=== PATIENT | male | born 1960 | race Caucasian/White ===

== ENCOUNTER 2016-11-08 17:59 | Inpatient (IN) | payer OTHER ==
[~2016-11-08] VITALS: Ht 165.1 cm; Wt 65.2 kg
[~2016-11-08 17:59] MED LIST: ABILIFY5 MG PO; CARAFATE E1 GM/10 ML PO; KLOR-CON M2020 MEQ PO; PRENATABS RX PO; PROTONIX40 MG PO; SLOW-MAG PO
--- NOTE | 2016-11-08 20:57 | ED ORDER SUMMARY ---
..... Patient: SURENDRA COVARRUBIAS OrderSheet [facility] VisitID: [id number] [place] [address] 56y, M Registration Date/Time: 11/08/2016 ORDER SHEET Weight: 68.0 kg (stated) Allergies: NKDA GENERAL ORDERS: Veterinary Epidemiologist (Continuous) (GIB) (18:42 11/08/2016 Jean Garcia) (18:53 LWhalen R.N.) (18:54 JSimbeck R.N.) CBC w Diff Urgent (18:42 11/08/2016 Jean Garcia) (Ack 18:47 Sushant) (18:53 LWhalen R.N.) (18:54 JSimbeck R.N.) CMP Urgent (18:42 11/08/2016 Jean Garcia) (Ack 18:47 Sushant) (18:53 LWhalen R.N.) (18:54 JSimbeck R.N.) UA-Culture if indicated Urgent (18:42 11/08/2016 Jean Garcia) (Ack 18:47 Sushant) (21:34 CBkoko R.N.) PT with INR Urgent (18:42 11/08/2016 Jean Garcia) (Ack 18:47 Sushant) (18:53 LWhalen R.N.) (18:54 JSimbeck R.N.) PTT Urgent (18:42 11/08/2016 Jean Garcia) (Ack 18:47 Sushant) (18:53 LWhalen R.N.) (18:54 JSimbeck R.N.) Lipase Urgent (18:42 11/08/2016 Jean Garcia) (Ack 18:47 Sushant) (18:53 LWhalen R.N.) (18:54 JSimbeck R.N.) Urine Drug Screen Urgent (18:42 11/08/2016 Jean Garcia) (Ack 18:47 Sushant) (21:34 CBradburn R.N.) Type & Screen Urgent (18:42 11/08/2016 Jean Garcia) (Ack 18:47 Sushant) (18:53 LWhalen R.N.) (18:54 JSimbeck R.N.) Ethyl Alcohol Urgent (18:42 11/08/2016 Jean Garcia) (Ack 18:47 Sushant) (18:53 LWhalen R.N.) (18:54 JSimbeck R.N.) Lactate, Serum Urgent (18:42 11/08/2016 Jean Garcia) (Ack 18:47 Sushant) (18:53 LWhalen R.N.) (18:54 JSimbeck R.N.) Pulse oximeter (18:42 11/08/2016 Jean Garcia) (18:54 JSemmaeck R.N.) Potassium Urgent (19:16 11/08/2016 Jean Garcia) (Ack 19:18 AMcQuoid ER Tech1) (19:40 CBradburn R.N.) Lactate, Serum Urgent (19:40 11/08/2016 Ibeth R.N. per protocol) (19:41 CBradburn R.N.) EKG - ER Stat (20:23 11/08/2016 Jean Garcia) (20:36 CBradburn R.N.) MEDICATION ORDERS: IV FLUIDS: IV NS : initial bolus 2 L, then none - for X1 (NOW) (18:42 11/08/2016 Jean Garcia) (18:57 LWhalen R.N.) Protonix IVP 80mg 80 mg (Mix in NS 20ml over 4min) (18:42 11/08/2016 Jean Garcia) (Ack 19:10 CBradburn R.N.) (19:15 CBradrogelio R.N.) Valium IV 10 mg (HIGH ALERT MEDICATION, NOW) (19:11 11/08/2016 Jean Garcia) (Cancelled: all out in the ED19:12 Jean Garcai) Ativan IV 2 mg (HIGH ALERT MEDICATION, NOW) (19:12 11/08/2016 Jean Garcia) (Ack 19:22 CBradburn R.N.) (19:23 Ibeth R.N.) Potassium Chloride IV 20 meq/100mL (HIGH ALERT MEDICATION, NOW, Run no faster than 10 mEq/hr) (19:15 11/08/2016 Jean Garcia) (Ack 19:25 Ibeth Collazo) (19:41 Ibeth Collazo) ORDER SHEET NOTES: [Electronically signed by Waleska Narayan R.N. (:11/08/2016)] [Electronically signed by London Camacho Dr. (11:47 11/09/2016)] [Electronically locked/signed by Waleska Narayan R.N. (:11/08/2016)]
--- NOTE | 2016-11-08 20:57 | ED CLINICAL REPORT ---
Clinical Report - Physicians/Mid Levels [facility] [address] [place] [address] 11/08/2016 18:00 Patient: SURENDRA COVARRUBIAS Time Seen: 1803. Arrived- By ambulance. Historian- patient and EMS personnel. HISTORY OF PRESENT ILLNESS Chief Complaint: VOMITING BLOOD. This started past few days, has been moderate and is still present. It was abrupt in onset and has been constant but is not gone now. The patient has had dark stools, nausea, vomiting and moderate abdominal pain. The pain is described as generalized and located in the epigastrium. No recent travel. No known contact with a sick individual. Similar symptoms previously: Recent medical care: Not recently seen/assessed. REVIEW OF SYSTEMS No fever, difficulty breathing, chest pain or skin rash. All systems otherwise negative, except as recorded above. PAST HISTORY See nurses notes. Medications: Gabapentin Oral 300 mg, 2x a day. PriLOSEC Oral. Allergies: NKDA. SOCIAL HISTORY Never smoker. Heavy alcohol use; consumes a large amount of liquor. No drug use. No recent travel. Is a local resident. FAMILY HISTORY (no fam hx of bleeding problems). ADDITIONAL NOTES The nursing notes have been reviewed. PHYSICAL EXAM Appearance: Alert. Oriented X3. No acute distress. Eyes: Pupils equal, round and reactive to light. Eyes normal inspection. No conjunctival findings or pale conjunctivae. ENT: Ears normal. Nose normal. Dry mucous membranes present. Pharynx normal. Neck: Normal inspection. Neck supple. CVS: Tachycardia. Heart sounds normal. Pulses normal. Rhythm normal. Respiratory: No respiratory distress. Breath sounds normal. No rales, rhonchi or wheezes. Abdomen: Soft and nontender. Bowel sounds normal. No mass. Back: Normal inspection. Rectal: Rectal exam normal and nontender. Stool color normal. Stool heme negative. (POC test reference range: negative). Skin: Skin warm and dry. Normal skin color. No rash. Normal skin turgor. Extremities: Extremities exhibit normal ROM. No lower extremity edema. Neuro: Oriented X 3. No motor deficit. No sensory deficit. (no tremor.). LABS, X-RAYS, AND EKG EKG: Regular narrow-complex tachycardia (104). Sinus tachycardia. Normal P waves. Normal DIONISIO. Normal QRS complex. Normal axis. Normal ST and T waves, QT and QTc. sinus tachycardia. The study has been interpreted contemporaneously. The study has been independently viewed by me. The EKG appears to be a good tracing. I agree with and confirm the computer reading of the EKG. Laboratory Tests: CBC w Diff: (RENAY: 11/08/2016 18:15) ( MsgRcvd 11/08/2016 18:55) Final results Test Result Flag Units (Reference) WHITE BLOOD COUNT 7.4 K/uL (4.5-11.5) RED BLOOD COUNT 5.10 M/uL (4.50-5.90) HEMOGLOBIN 16.7 gm/dL (13.5-17.5) HEMATOCRIT 48.5 % (41.0-53.0) MEAN CELL VOLUME 95 fL (80-100) MEAN CORPUSCULAR HGB 33 pg (26-34) MEAN CORPUSCULAR HGB CONC 34 g/dL (31-37) RED CELL DISTRIBUTION WIDTH 14.0 % (11.6-14.8) PLATELET COUNT 172 K/uL (150-400) NEUTROPHIL % 73.2 % (50-75) LYMPH % 12.8 L % (25-40) MONO % 13.4 % (3-14) EOSINOPHIL % 0.3 % (0-4) BASOPHIL % 0.3 % (0-2) PT with INR: (RENAY: 11/08/2016 18:15) ( MsgRcvd 11/08/2016 19:13) Final results Test Result Flag Units (Reference) INR 1.0 (0.8-1.2) Low Intensity Therapy: INR 1.5-2.0 PT range 18.5-23.1Mod.Intensity Therapy: INR 2.0-3.0 PT range 23.1-31.5High Intensity Therapy: INR 2.5-3.5 PT range 27.4-35.5High Intensity Therapy 2: INR 3.0-4.0 PT range 31.5-39.3 APTT 33 SECONDS (24-34) [id number]: (RENAY: 11/08/2016 19:35) ( [facility] 11/08/2016 20:24) Final results Test Result Flag Units (Reference) POTASSIUM 2.4 *L mmol/L (3.5-5.1) CRITICAL RESULTS CALLEDCalled to Vale WATSON 11/08/162022Were 2 patient identifiers used? YWas the result read back? Y MAGNESIUM 1.8 mg/dL (1.8-2.4) Lactate, Serum: (RENAY: 11/08/2016 18:50) ( [facility] 11/08/2016 19:44) Final results Test Result Flag Units (Reference) LACTIC ACID 3.5 H mmol/L (0.4-2.0) CRITICAL RESULTS CALLEDCalled to PRELIMINARY CALLED TO Vale PANDYA11/08/161942Were 2 patient identifiers used? YWas the result read back? YCRITICAL RESULTS CALLEDCalled to PRELIMINARY CALLED TO Vale PANDYA11/08/161943Were 2 patient identifiers used? YWas the result read back? Y CMP: (RENAY: 11/08/2016 18:15) ( [facility] 11/08/2016 19:16) Final results Test Result Flag Units (Reference) GLUCOSE 155 H mg/dL (70-110) BUN 10 mg/dL (7-18) CREATININE 0.9 mg/dL (0.6-1.3) Estimated GFR >60 mL/min Estimated GFR- >60 mL/min Note: Persistent reduction over 3 months in eGFR<60 mL/min/1.73 m2 defines CKD. Patients with eGFR values>=60 mL/min/1.73 m2 may also have CKD if evidence ofpersistent proteinuria. Additional information may be foundat [email or web address]. SODIUM 136 mmol/L (136-145) POTASSIUM 2.5 *L mmol/L (3.5-5.1) CRITICAL RESULTS CALLEDCalled to Vale ORTIZ 11/08/16 1915Were 2 patient identifiers used? YWas the result read back? Y CHLORIDE 93 L mmol/L (98-107) CARBON DIOXIDE 30 mmol/L (21-32) CALCIUM 8.7 mg/dL (8.5-10.1) TOTAL PROTEIN 7.4 g/dL (6.4-8.2) ALBUMIN 3.7 g/dL (3.3-5.0) BILIRUBIN, TOTAL 0.8 mg/dL (0.0-1.0) ALKALINE PHOSPHATASE 128 H U/L (46-116) AST (SGOT) 63 H U/L (15-37) ALT (SGPT) 53 U/L (12-78) MAGNESIUM 1.8 mg/dL (1.8-2.4) LIPASE 268 U/L (73-393) ETHYL ALCOHOL 363 H mg/dL (3-10) Type & Screen: (RENAY: 11/08/2016 18:15) ( MsgRcvd 11/08/2016 19:36) Final results Test Result Flag Units (Reference) PATIENT BLOOD TYPE O Positive ANTIBODY SCREEN NEGATIVE . PROGRESS AND PROCEDURES Course of Care: the patient is a pleasant 56-year-old male with past medical history significant for alcohol abuse presented for evaluation of alcohol intoxication and possible GI bleed. Workup initially started for GI bleed secondary to alcohol. Patient reports that he is vomiting "dark stuff". Patient asked exactly what he describes as dark. Patient continues to say it is dark. Further clarification asked. Some difficulty was needed to obtain that the patient was vomiting dark red colored vomit. Patient did not describe the vomitus coffee grounds. Patient states that he has been vomiting blood for the past several days. Patient with negative guaiac. Patient with other abnormalities with this workup. Potassium is noted to be low. Repeat potassium was ordered. I thinks also elevated. Repe Potassium was replaced here in the emergency department. EKG was also obtained for any signs of EKG changes due to hypokalemia. QT is slightly prolonged for a male at the QTc at 489. Otherwise patient is persistently slightly tachycardic. Patient did improve with IV fluids as well as a slight ptosis of Ativan. Patient's alcohol level is noted to be over 300. Because of the patient's electrolyte abnormalities and persistent lactic acidosis, feel the patient should be admitted to the hospital. Had a discussion with the hospitalist in regards to the patient's report of GI bleed. Do not feel further workup is warranted at this time however hemoglobin and hematocrit should be monitored in the hospital for any signs ofsignificant drop. Discussed with the patient is workup here in the emergency department including diagnosis and plan of care. All questions have been answered. The patient is agreeable to treatment plan. Appreciate hospitalist help and care with the patient. Critical care performed (40 minutes). Time is exclusive of separately billable procedures. Time includes: direct patient care, patient reassessment, coordination of patient care, review of patient's medical records, medical consultation and documentation of patient care. Disposition: Admitted to Acute Care. CLINICAL IMPRESSION Severe hypokalemia lactic acidemia upper GI bleed alcohol abuse severe dehydration. (Electronically signed by London Camacho Dr. 11/09/2016 11:47)
--- NOTE | 2016-11-08 20:57 | ED NURSING NOTES ---
Clinical Report - Nurses [facility] [address] [place] [address] 11/08/2016 18:00 Patient: SURENDRA COVARRUBIAS TRIAGE Triage time 18:Nov 08 2016. Acuity: LEVEL 3. Chief Complaint: (Wants detox). AGNES COMA SCORE: Agnes Coma Scale: 15- eyes open spontaneously (4); best verbal response- oriented x 4 (5); best motor response- obeys commands (6). --18:10 Alejandro Cabral R.N. 18:03 11/08/16. BP: 135/92. HR: 114. RR: 23. O2 saturation: 94%. Temp: 98 F. --18:10 Alejandro Cabral R.N. 18:13 11/08/16. Pain level now 9/10. --18:13 Alejandro Cabral R.N. Weight: 68 kg stated. Height/Length: 70 inches Per Patient. BMI: 21.5. --18:08 Alejandro Cabral R.N. Medications Gabapentin Oral 300 mg, 2x a day. PriLOSEC Oral. --18:06 Alejandro Cabral R.N. Allergies NKDA. --18:06 Alejandro Cabral R.N. History Arrived by EMS. Historian: patient. ( Has been drinking about a 1/5th a day for a month. House was filled with stool and vomit. States he is ready for detox. Patient states throwing up blood.). No fever, weakness, cough, difficulty breathing or skin rash. Denies muscle aches. Treatment VOLUNTEER RECRUITMENT COORDINATOR: None. PAST MEDICAL HX: No history of diabetes mellitus, hypertension or heart disease. SOCIAL HX: Current every day heavy tobacco smoker (cigarette)- less than 1 pack per day. Alcohol use; consumes a large amount of liquor daily. No drug use. SELF HARM ASSESSMENT: A self harm assessment was performed. The patient answered "no" to the question "Have you recently felt down, depressed, or hopeless?" and "Do you have thoughts of harming or killing yourself?". FALL RISK ASSESSMENT: Fall risk assessment completed. No fall risk identified. NUTRITIONAL RISK ASSESSMENT: The nutritional risk assessment revealed no deficiencies. FUNCTIONAL ASSESSMENT: Functional assessment: no impairments noted. LEARNING NEEDS ASSESSMENT: The learning needs assessment revealed no barriers. ABUSE ASSESSMENT: Abuse assessment: (yes) The patient was asked "Do you feel safe in your home?". SKIN INTEGRITY ASSESSMENT: Skin integrity risk assessment completed. No skin integrity risk identified. --18:10 Alejandro Cabral R.N. PROBLEMS: Hypertension. Alcoholism. Abdominal Pain. Alcohol abuse. Suicidal Ideation. ETOH. COPD - Chronic Obstructive Pulmonary Disease. Seizure. Stomach Ulcers. Lifestyle / Substance Problems. Gastritis. Bipolar Disorder. Substance Abuse. Alcohol Intoxication. Sinus Tachycardia. Alcohol Withdrawal. Hypokalemia. Immunizations. --18:06 Alejandro Cabral R.N. ADDITIONAL SURGERIES: Endoscopy. Eye surgery. Gastric surgery. Leg surgery. --18:06 Alejandro Cabral R.N. PHYSICAL ASSESSMENT To room via stretcher. ( +hiccups). GENERAL / NEURO / PSYCH: Alert. Oriented X 4. Appears anxious. HEENT: Pupils equal, round and reactive to light. No facial asymmetry noted. Mucous membranes are pink. RESPIRATORY: Respirations not labored. Chest nontender. Breath sounds within normal limits. CVS: Normal sinus rhythm noted. Capillary refill less than 2 seconds. Pulses within normal limits. GI / : ( States last BM one week ago.+ stomach pain). Abdomen soft and nontender. SKIN: ( scratches on face and body). --18:12 Alejandro Cabral R.N. NURSING PROGRESS NOTES The initial plan of care for this patient includes an assessment with efforts to address patient positioning, appropriate ambient lighting and comfortable environmental temperature; impairment of the gastrointestinal and neurological system. monitor tech, pulse oximeter and NIBP monitor placed on patient. Patient gowned. Head of bed elevated 75 degrees. Reassurance given. Call light placed in reach. Side rails up x 1. Bed placed in lowest position. Brakes of bed on. --18:13 Alejandro Cabral R.N. 18:43 11/08/2016 Site #2 started via IV in the left hand with an 18g angiocath, with aseptic technique and good blood return; one attempt. Saline lock flushed with saline. --18:58 Alejandro Cabral R.N. 18:52 11/08/2016 Site #1 started via IV in the right forearm with an 18g angiocath, with aseptic technique and good blood return; one attempt. Blood drawn: rainbow set. Labeled in the presence of the patient and sent to the lab. Saline lock flushed with 10 mL saline. --18:57 Alejandro Cabral R.N. 18:57 11/08/2016 Started bag #1 1000 mL IV Fluids IV NS (Saline); at 1000 mL/hr over 1 hour(s) via site #1 via IV pump. Allergies verified and confirmed 5 rights. IV patency established. IV site checked: no pain, redness, or swelling. IV flushed thoroughly pre- and post-medication administration. --18:57 Alejandro Cabral R.N. 19:15 11/08/2016 PROTONIX (Pantoprazole Sodium) IVP 80 mg given over 2 minute(s) via site #1. Allergies verified and confirmed 5 rights. IV patency established. IV site checked: no pain, redness, or swelling. IV flushed thoroughly pre- and post-medication administration. IVP given by RN. --19:15 Waleska Narayan R.N. 19:22 11/08/2016 Ativan (LORazepam) IVP 2 mg given over 2 minute(s) via site #1. Allergies verified, confirmed 5 rights and sedative warning given to the patient. IV patency established. IV site checked: no pain, redness, or swelling. IV flushed thoroughly pre- and post-medication administration. IVP given by RN. --19:23 Waleska Narayan R.N. Critical value relayed to ED by pema. Critical value received by hermelinda fischer Lactate level: 3.5. Critical value read back. Verified lab result and patient ID. ED physician notifed of critical value. --19:29 Hermelinda Bhardwaj Critical value relayed to ED by lab 19:12. Critical value received by dara. K: 2.5. Critical value read back. ED physician notifed of critical value (Dino). Orders were received. --19:32 Waleska Narayan R.N. 19:40 11/08/2016 Started 20 meq of Potassium Chloride (Potassium Chloride) IVPB in bag #1 100 mL; over 2 hour(s) via site #1 via IV pump. Allergies verified and confirmed 5 rights. IV patency established. IV site checked: no pain, redness, or swelling. IV flushed thoroughly pre- and post-medication administration. --19:41 Waleska Narayan R.N. 19:41 11/08/2016 Site #2 removed. Catheter intact. Manual pressure and bandage applied (IV no longer flowing, Patent IV in right arm). --19:42 Waleska Narayan R.N. 19:15 11/08/16. BP: 118/76 taken on the left arm, while lying. HR: 116 (regular and tachycardic). RR: 18. O2 saturation: 95% on room air. Pain level now: 0/10. --19:45 Waleska Narayan R.N. Overall patient status is the same. GENERAL / NEURO / PSYCH: The patient reports anxiety is still present and worsening and currently moderate in severity. --19:45 Waleska Narayan R.N. Oxygen administered. --19:51 Waleska Narayan R.N. 20:00 11/08/2016 Ativan IVP Response: symptoms have improved the patient feels better. (pt resting better,). --20:00 Waleska Narayan R.N. Overall patient status is improved- he states feels better. GENERAL / NEURO / PSYCH: The patient reports anxiety is still present but improving and currently mild in severity. RESPIRATORY: No respiratory distress. Breath sounds normal. SKIN: Skin is warm and dry. Skin color within normal limits. --20:01 Waleska Narayan R.N. Critical value relayed to ED by Pema 20:23. Critical value received by Dara. K: 2.4. Critical value read back. Verified lab result and patient ID. ED physician notifed of critical value (Dino). Orders were not received. --20:24 Waleska Narayan R.N. EKG time: (2032 PM). EKG was performed by a nurse and shown to the ED physician. dino. Reassessment after oxygen and fluids administered, intervention and medication administered (ativan). He reports no complaints and he is calm and sleeping. Overall patient status is improved- he states feels better. RESPIRATORY: No respiratory distress. Breath sounds normal. SKIN: Skin is warm and dry. Skin color within normal limits. --20:38 Waleska Narayan R.N. 20:44 11/08/16. BP: 121/78 taken on the left arm, while lying. HR: 111 (regular and tachycardic). RR: 20 (regular and unlabored). O2 saturation: 96% on nasal cannula at 3 liters/minute. Temp: 98.5 F (oral). Pain level now: 0/10. --20:46 Waleska Narayan R.N. Overall patient status is improved- he states feels better. --20:46 Waleska Narayan R.N. Two patient identifiers checked. Call light placed in reach. Side rails up x 2. Bed placed in lowest position. Brakes of bed on. --20:46 Waleska Narayan R.N. Patient ID band checked for patient name: patient confirmed. Instructions provided to collect clean catch urine and patient verbalized understanding. Clean catch urine collected with return of yellow-colored clear urine; sample sent to lab for urinalysis, culture and drug screen. Specimen labeled in the presence of the patient (2100). --21:16 Waleska Narayan R.N. 21:34 11/08/2016 IV Fluids IV NS Discontinued: bag #2 completed. Total amount infused: 2000 mL. IV patency established. IV site checked: no pain, redness, or swelling. IV flushed thoroughly. --21:34 Waleska Narayan R.N. 21:35 11/08/2016 Potassium Chloride IVPB Discontinued: bag #1 completed. Total amount infused: 100 mL. IV patency established. IV site checked: no pain, redness, or swelling. IV flushed thoroughly. --21:35 Waleska Narayan R.N. Two patient identifiers checked. Call light placed in reach. Side rails up x 2. Bed placed in lowest position. Brakes of bed on. --22:12 Waleska Narayan R.N. 22:11 11/08/16. BP: 111/74. HR: 110. RR: 18. O2 saturation: 97% on nasal cannula at 2 liters/minute. Temp: 98.6 F (oral). Pain level now: 0/10. --22:12 Waleska Narayan R.N. DISPOSITION / DISCHARGE Report was given to a nurse via a phone call. Report included patient's care, treatment, medications, reviewed medication reconcilliation, and condition (including any recent changes or anticipated changes). All questions were answered. Report was acknowledged and care was transferred. (Miguel RN). --22:12 Waleska Narayan R.N. Transported via stretcher by tech with O2. Bed obtained and ready (204A). --22:13 Waleska Narayan R.N. 22:13 11/08/2016 Site #[address] upon admission; patent, no pain and no signs of infection or infiltration. Good blood return present. Flushed with 10 mL saline; flushes easily. --22:13 Waleska Narayan R.N. Departure time: 2217. --22:26 Waleska Narayan R.N. 22:26 11/08/16. BP: deferred. HR: deferred. RR: deferred. O2 saturation: deferred. Temp: deferred. End tidal CO2: deferred. Pain level now deferred. --22:26 Waleska Narayan R.N. Locked/Released at 11/08/2016 22:26 by Waleska Narayan R.N.
--- NOTE | 2016-11-08 20:57 | ED ORDER SUMMARY ---
..... Patient: SURENDRA COVARRUBIAS OrderSheet [facility] VisitID: [id number] [place] [address] 56y, M Registration Date/Time: 11/08/2016 ORDER SHEET Weight: 68.0 kg (stated) Allergies: NKDA GENERAL ORDERS: Band Maker (Continuous) (GIB) (18:42 11/08/2016 Jean Garcia) (18:53 LWhalen R.N.) (18:54 JSimbeck R.N.) CBC w Diff Urgent (18:42 11/08/2016 Jean Garcia) (Ack 18:47 Sushant) (18:53 LWhalen R.N.) (18:54 JSimbeck R.N.) CMP Urgent (18:42 11/08/2016 Jean Garcia) (Ack 18:47 Sushant) (18:53 LWhalen R.N.) (18:54 JSimbeck R.N.) UA-Culture if indicated Urgent (18:42 11/08/2016 Jean Garcia) (Ack 18:47 Sushant) (21:34 CBkoko R.N.) PT with INR Urgent (18:42 11/08/2016 Jean Garcia) (Ack 18:47 Sushant) (18:53 LWhalen R.N.) (18:54 JSimbeck R.N.) PTT Urgent (18:42 11/08/2016 Jean Garcia) (Ack 18:47 Sushant) (18:53 LWhalen R.N.) (18:54 JSimbeck R.N.) Lipase Urgent (18:42 11/08/2016 Jean Garcia) (Ack 18:47 Sushant) (18:53 LWhalen R.N.) (18:54 JSimbeck R.N.) Urine Drug Screen Urgent (18:42 11/08/2016 Jean Garcia) (Ack 18:47 Sushant) (21:34 CBradburn R.N.) Type & Screen Urgent (18:42 11/08/2016 Jean Garcia) (Ack 18:47 Sushant) (18:53 LWhalen R.N.) (18:54 JSimbeck R.N.) Ethyl Alcohol Urgent (18:42 11/08/2016 Jean Garcia) (Ack 18:47 Sushant) (18:53 LWhalen R.N.) (18:54 JSimbeck R.N.) Lactate, Serum Urgent (18:42 11/08/2016 Jean Garcia) (Ack 18:47 Sushant) (18:53 LWhalen R.N.) (18:54 JSimbeck R.N.) Pulse oximeter (18:42 11/08/2016 Jena Garcia) (18:54 JSemmaeck R.N.) Potassium Urgent (19:16 11/08/2016 Jean Garcia) (Ack 19:18 AMcQuoid ER Tech1) (19:40 CBradburn R.N.) Lactate, Serum Urgent (19:40 11/08/2016 Ibeth R.N. per protocol) (19:41 CBradburn R.N.) EKG - ER Stat (20:23 11/08/2016 Jean Garcia) (20:36 CBradburn R.N.) MEDICATION ORDERS: IV FLUIDS: IV NS : initial bolus 2 L, then none - for X1 (NOW) (18:42 11/08/2016 Jean Garcia) (18:57 LWhalen R.N.) Protonix IVP 80mg 80 mg (Mix in NS 20ml over 4min) (18:42 11/08/2016 Jean Garcia) (Ack 19:10 CBradburn R.N.) (19:15 CBradrogelio R.N.) Valium IV 10 mg (HIGH ALERT MEDICATION, NOW) (19:11 11/08/2016 Jean Garcia) (Cancelled: all out in the ED19:12 Jean Garcia) Ativan IV 2 mg (HIGH ALERT MEDICATION, NOW) (19:12 11/08/2016 Jean Garcia) (Ack 19:22 CBradburn R.N.) (19:23 Ibeth R.N.) Potassium Chloride IV 20 meq/100mL (HIGH ALERT MEDICATION, NOW, Run no faster than 10 mEq/hr) (19:15 11/08/2016 Jean Garcia) (Ack 19:25 Ibeth Collazo) (19:41 Ibeth Collazo) ORDER SHEET NOTES: [Electronically signed by Waleska Narayan R.N. (:11/08/2016)] [Electronically signed by London Camacho Dr. (11:47 11/09/2016)] [Electronically locked/signed by Waleska Narayan R.N. (:11/08/2016)]
[2016-11-08 22:36] VITALS: BP 130/84
--- NOTE | 2016-11-08 23:35 | History & Physical Report ---
Information Source Information Source: Self Reliability: Fair History Chief Complaint vomiting blood History of Present Illness Patient is a 56 year old male who is presenting with a 5 day history of vomiting blood. Patient came to the ER at the behest of his mother who claims that the patient has been living in his own vomit and feces due to his excessive drinking. Patient claims that he does drink excessively every day and that often he consumes close to a pint of hard liquor every single day if not more. Patient claims that he has been drinking this excessively for the past month, with no real reason. Patient says that he was a frequent drinker before but then it spiralled out of control and now he drinks every singel day all day. Five days ago the patient noticed that he was vomiting up blood every time he vomited. Patient vomits frequently due to drinking, so that wasnt abnormal for him. However for him to vomit blood was abnormal. Patient came to the hospital intoxicated on alcohol and was retching frequently. Patient vomited a few times and in all instances there was no blood present. Currently patient is hemodynamically stable. Patient History 1. Alcohol abuse 2. Alcoholic gastritis with bleeding 3. Hypokalemia 4. 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 He lives alone at his own home. Patient is . Patient drinks every day 1 pint daily. He additionally smokes cigarettes for the past 10 years, a half a pack a day. Patient does not uses illicit substances. Family History Family history was reviewed; no changes noted. Medications and Allergies Medications Home Medications Pt claims no medications Current Medications Sig/Francis Start time Last Medication Dose Route Stop Time Status Admin Multivit/ 1 TAB DAILY 11/09 899 AC Folic Acid/Iron PO Thiamine HCl 100 MG DAILY 11/09 899 AC PO Pantoprazole Sodium 40 MG PPIBID 11/09 599 AC IV Potassium Chloride 100 MEQ ONCE 11/09 0515 UNV IV Lorazepam See Dose Q2H PRN 11/08 2300 AC 11/09 Insts (1) IV 0350 Multivitamins 10 ML ONCE ONE 11/08 2300 AC 11/08 Thiamine HCl 100 MG IV 11/09 0559 2346 Folic Acid 1 MG Sodium Chloride 500 ML Ondansetron HCl See Dose Q4H PRN 11/08 2300 AC 11/09 Insts (2) IV 0123 Promethazine HCl See Dose Q4H PRN 11/08 2300 AC Insts (3) IV Acetaminophen 650 MG Q6H PRN 11/08 2145 AC 11/09 PO 0354 Sodium Chloride/ 1,000 ML ASDIRECTED 11/08 2144 11/09 Electrolytes IV 0213 Dose Instructions: (1)Lorazepam: 1 - 2 MG (2)Ondansetron HCl: 4 - 8 MG (3)Promethazine HCl: 12.5 - 25 MG Allergies Coded Allergies: No Known Drug Allergy (11/09/16) Review of Systems Constitutional Sweats, Weakness, Malaise. Denies: Fever, Chills, Other. Eyes Denies: Pain, Vision Change, Conjunctival Inflammation, Eyelid Inflammation, Redness, Other. ENT Denies: Ear Pain, Ear Discharge, Nose Pain, Nasal Discharge, Nasal Congestion, Mouth Pain, Mouth Swelling, Throat Pain, Throat Swelling, Other. Respiratory Denies: Cough, Dry, SOB w/exertion, Wheezing, Hemoptysis, Pleuritic Pain, Sputum , Other. Cardiovascular Denies: Chest Pain, Palpitations, Orthopnea, PND, Edema, Light-headedness, Other. Gastrointestinal Nausea, Vomiting, Abdominal Pain. Denies: Diarrhea, Constipation, Melena, Hematochezia, Other. Genitourinary Denies: Dysuria, Frequency, Incontinence, Hematuria, Retention, Other. Musculoskeletal Denies: Neck Pain, Shoulder Pain, Arm Pain, Back Pain, Hand Pain, Leg Pain, Foot Pain, Other. Neurological Denies: Weakness, Numbness, Incoordination, Change in speech, Confusion, Seizures, Other. Physical Exam Vital Signs / I&Os Vital Signs Date Time Temp Pulse Resp B/P Pulse O2 O2 Flow FiO2 Ox Delivery Rate 11/09 0143 2.0 11/09 0132 98.8 124 18 110/71 95 Nasal 2.0 Cannula 11/08 2358 Nasal 2.0 Cannula 11/08 2236 98.8 120 18 130/84 93 Nasal 2.0 Cannula I&O 11/08 0800 11/08 1600 11/09 0000 Intake Total 0 Output Total 500 Balance -500 General Appearance Alert, Cooperative, No acute distress HEENT Atraumatic, PERRLA, Moist mucous membranes Lungs Clear to auscultation Neck No JVD, No masses Cardiovascular Regular rate and rhythm, Normal S1 and S2, No murmurs, gallops, rubs Abdomen Soft, No tenderness, No guarding Extremities No edema, Normal pulses, Strength = upper ext's, Strength = lower ext's, Anshu's sign negative Skin No Breakdown Neurological Normal speech, Normal tone, Cranial nerves intact, No lateralizing signs Psych/Mental Status Mood normal LAB Results Laboratory Tests 11/08 11/08 11/08 11/08 1815 1850 1935 193 Chemistry Plasma Sodium (136 - 145 mmol/L) 136 Plasma Potassium (3.5 - 5.1 mmol/L) 2.5 2.4 Plasma Chloride (98 - 107 mmol/L) 93 CO2 (Enzymatic) (21 - 32 mmol/L) 30 BUN (7 - 18 mg/dL) 10 Creatinine (0.6 - 1.3 mg/dL) 0.9 Est GFR ( Amer) (mL/min) >60 Est GFR (Non-Af Amer) (mL/min) >60 Glucose (70 - 110 mg/dL) 155 Lactic Acid (0.4 - 2.0 mmol/L) 3.5 3.7 Plasma Calcium (8.5 - 10.1 mg/dL) 8.7 Plasma Magnesium (1.8 - 2.4 mg/dL) 1.8 1.8 Total Bilirubin (0.0 - 1.0 mg/dL) 0.8 AST (15 - 37 U/L) 63 ALT (12 - 78 U/L) 53 Alkaline Phosphatase (46 - 116 U/L) 128 Total Protein (6.4 - 8.2 g/dL) 7.4 Albumin (3.3 - 5.0 g/dL) 3.7 Lipase (73 - 393 U/L) 268 Coagulation INR (0.8 - 1.2) 1.0 APTT (24 - 34 SECONDS) 33 Hematology WBC (4.5 - 11.5 K/uL) 7.4 RBC (4.50 - 5.90 M/uL) 5.10 Hgb (13.5 - 17.5 gm/dL) 16.7 Hct (41.0 - 53.0 %) 48.5 MCV (80 - 100 fL) 95 MCH (26 - 34 pg) 33 RDW (11.6 - 14.8 %) 14.0 Neut % (Auto) (50 - 75 %) 73.2 Lymph % (Auto) (25 - 40 %) 12.8 [place] % (Auto) (3 - 14 %) 13.4 Eos % (Auto) (0 - 4 %) 0.3 Baso % (Auto) (0 - 2 %) 0.3 Plt Count, EDTA (150 - 400 K/uL) 172 PUBS MCHC (31 - 37 g/dL) 34 Toxicology Plasma/Serum Ethyl Alc (3 - 10 mg/dL) 363 11/08 11/09 11/09 2100 0100 0110 Chemistry Plasma Sodium (136 - 145 mmol/L) Cancelled 141 Plasma Potassium (3.5 - 5.1 mmol/L) Cancelled 2.9 Plasma Chloride (98 - 107 mmol/L) Cancelled 100 CO2 (Enzymatic) (21 - 32 mmol/L) Cancelled 29 BUN (7 - 18 mg/dL) Cancelled 8 Creatinine (0.6 - 1.3 mg/dL) Cancelled 0.7 Est GFR ( Amer) (mL/min) Cancelled >60 Est GFR (Non-Af Amer) (mL/min) Cancelled >60 Glucose (70 - 110 mg/dL) Cancelled 107 Plasma Calcium (8.5 - 10.1 mg/dL) Cancelled 7.8 Plasma Magnesium (1.8 - 2.4 mg/dL) 1.6 Total Bilirubin (0.0 - 1.0 mg/dL) 1.0 AST (15 - 37 U/L) 49 ALT (12 - 78 U/L) 40 Alkaline Phosphatase (46 - 116 U/L) 104 Total Protein (6.4 - 8.2 g/dL) 5.7 Albumin (3.3 - 5.0 g/dL) 3.0 Hematology WBC (4.5 - 11.5 K/uL) 8.3 RBC (4.50 - 5.90 M/uL) 4.31 Hgb (13.5 - 17.5 gm/dL) 14.3 Hct (41.0 - 53.0 %) 41.3 MCV (80 - 100 fL) 96 MCH (26 - 34 pg) 33 RDW (11.6 - 14.8 %) 14.5 Neut % (Auto) (50 - 75 %) 75.5 Lymph % (Auto) (25 - 40 %) 13.0 [place] % (Auto) (3 - 14 %) 10.8 Eos % (Auto) (0 - 4 %) 0.5 Baso % (Auto) (0 - 2 %) 0.2 Plt Count, EDTA (150 - 400 K/uL) 139 PUBS MCHC (31 - 37 g/dL) 35 Toxicology Urine Opiates Screen (NEGATIVE) NEGATIVE Urine Methadone Screen (NEGATIVE) NEGATIVE Ur Barbiturates Screen (NEGATIVE) NEGATIVE U Amphetamin/Meth Scrn (NEGATIVE) NEGATIVE MDMA (Ecstasy) Screen (NEGATIVE) NEGATIVE U Benzodiazepines Scrn (NEGATIVE) NEGATIVE Urine Cocaine Screen (NEGATIVE) NEGATIVE U Cannabinoids Screen (NEGATIVE) NEGATIVE Urines Urine Color YELLOW Urine Appearance CLEAR Urine pH (5.0 - 8.0) 6.0 Ur Specific [place] (1.010 - 1.030) <= 1.005 Urine Protein (NEGATIVE) 1+ Urine Ketones (NEGATIVE) NEGATIVE Urine Blood (NEGATIVE) TRACE-LYSED Urine Nitrite (NEGATIVE) NEGATIVE Urine Bilirubin (NEGATIVE) NEGATIVE Urine Urobilinogen (0.2 - 1.0 EU/dL) 0.2 Ur Leukocyte Esterase (NEGATIVE) NEGATIVE Urine RBC (0 - 1 rbc/hpf) 1-3 Urine WBC (0 - 1 wbc/hpf) 1-3 Ur Epithelial Cells (0 - 5 EPI/hpf) RARE Urine Bacteria (NONE SEEN) NONE SEEN Urine Glucose (NEGATIVE) NEGATIVE Urine Comment CULT NOT INDICATED 11/09 0110 Chemistry Lactic Acid (0.4 - 2.0 mmol/L) 3.4 Assessment and Plan Problem List 1. Alcohol abuse Plan - pt has clear alcoholism - his degree of drinking will most lkiely result in withdrawal symptoms - currently pts CIWA score does not require sedation - will provide thiamine and folate supplementation - will provide adequate hydration - ativan on hold in case of seizure/withdrawal activity 2. Alcoholic gastritis with bleeding Plan - pt claims to have been vomiting blood - currently patient has a stable hemoglobin with no evidence of bleeding - will continue to monitor 3. Hypokalemia Plan - pt is presenting with hypokalemia - no ekg changes noted - after 60 meq pts potassium was lower than previously - will rehdyrate with supplmental potassium -will provide 100 meq right now - will continually monitor 4. Lactic acid acidosis Plan - pt has evidence of lactic acidosis - unlcear etiology but presumably from excessive drinking - will adequatly hydrate patient - will trend lactic acid
[2016-11-09] VITALS (10 sets, daily range): BP systolic 110–158; BP diastolic 71–85
[2016-11-09] MEDS ORDERED: NEURONTIN300 MG PO (03:42)
[2016-11-09] MEDS ORDERED: PRILOSEC20 MG PO (03:43)
--- NOTE | 2016-11-09 05:53 | Progress Note ---
Subjective General ADVANCED CARE PLAN History of Present Illness Patient is a 56 year old male who is presenting with a 5 day history of vomiting blood. Patient came to the ER at the behest of his mother who claims that the patient has been living in his own vomit and feces due to his excessive drinking. Patient claims that he does drink excessively every day and that often he consumes close to a pint of hard liquor every single day if not more. Patient claims that he has been drinking this excessively for the past month, with no real reason. Patient says that he was a frequent drinker before but then it spiralled out of control and now he drinks every singel day all day. Five days ago the patient noticed that he was vomiting up blood every time he vomited. Patient vomits frequently due to drinking, so that wasnt abnormal for him. However for him to vomit blood was abnormal. Patient came to the hospital intoxicated on alcohol and was retching frequently. Patient vomited a few times and in all instances there was no blood present. Currently patient is hemodynamically stable. A discussion was undertaken with the patient regarding previous advance care arrangements/decisions. The following advanced directives were noted by the patient and discussed with me at the time of admission. ADVANCED DIRECTIVES: 1. Living well: No 2. POLST: No 3. CODE STATUS: Full Code 4. 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 Donor card: No The patient has expressed interest in pursuing resuscitation. He has opted to pursue intubation/mechanical ventilation, CPR, electrical cardioversion, or life -sustaining efforts involving drugs at the time of cardiopulmonary arrest. The patient's wishes were documented in the chart and orders regarding the patient's wishes entered into the [employer] CPOE system. The "Advance Care Plan Document" was not distributed to patient to discuss with his family. Less than 30 minutes was spent in performing the above tasks and documentation of the patient's advanced care plan.
--- NOTE | 2016-11-09 07:53 | Progress Note ---
Subjective General Note Date: November 09, 2016 Admission Date: November 08, 2016 Hospital Day: 2 PCP: None Status: Inpatient, ACU Advanced Directive: FULL CODE Room: 204-A Admission History: The patient is a 56-year-old white male with a significant past medical history of alcohol abuse/dependence who presented to [facility] emergency department on the day of admission secondary to complaints of hematemesis. [facility] ER evaluation was consistent with acute alcohol intoxication, alcohol dependence/abuse, suspected upper GI bleed, hypokalemia. Secondary to the above, the patient was admitted by Karthik Huggins M.D. for further evaluation and treatment. For other history present illness, past medical history, family history, social history, review of systems, and admission physical examination please see the patient's history and physical examination and ER visit note in the patient's medical record. Subjective: The patient states remains anxious at this time. Slight confusion. Nausea improved. No recent vomiting. Patient requests: None Medications and Allergies Medications Current Medications Sig/Francis Start time Last Medication Dose Route Stop Time Status Admin Potassium Chloride/ 100 ML 1330 ONE 11/09 1330 AC Water IV 11/09 1529 Potassium Chloride/ 100 ML 1130 ONE 11/09 1130 AC Water IV 11/09 1329 Potassium Chloride/ 100 ML 0930 ONE 11/09 0930 AC Water IV 11/09 1129 Multivit/ 1 TAB DAILY 11/09 0900 AC Folic Acid/Iron PO Thiamine HCl 100 MG DAILY 11/09 0900 AC PO Potassium Chloride/ 100 ML 0730 ONE 11/09 0730 AC 11/09 Water IV 11/09 0929 0729 Pantoprazole Sodium 40 MG PPIBID 11/09 0600 AC 11/09 IV 0519 Potassium Chloride 100 MEQ ONCE 11/09 0515 CAN IV Lorazepam See Dose Q2H PRN 11/08 2300 AC 11/09 Insts (1) IV 0625 Ondansetron HCl See Dose Q4H PRN / 2300 AC 11/09 Insts (2) IV 0123 Promethazine HCl See Dose Q4H PRN 11/08 2300 AC Insts (3) IV Acetaminophen 650 MG Q6H PRN / 2145 AC 11/09 PO 0354 Sodium Chloride/ 1,000 ML ASDIRECTED 11/08 2144 AC 11/09 Electrolytes IV 0213 Dose Instructions: (1)Lorazepam: 1 - 2 MG (2)Ondansetron HCl: 4 - 8 MG (3)Promethazine HCl: 12.5 - 25 MG Allergies Coded Allergies: No Known Drug Allergy (11/09/16) Physical Exam Vital Signs / I&Os Vital Signs Date Time Temp Pulse Resp B/P Pulse O2 O2 Flow FiO2 Ox Delivery Rate 11/09 0742 2.0 11/09 0655 98.8 101 18 120/81 94 Nasal 2.0 Cannula 11/09 0143 2.0 11/09 0132 98.8 124 18 110/71 95 Nasal 2.0 Cannula 11/08 2358 Nasal 2.0 Cannula 11/08 2236 98.8 120 18 130/84 93 Nasal 2.0 Cannula I&O 11/09 0000 11/08 1600 11/08 0800 Intake Total 0 Output Total 500 Balance -500 General Appearance Alert, Cooperative, No acute distress Lungs Clear to auscultation Cardiovascular Regular rate and rhythm, Normal S1 and S2, mild tachycardia Abdomen Normal bowel sounds, Soft, No tenderness, No guarding Extremities No cyanosis, No clubbing, No edema Neurological Cranial nerves intact, No lateralizing signs, tremor Psych/Mental Status Confused, anxious LAB Results Laboratory Tests 11/09 11/09 11/09 0110 0110 0100 Chemistry Plasma Sodium (136 - 145 mmol/L) 141 Cancelled Plasma Potassium (3.5 - 5.1 mmol/L) 2.9 Cancelled Plasma Chloride (98 - 107 mmol/L) 100 Cancelled CO2 (Enzymatic) (21 - 32 mmol/L) 29 Cancelled BUN (7 - 18 mg/dL) 8 Cancelled Creatinine (0.6 - 1.3 mg/dL) 0.7 Cancelled Est GFR ( Amer) (mL/min) >60 Cancelled Est GFR (Non-Af Amer) (mL/min) >60 Cancelled Glucose (70 - 110 mg/dL) 107 Cancelled Lactic Acid (0.4 - 2.0 mmol/L) 3.4 Plasma Calcium (8.5 - 10.1 mg/dL) 7.8 Cancelled Plasma Magnesium (1.8 - 2.4 mg/dL) 1.6 Total Bilirubin (0.0 - 1.0 mg/dL) 1.0 AST (15 - 37 U/L) 49 ALT (12 - 78 U/L) 40 Alkaline Phosphatase (46 - 116 U/L) 104 Total Protein (6.4 - 8.2 g/dL) 5.7 Albumin (3.3 - 5.0 g/dL) 3.0 Hematology WBC (4.5 - 11.5 K/uL) 8.3 RBC (4.50 - 5.90 M/uL) 4.31 Hgb (13.5 - 17.5 gm/dL) 14.3 Hct (41.0 - 53.0 %) 41.3 MCV (80 - 100 fL) 96 MCH (26 - 34 pg) 33 RDW (11.6 - 14.8 %) 14.5 Neut % (Auto) (50 - 75 %) 75.5 Lymph % (Auto) (25 - 40 %) 13.0 [place] % (Auto) (3 - 14 %) 10.8 Eos % (Auto) (0 - 4 %) 0.5 Baso % (Auto) (0 - 2 %) 0.2 Plt Count, EDTA (150 - 400 K/uL) 139 PUBS MCHC (31 - 37 g/dL) 35 11/08 05/02 11/08 05/ 2100 1935 1935 1850 Chemistry Plasma Potassium (3.5 - 5.1 mmol/L) 2.4 Lactic Acid (0.4 - 2.0 mmol/L) 3.7 3.5 Plasma Magnesium (1.8 - 2.4 mg/dL) 1.8 Toxicology Urine Opiates Screen (NEGATIVE) NEGATIVE Urine Methadone Screen (NEGATIVE) NEGATIVE Ur Barbiturates Screen (NEGATIVE) NEGATIVE U Amphetamin/Meth Scrn (NEGATIVE) NEGATIVE MDMA (Ecstasy) Screen (NEGATIVE) NEGATIVE U Benzodiazepines Scrn (NEGATIVE) NEGATIVE Urine Cocaine Screen (NEGATIVE) NEGATIVE U Cannabinoids Screen (NEGATIVE) NEGATIVE Urines Urine Color YELLOW Urine Appearance CLEAR Urine pH (5.0 - 8.0) 6.0 Ur Specific [place] (1.010 - 1.030) <= 1.005 Urine Protein (NEGATIVE) 1+ Urine Ketones (NEGATIVE) NEGATIVE Urine Blood (NEGATIVE) TRACE-LYSED Urine Nitrite (NEGATIVE) NEGATIVE Urine Bilirubin (NEGATIVE) NEGATIVE Urine Urobilinogen (0.2 - 1.0 EU/dL) 0.2 Ur Leukocyte Esterase (NEGATIVE) NEGATIVE Urine RBC (0 - 1 rbc/hpf) 1-3 Urine WBC (0 - 1 wbc/hpf) 1-3 Ur Epithelial Cells (0 - 5 EPI/hpf) RARE Urine Bacteria (NONE SEEN) NONE SEEN Urine Glucose (NEGATIVE) NEGATIVE Urine Comment CULT NOT INDICATED 11/08 1814 Chemistry Plasma Sodium (136 - 145 mmol/L) 136 Plasma Potassium (3.5 - 5.1 mmol/L) 2.5 Plasma Chloride (98 - 107 mmol/L) 93 CO2 (Enzymatic) (21 - 32 mmol/L) 30 BUN (7 - 18 mg/dL) 10 Creatinine (0.6 - 1.3 mg/dL) 0.9 Est GFR ( Amer) (mL/min) >60 Est GFR (Non-Af Amer) (mL/min) >60 Glucose (70 - 110 mg/dL) 155 Plasma Calcium (8.5 - 10.1 mg/dL) 8.7 Plasma Magnesium (1.8 - 2.4 mg/dL) 1.8 Total Bilirubin (0.0 - 1.0 mg/dL) 0.8 AST (15 - 37 U/L) 63 ALT (12 - 78 U/L) 53 Alkaline Phosphatase (46 - 116 U/L) 128 Total Protein (6.4 - 8.2 g/dL) 7.4 Albumin (3.3 - 5.0 g/dL) 3.7 Lipase (73 - 393 U/L) 268 Coagulation INR (0.8 - 1.2) 1.0 APTT (24 - 34 SECONDS) 33 Hematology WBC (4.5 - 11.5 K/uL) 7.4 RBC (4.50 - 5.90 M/uL) 5.10 Hgb (13.5 - 17.5 gm/dL) 16.7 Hct (41.0 - 53.0 %) 48.5 MCV (80 - 100 fL) 95 MCH (26 - 34 pg) 33 RDW (11.6 - 14.8 %) 14.0 Neut % (Auto) (50 - 75 %) 73.2 Lymph % (Auto) (25 - 40 %) 12.8 [place] % (Auto) (3 - 14 %) 13.4 Eos % (Auto) (0 - 4 %) 0.3 Baso % (Auto) (0 - 2 %) 0.3 Plt Count, EDTA (150 - 400 K/uL) 172 PUBS MCHC (31 - 37 g/dL) 34 Toxicology Plasma/Serum Ethyl Alc (3 - 10 mg/dL) 363 Assessment and Plan Problem List 1. GI bleed Plan -Patient presented with findings of hematemesis -No documented hematemesis since admission -Protonix 40 mg IV twice a day -Monitor serial H&H -Old endoscopy unless recurrent emesis/hematemesis/significant upper GI bleed noted -Plan upper endoscopy prior to discharge if stable 2. Alcoholic gastritis Status Acute Onset Date Unknown Plan -Patient with probable alcoholic gastritis -DC EtOH use -Protonix 40 mg IV twice a day -Monitor 3. Hypomagnesemia Plan -Patient with findings of hypomagnesemia -IV/by mouth supplementation -Monitor 4. Hypokalemia Plan -Patient with severe hypokalemia -IV supplementation -Monitor 5. Alcohol intoxication Status Acute Onset Date Unknown Plan -Patient with findings of alcohol intoxication on admission -Patient placed on alcohol withdrawal protocol secondary to alcohol dependence -Alcohol consumption of approximately 1/5 of hard liquor per day -We'll encourage alcohol treatment program post hospitalization 6. Alcohol dependence Status Chronic Onset Date Unknown Plan -See above -Patient appears in early stages of alcohol withdrawal syndrome -Altered mental status -Alcohol withdrawal protocol -Encourage alcohol abstinence program post discharge/alcohol treatment program 7. Lactic acid acidosis Plan -Resolved Current status: Fair, unstable Anticipated discharge date: Anticipated discharge 4-5 days Anticipated discharge placement: Home Patient care time: Time spent in chart review, patient interview, physical exam, CPOE, and care documentation: 35 minutes Visit to patient today: 2 Complexity of care: High E&M Codes Rounding: Inpt-High/[id number]
--- NOTE | 2016-11-09 11:47 | ED DISCHARGE INSTRUCTIONS ---
Patient: SURENDRA COVARRUBIAS General Instructions [facility] VisitID: [id number] [address] [place] [address] 56y, M Registration Date/Time: 11/08/2016 Severe hypokalemia lactic acidemia upper GI bleed alcohol abuse severe dehydration. (Electronically signed by London Camacho Dr. 11/09/2016 11:47)
--- NOTE | 2016-11-09 11:47 | ED MAR SUMMARY ---
..... Medication Administration Record [facility] [address] [place] [address] Patient: SURENDRA COVARRUBIAS Visit ID: [id number] 56y, M Weight: 68.0 kg Height/Length: 70 in BMI: 21.5 ALLERGIES: NKDA Start 18:57 11/08/2016 Alejandro Cabral R.N., Stop 21:34 11/08/2016 Waleska Narayan R.N. Medication Administered: IV NS (SALINE), Dose: IV Fluids over 1 hour(s), Rate: 1000 mL/hr, Dispensed: 1000 mL bag, Site: #1 right forearm. Medication Ordered: IV NS : initial bolus 2 L, then none - for X1 (NOW). Given 19:15 11/08/2016 Waleska Narayan R.N. Medication Administered: PROTONIX [IVP] (PANTOPRAZOLE SODIUM), Dose: 80 mg IVP over 2 minute(s), Site: #1 right forearm. Medication Ordered: Protonix IVP 80mg 80 mg (Mix in NS 20ml over 4min). Given 19:22 11/08/2016 Waleska Narayan R.N. Medication Administered: ATIVAN [IVP] (LORAZEPAM), Dose: 2 mg IVP over 2 minute(s), Site: #1 right forearm. Medication Ordered: Ativan IV 2 mg (HIGH ALERT MEDICATION, NOW). Start 19:40 11/08/2016 Waleska Narayan R.N., Stop 21:35 11/08/2016 Waleska Narayan R.N. Medication Administered: POTASSIUM CHLORIDE [IVPB] (POTASSIUM CHLORIDE), Dose: 20 meq IVPB over 2 hour(s), Dispensed: 100 mL bag, Site: #1 right forearm. Medication Ordered: Potassium Chloride IV 20 meq/100mL (HIGH ALERT MEDICATION, NOW, Run no faster than 10 mEq/hr).
--- NOTE | 2016-11-09 11:47 | ED MED RECONCILIATION SUMMARY ---
Patient: SURENDRA COVARRUBIAS Medication Reconciliation Report [facility] VisitID: [id number] [address] [place] [address] 56y, M Registration Date/Time: 11/08/2016 Weight: 68.0 kg Height/Length: 70 in. BMI: 21.5 ALLERGIES: NKDA The patient's Home Medications are listed below: THE FOLLOWING MEDICATIONS NEED TO BE RECONCILED: Gabapentin Oral 300 mg, 2x a day PriLOSEC Oral The source(s) of the original Home Medication information: Not obtained. The following Medications were given to the patient in the Emergency Department: IV NS IV Fluids bolus 0, then 1000 mL/hr, administered: 11/08/2016 6:57:00 PM PROTONIX [IVP] IVP 80 mg, administered: 11/08/2016 7:15:00 PM Ativan [IVP] IVP 2 mg, administered: 11/08/2016 7:22:00 PM Potassium Chloride [IVPB] IVPB bolus 0, then 20 meq, administered: 11/08/2016 7:40:00 PM The following Medications were prescribed to the patient: None.
--- NOTE | 2016-11-09 11:47 | ED MAR SUMMARY ---
..... Medication Administration Record [facility] [address] [place] [address] Patient: SURENDRA COVARRUBIAS Visit ID: [id number] 56y, M Weight: 68.0 kg Height/Length: 70 in BMI: 21.5 ALLERGIES: NKDA Start 18:57 11/08/2016 Alejandro Cabral R.N., Stop 21:34 11/08/2016 Waleska Narayan R.N. Medication Administered: IV NS (SALINE), Dose: IV Fluids over 1 hour(s), Rate: 1000 mL/hr, Dispensed: 1000 mL bag, Site: #1 right forearm. Medication Ordered: IV NS : initial bolus 2 L, then none - for X1 (NOW). Given 19:15 11/08/2016 Waleska Narayan R.N. Medication Administered: PROTONIX [IVP] (PANTOPRAZOLE SODIUM), Dose: 80 mg IVP over 2 minute(s), Site: #1 right forearm. Medication Ordered: Protonix IVP 80mg 80 mg (Mix in NS 20ml over 4min). Given 19:22 11/08/2016 Waleska Narayan R.N. Medication Administered: ATIVAN [IVP] (LORAZEPAM), Dose: 2 mg IVP over 2 minute(s), Site: #1 right forearm. Medication Ordered: Ativan IV 2 mg (HIGH ALERT MEDICATION, NOW). Start 19:40 11/08/2016 Waleska Narayan R.N., Stop 21:35 11/08/2016 Waleska Narayan R.N. Medication Administered: POTASSIUM CHLORIDE [IVPB] (POTASSIUM CHLORIDE), Dose: 20 meq IVPB over 2 hour(s), Dispensed: 100 mL bag, Site: #1 right forearm. Medication Ordered: Potassium Chloride IV 20 meq/100mL (HIGH ALERT MEDICATION, NOW, Run no faster than 10 mEq/hr).
--- NOTE | 2016-11-09 11:47 | ED MED RECONCILIATION SUMMARY ---
Patient: SURENDRA COVARRUBIAS Medication Reconciliation Report [facility] VisitID: [id number] [address] [place] [address] 56y, M Registration Date/Time: 11/08/2016 Weight: 68.0 kg Height/Length: 70 in. BMI: 21.5 ALLERGIES: NKDA The patient's Home Medications are listed below: THE FOLLOWING MEDICATIONS NEED TO BE RECONCILED: Gabapentin Oral 300 mg, 2x a day PriLOSEC Oral The source(s) of the original Home Medication information: Not obtained. The following Medications were given to the patient in the Emergency Department: IV NS IV Fluids bolus 0, then 1000 mL/hr, administered: 11/08/2016 6:57:00 PM PROTONIX [IVP] IVP 80 mg, administered: 11/08/2016 7:15:00 PM Ativan [IVP] IVP 2 mg, administered: 11/08/2016 7:22:00 PM Potassium Chloride [IVPB] IVPB bolus 0, then 20 meq, administered: 11/08/2016 7:40:00 PM The following Medications were prescribed to the patient: None.
--- NOTE | 2016-11-09 11:47 | ED DISCHARGE INSTRUCTIONS ---
Patient: SURENDRA COVARRUBIAS General Instructions [facility] VisitID: [id number] [address] [place] [address] 56y, M Registration Date/Time: 11/08/2016 Severe hypokalemia lactic acidemia upper GI bleed alcohol abuse severe dehydration. (Electronically signed by London Camacho Dr. 11/09/2016 11:47)
[2016-11-10] VITALS (22 sets, daily range): BP systolic 97–140; BP diastolic 68–90
--- NOTE | 2016-11-10 06:43 | Progress Note ---
Subjective General Note Date: November 10, 2016 Admission Date: November 08, 2016 Hospital Day: 3 PCP: None Status: Inpatient, CCU Advanced Directive: FULL CODE Room: 303 Admission History: The patient is a 56-year-old white male with a significant past medical history of alcohol abuse/dependence who presented to [facility] emergency department on the day of admission secondary to complaints of hematemesis. [facility] ER evaluation was consistent with acute alcohol intoxication, alcohol dependence/abuse, suspected upper GI bleed, hypokalemia. Secondary to the above, the patient was admitted by Karthik Huggins M.D. for further evaluation and treatment. For other history present illness, past medical history, family history, social history, review of systems, and admission physical examination please see the patient's history and physical examination and ER visit note in the patient's medical record. Subjective: Patient remains confused and missed of alcohol withdrawal syndrome. Require treatment with physical restraints last night and placement on Precedex for agitation control. Status improved with above measures. Patient requests: None Medications and Allergies Medications Current Medications Sig/Francis Start time Last Medication Dose Route Stop Time Status Admin Lorazepam 1 MG Q6H 11/12 0800 AC PO 11/13 0400 Lorazepam 1 MG Q6H 11/12 0800 AC IV 11/13 0400 Lorazepam 1 MG Q6H / 0800 AC PO 11/12 0400 Lorazepam 1 MG Q6H / 0800 AC IV 11/12 0400 Lorazepam 1 MG Q4H / 0800 AC PO / 0600 Lorazepam 1 MG Q4H / 0800 AC IV 11/11 0600 Dexmedetomidine/ 50 ML ASDIRECTED 11/09 2230 AC 11/10 Sodium Chloride IV 0424 Lorazepam See Dose Q1H PRN 11/09 1700 AC 11/09 Insts (1) IV 2222 Multivit/ 1 TAB DAILY 11/09 09 AC 11/09 Folic Acid/Iron PO 0852 Thiamine HCl 100 MG DAILY 11/09 0900 AC 11/09 PO 0852 Pantoprazole Sodium 40 MG PPIBID 11/09 0600 AC 11/10 IV 0616 Ondansetron HCl See Dose Q4H PRN 11/08 2300 AC 11/09 Insts (2) IV 1940 Promethazine HCl See Dose Q4H PRN 11/08 2300 AC 11/09 Insts (3) IV 2147 Acetaminophen 650 MG Q6H PRN 11/08 2144 AC 11/09 PO 0354 Sodium Chloride/ 1,000 ML ASDIRECTED 11/08 2144 11/09 Electrolytes IV 2146 Dose Instructions: (1)Lorazepam: 1 - 2 MG (2)Ondansetron HCl: 4 - 8 MG (3)Promethazine HCl: 12.5 - 25 MG Allergies Coded Allergies: No Known Drug Allergy (11/09/16) Physical Exam Vital Signs / I&Os Vital Signs Date Time Temp Pulse Resp B/P Pulse O2 O2 Flow FiO2 Ox Delivery Rate 11/10 0413 79 14 111/68 90 11/10 0300 87 17 118/87 95 Nasal 3.0 Cannula / 0245 89 24 94 3.0 / 0207 75 16 97/73 95 Nasal 3.0 Cannula / 0111 79 16 102/73 95 / 0024 86 13 105/74 94 Nasal 3.0 Cannula / 2341 96 19 11/09 2320 119 28 93 3.0 / 2200 98.2 158/79 06/ 2103 98.2 104 20 133/82 94 Nasal 3.0 Cannula /2000 97.9 103 16 120/73 92 Nasal 3.0 Cannula 11/09 1942 Nasal 2.0 Cannula / 1941 99 22 100 2.0 06/03 1902 98.1 90 14 123/77 96 Nasal 3.0 Cannula /03 1805 98.2 93 17 123/80 95 Nasal 3.0 Cannula / 1737 97.9 89 17 131/84 94 Nasal 3.0 Cannula 06/03 1436 98.6 95 16 127/85 93 Nasal 2.0 Cannula 06/03 1300 82 15 96 2.0 06/03 1045 98.6 91 18 129/78 95 Nasal 2.0 Cannula 06/03 0742 2.0 06/03 0655 98.8 101 18 120/81 94 Nasal 2.0 Cannula I&O /04 0000 03 1600 11/09 0800 Intake Total 5339 825 6696 Output Total 1425 1600 250 Balance 259 -880 1415 General Appearance Alert, Oriented X3, Cooperative, No acute distress Lungs Clear to auscultation Cardiovascular Regular rate and rhythm, Normal S1 and S2 Abdomen Normal bowel sounds, Soft, No tenderness Extremities No cyanosis, No clubbing Neurological Cranial nerves intact, No lateralizing signs, confused Psych/Mental Status Confused, intermittently agitated LAB Results Laboratory Tests 11/10 11/09 11/09 0514 1601 0900 Chemistry Plasma Sodium (136 - 145 mmol/L) 139 135 Plasma Potassium (3.5 - 5.1 mmol/L) 3.9 3.7 Plasma Chloride (98 - 107 mmol/L) 104 100 CO2 (Enzymatic) (21 - 32 mmol/L) 24 28 BUN (7 - 18 mg/dL) 8 8 Creatinine (0.6 - 1.3 mg/dL) 0.6 0.7 Est GFR ( Amer) (mL/min) >60 >60 Est GFR (Non-Af Amer) (mL/min) >60 >60 Glucose (70 - 110 mg/dL) 87 113 Lactic Acid (0.4 - 2.0 mmol/L) 0.8 Plasma Calcium (8.5 - 10.1 mg/dL) 8.6 8.1 Plasma Magnesium (1.8 - 2.4 mg/dL) 1.7 Total Bilirubin (0.0 - 1.0 mg/dL) 1.5 AST (15 - 37 U/L) 44 ALT (12 - 78 U/L) 35 Alkaline Phosphatase (46 - 116 U/L) 129 Total Protein (6.4 - 8.2 g/dL) 6.2 Albumin (3.3 - 5.0 g/dL) 3.2 Hematology WBC (4.5 - 11.5 K/uL) 10.5 RBC (4.50 - 5.90 M/uL) 4.53 Hgb (13.5 - 17.5 gm/dL) 14.9 13.8 Hct (41.0 - 53.0 %) 43.6 40.5 MCV (80 - 100 fL) 96 MCH (26 - 34 pg) 33 RDW (11.6 - 14.8 %) 14.5 Neut % (Auto) (50 - 75 %) 75.1 Lymph % (Auto) (25 - 40 %) 10.5 [place] % (Auto) (3 - 14 %) 10.7 Eos % (Auto) (0 - 4 %) 3.4 Baso % (Auto) (0 - 2 %) 0.3 Plt Count, EDTA (150 - 400 K/uL) 129 PUBS MCHC (31 - 37 g/dL) 34 Assessment and Plan Problem List 1. Alcohol withdrawal syndrome Status Acute Onset Date Unknown Plan -Patient exhibiting signs of alcohol withdrawal syndrome -Alcohol withdrawal protocol -Transference to ICU with Precedex infusion required yesterday -Patient remains confused but less agitated on current therapy -Continue alcohol withdrawal protocol 2. Alcohol dependence Status Chronic Onset Date Unknown Plan -See above -Patient with heavy alcohol consumption prior to admission -Encourage enrollment in alcohol treatment program post discharge -Discharge planning to work with patient regarding placement in treatment program 3. GI bleed Plan -Patient presented with history of hematemesis -H&H stable -No active bleeding identified -PPI therapy with Protonix 40 mg IV twice a day -Upper endoscopy prior to discharge or with a recurrent upper GI bleeding -Monitor 4. Hypomagnesemia Plan -Patient with findings of hypomagnesemia -Magnesium level low at 1.7 -IV/by mouth magnesium supplementation -Recheck in a.m. 5. Hypokalemia Plan -Patient with findings of hypokalemia -Patient status post IV treatment -A.m. potassium 3.9 -Monitor, recheck in a.m. Current status: Critical, unstable Anticipated discharge date: Anticipated discharge in 3-4 days Anticipated discharge placement: Home Patient care time: Time in chart review, patient interview, physical exam, CPOE, and care documentation: 35 mins Visit to patient today: 2 Complexity of care: High DVT prophylaxis: SCD E&M Codes Rounding: Inpt-High/[id number]
[2016-11-11] VITALS (23 sets, daily range): BP systolic 94–136; BP diastolic 62–88
--- NOTE | 2016-11-11 16:15 | Progress Note ---
Subjective Constitutional Other (patient to sedated to communic). Physical Exam Vital Signs / I&Os Vital Signs Date Time Temp Pulse Resp B/P Pulse O2 O2 Flow FiO2 Ox Delivery Rate 11/15 1058 97.9 90 19 91/54 93 Room Air 11/15 0641 97.7 83 20 130/71 93 Room Air 11/15 0209 98.6 86 16 119/72 94 Room Air 11/14 2223 98.4 90 18 107/62 94 Room Air 11/14 2053 98.1 100 16 109/75 95 08 1958 Room Air I&O 11/14 0800 11/14 1600 11/15 0000 Intake Total 8981 981 0302 Output Total 9850 222 3987 Balance 411 315 532 General Appearance No acute distress HEENT Atraumatic, PERRLA, Moist mucous membranes Lungs Clear to auscultation Neck Supple, No JVD Cardiovascular Regular rate and rhythm, No murmurs, gallops, rubs Abdomen Soft, No tenderness, No guarding Extremities No edema, Normal pulses Skin No Breakdown, No Significant Lesions Neurological Normal tone, Sensation intact, Cranial nerves intact, No lateralizing signs Psych/Mental Status Mood normal Assessment and Plan Problem List 1. Alcohol withdrawal syndrome Status Acute Onset Date Unknown Plan Patient is currently still withdrawal We'll continue with Precedex drip Ativan when necessary for seizure prophylaxis and tremors We'll continue with diet as tolerated We'll DC once patient is mentating normally and without anxiety and tremors
--- NOTE | 2016-11-11 16:15 | Progress Note ---
Subjective Constitutional Other (patient to sedated to communic). Physical Exam Vital Signs / I&Os Vital Signs Date Time Temp Pulse Resp B/P Pulse O2 O2 Flow FiO2 Ox Delivery Rate 11/15 1058 97.9 90 19 91/54 93 Room Air 11/15 0641 97.7 83 20 130/71 93 Room Air 11/15 0209 98.6 86 16 119/72 94 Room Air 11/14 2223 98.4 90 18 107/62 94 Room Air 11/14 2053 98.1 100 16 109/75 95 08 1958 Room Air I&O 11/14 0800 11/14 1600 11/15 0000 Intake Total 1390 137 3321 Output Total 9347 129 0755 Balance 411 315 532 General Appearance No acute distress HEENT Atraumatic, PERRLA, Moist mucous membranes Lungs Clear to auscultation Neck Supple, No JVD Cardiovascular Regular rate and rhythm, No murmurs, gallops, rubs Abdomen Soft, No tenderness, No guarding Extremities No edema, Normal pulses Skin No Breakdown, No Significant Lesions Neurological Normal tone, Sensation intact, Cranial nerves intact, No lateralizing signs Psych/Mental Status Mood normal Assessment and Plan Problem List 1. Alcohol withdrawal syndrome Status Acute Onset Date Unknown Plan Patient is currently still withdrawal We'll continue with Precedex drip Ativan when necessary for seizure prophylaxis and tremors We'll continue with diet as tolerated We'll DC once patient is mentating normally and without anxiety and tremors
[2016-11-12] VITALS (16 sets, daily range): BP systolic 110–139; BP diastolic 76–99
--- NOTE | 2016-11-12 15:11 | Progress Note ---
Subjective General Patient seen and examined this morning. Patient is much improved. Patient no longer has hallucinations or is persistently agitated. Patient still has tremors. Patient is able to tolerate a diet. Constitutional Denies: Fever, Chills, Sweats, Weakness, Malaise, Other. Eyes Denies: Pain, Vision Change, Conjunctival Inflammation, Eyelid Inflammation, Redness, Other. Respiratory Denies: Cough, Dry, SOB w/exertion, Wheezing, Hemoptysis, Pleuritic Pain, Sputum , Other. Gastrointestinal Denies: Nausea, Vomiting, Abdominal Pain, Diarrhea, Constipation, Melena, Hematochezia, Other. Genitourinary Denies: Dysuria, Frequency, Incontinence, Hematuria, Retention, Other. Musculoskeletal Denies: Neck Pain, Shoulder Pain, Arm Pain, Back Pain, Hand Pain, Leg Pain, Foot Pain, Other. Skin Denies: Rash, Lesions, Jaundice, Bruising, Other. Neurological Confusion. Denies: Weakness, Numbness, Incoordination, Change in speech, Seizures, Other. Physical Exam Vital Signs / I&Os Vital Signs Date Time Temp Pulse Resp B/P Pulse O2 O2 Flow FiO2 Ox Delivery Rate 11/12 1322 84 18 118/76 100 Room Air 06/06 1200 108 20 133/99 100 Room Air 06/06 1121 98.4 70 18 111/79 100 Room Air 06/06 1036 97.9 87 20 135/80 97 Room Air 06/06 0800 83 20 118/81 97 Room Air 06/06 0722 98.1 70 20 124/80 97 Room Air 06/06 0613 97.5 77 16 127/94 97 Room Air 0.0 06/06 0517 71 16 119/86 97 Room Air 0.0 06/06 0414 67 16 129/86 97 Room Air 0.0 06/06 0315 71 16 139/92 97 Room Air 0.0 06/06 0209 68 16 132/90 96 Room Air 0.0 06/06 0100 75 16 135/90 98 Room Air 0.0 06/06 0011 73 16 118/77 97 Room Air 0.0 06/05 2313 74 16 106/85 99 Room Air 0.0 06/05 2236 98.4 06/05 2203 81 16 124/80 95 06/05 2117 75 16 116/75 96 /05 2010 78 16 111/73 95 06/05 1954 Room Air 11/11 1913 96 16 121/83 11/11 1819 97.7 92 16 122/73 11/11 1713 85 16 108/83 11/11 1623 77 16 12083 I&O 11/11 0800 11/11 1600 11/12 0000 Intake Total 1626 1740 1292 Output Total 1200 1850 1525 Balance 426 -110 -233 General Appearance Alert, Oriented X3, No acute distress HEENT Atraumatic, Moist mucous membranes Lungs Clear to auscultation Neck No JVD Cardiovascular Regular rate and rhythm, Normal S1 and S2, No murmurs, gallops, rubs Abdomen Soft, No tenderness Extremities No clubbing, No edema, Normal pulses Skin No Breakdown Neurological Normal speech, Sensation intact, Cranial nerves intact, No lateralizing signs Psych/Mental Status Mood normal LAB Results Laboratory Tests 11/12 0435 Chemistry Plasma Sodium (136 - 145 mmol/L) 133 Plasma Potassium (3.5 - 5.1 mmol/L) 4.1 Plasma Chloride (98 - 107 mmol/L) 101 CO2 (Enzymatic) (21 - 32 mmol/L) 22 BUN (7 - 18 mg/dL) 11 Creatinine (0.6 - 1.3 mg/dL) 0.6 Est GFR ( Amer) (mL/min) >60 Est GFR (Non-Af Amer) (mL/min) >60 Glucose (70 - 110 mg/dL) 100 Plasma Calcium (8.5 - 10.1 mg/dL) 8.1 Total Bilirubin (0.0 - 1.0 mg/dL) 0.7 AST (15 - 37 U/L) 31 ALT (12 - 78 U/L) 35 Alkaline Phosphatase (46 - 116 U/L) 117 Total Protein (6.4 - 8.2 g/dL) 6.1 Albumin (3.3 - 5.0 g/dL) 3.0 Assessment and Plan Problem List 1. Alcohol withdrawal syndrome Status Acute Onset Date Unknown Plan Patient has been diagnosis of alcoholic role Patient currently stable and not exhibiting any withdrawal symptoms We'll titrate down Precedex drip Will resume diet and monitor patient for any sort of other withdrawal signs We'll continue with Ativan for the time being for seizure prophylaxis 2. Lactic acid acidosis Plan Resolved 3. GI bleed Plan Patient on admission complained of GI bleed No evidence of bleeding while inpatient We'll continue to trend CBC and we'll discharge
[2016-11-13 01:32] VITALS: BP 132/88
[2016-11-13 05:53] VITALS: BP 125/84
[2016-11-13 10:09] VITALS: BP 123/83
[2016-11-13 14:26] VITALS: BP 114/70
--- NOTE | 2016-11-13 15:35 | Progress Note ---
Subjective General Patient seen and examined patient has no acute events overnight. Patient is off Precedex drip and only requiring when necessary Ativan We'll consider possible discharge tomorrow Constitutional Denies: Fever, Chills, Sweats, Weakness, Malaise, Other. Eyes Denies: Pain, Vision Change, Conjunctival Inflammation, Eyelid Inflammation, Redness, Other. Respiratory Denies: Cough, Dry, SOB w/exertion, Wheezing, Hemoptysis, Pleuritic Pain, Sputum , Other. Cardiovascular Denies: Chest Pain, Palpitations, Orthopnea, PND, Edema, Light-headedness, Other. Genitourinary Denies: Dysuria, Frequency, Incontinence, Hematuria, Retention, Other. Musculoskeletal Denies: Neck Pain, Shoulder Pain, Arm Pain, Back Pain, Hand Pain, Leg Pain, Foot Pain, Other. Skin Denies: Rash, Lesions, Jaundice, Bruising, Other. Physical Exam Vital Signs / I&Os Vital Signs Date Time Temp Pulse Resp B/P Pulse O2 O2 Flow FiO2 Ox Delivery Rate 11/13 1426 98.2 93 16 114/70 97 11/13 1009 98.4 102 18 123/83 96 Room Air / 0853 96 / 0636 98.2 / 0553 93 20 125/84 96 Room Air / 0132 98.4 94 20 132/88 97 Room Air / 2229 99.0 111 18 125/80 96 Room Air /06 2044 Room Air / 1827 98.4 110 18 110/77 95 06/06 1638 104 121/82 I&O 11/12 0800 /06 1600 /07 0000 Intake Total 1119 818 2872 Output Total 1450 1700 1550 Balance 99 -721 639 General Appearance Alert, Oriented X3, No acute distress HEENT Atraumatic, PERRLA, Moist mucous membranes Lungs Clear to auscultation Neck Supple, No JVD, No masses Cardiovascular Regular rate and rhythm, No murmurs, gallops, rubs Abdomen Soft, No tenderness Extremities No edema, Normal pulses Skin No Breakdown Neurological Normal speech, Normal tone, Cranial nerves intact, No lateralizing signs Psych/Mental Status Mood normal Assessment and Plan Problem List 1. Alcohol withdrawal syndrome Status Acute Onset Date Unknown Plan Patient on the tail end of his alcohol withdrawal stay Patient currently off Precedex and receiving Ativan when necessary Currently patient is stable We'll consider discharge tomorrow 2. GI bleed Plan Patient initially presented claiming he had a GI bleed No evidence of bleeding was noted throughout its entire hospital stay Patient has not even become anemic secondary to any sort of etiology We'll not consider endoscopic evaluation for the time being
[2016-11-13 18:14] VITALS: BP 128/83
[2016-11-13 21:34] VITALS: BP 102/82
[2016-11-14 01:10] VITALS: BP 127/78
[2016-11-14 06:31] VITALS: BP 127/80
[2016-11-14 11:10] VITALS: BP 111/68
[2016-11-14 14:39] VITALS: BP 113/79
--- NOTE | 2016-11-14 16:14 | Progress Note ---
Subjective General Patient seen and examined. Patient is doing much better. Patient has momentary periods of agitation and tremors. Patient is still receiving when necessary Ativan to combat this Constitutional Chills, Sweats. Denies: Fever, Weakness, Malaise, Other. Eyes Denies: Pain, Vision Change, Conjunctival Inflammation, Eyelid Inflammation, Redness, Other. ENT Denies: Ear Pain, Ear Discharge, Nose Pain, Nasal Discharge, Nasal Congestion, Mouth Pain, Mouth Swelling, Throat Pain, Throat Swelling, Other. Respiratory Denies: Cough, Dry, SOB w/exertion, Wheezing, Hemoptysis, Pleuritic Pain, Sputum , Other. Cardiovascular Denies: Chest Pain, Palpitations, Orthopnea, PND, Edema, Light-headedness, Other. Gastrointestinal Denies: Nausea, Vomiting, Abdominal Pain, Diarrhea, Constipation, Melena, Hematochezia, Other. Genitourinary Denies: Dysuria, Frequency, Incontinence, Hematuria, Retention, Other. Musculoskeletal Denies: Neck Pain, Shoulder Pain, Arm Pain, Back Pain, Hand Pain, Leg Pain, Foot Pain, Other. Skin Denies: Rash, Lesions, Jaundice, Bruising, Other. Neurological Denies: Weakness, Numbness, Incoordination, Change in speech, Confusion, Seizures, Other. Physical Exam Vital Signs / I&Os Vital Signs Date Time Temp Pulse Resp B/P Pulse O2 O2 Flow FiO2 Ox Delivery Rate 11/14 1439 98.1 88 16 113/79 95 /08 1110 97.9 80 19 111/68 95 Room Air 08 0745 Room Air 11/14 0631 97.9 82 20 127/80 97 Room Air / 0110 97.7 82 18 127/78 98 Room Air 0.0 11/13 2134 98.6 90 16 102/82 95 /07 1957 Room Air 06/ 1814 98.6 118 16 128/83 97 I&O 11/13 0800 11/13 1600 11/14 0000 Intake Total 2024 1410 1847 Output Total 9610 391 1030 Balance 500 960 -353 General Appearance Alert, Oriented X3, No acute distress HEENT Atraumatic, PERRLA, Moist mucous membranes Lungs Clear to auscultation Neck Supple, No JVD, No thyromegaly Cardiovascular Regular rate and rhythm, No murmurs, gallops, rubs Abdomen Soft, No tenderness, No masses Extremities No edema, Normal pulses, No tenderness Skin No Breakdown, No Significant Lesions Neurological Normal speech, Sensation intact, Cranial nerves intact Psych/Mental Status Mood normal Assessment and Plan Problem List 1. Alcohol withdrawal syndrome Status Acute Onset Date Unknown Plan Currently patient is a metallic end of his alcohol withdrawal stay Currently patient is receiving when necessary Ativan for anxiety We'll monitor patient and provide benzodiazepines as necessary Most likely discharge tomorrow 2. Alcohol dependence Status Chronic Onset Date Unknown Plan Patient has a long-standing history of alcohol dependence Patient already replaced with thiamine and folate We'll monitor for any other consequences of binge drinking 3. Lactic acid acidosis Plan Resolved
[2016-11-14 20:53] VITALS: BP 109/75
[2016-11-14 22:23] VITALS: BP 107/62
[2016-11-15 02:09] VITALS: BP 119/72
[2016-11-15 06:41] VITALS: BP 130/71
[2016-11-15 10:58] VITALS: BP 91/54
--- NOTE | 2016-11-15 16:53 | Progress Note ---
Subjective General Patient seen and examined. Patient is doing well and off the Precedex drip. Patient still is having anxiety and tremors. Constitutional Sweats, Weakness. Denies: Fever, Chills, Malaise, Other. ENT Denies: Ear Pain, Ear Discharge, Nose Pain, Nasal Discharge, Nasal Congestion, Mouth Pain, Mouth Swelling, Throat Pain, Throat Swelling, Other. Respiratory Denies: Cough, Dry, SOB w/exertion, Wheezing, Hemoptysis, Pleuritic Pain, Sputum , Other. Cardiovascular Denies: Chest Pain, Palpitations, Orthopnea, PND, Edema, Light-headedness, Other. Gastrointestinal Denies: Nausea, Vomiting, Abdominal Pain, Diarrhea, Constipation, Melena, Hematochezia, Other. Genitourinary Denies: Dysuria, Frequency, Incontinence, Hematuria, Retention, Other. Musculoskeletal Denies: Neck Pain, Shoulder Pain, Arm Pain, Back Pain, Hand Pain, Leg Pain, Foot Pain, Other. Neurological Confusion. Physical Exam Vital Signs / I&Os Vital Signs Date Time Temp Pulse Resp B/P Pulse O2 O2 Flow FiO2 Ox Delivery Rate 11/15 1058 97.9 90 19 91/54 93 Room Air 11/15 0641 97.7 83 20 130/71 93 Room Air 11/15 0209 98.6 86 16 119/72 94 Room Air 11/14 2223 98.4 90 18 107/62 94 Room Air 11/14 2053 98.1 100 16 109/75 95 06/08 1958 Room Air I&O 11/14 0800 06/08 1600 06/09 0000 Intake Total 7563 845 1189 Output Total 0392 323 5748 Balance 411 315 532 General Appearance Alert, No acute distress HEENT Atraumatic, EOMI, Moist mucous membranes Lungs Clear to auscultation Neck Supple, No JVD Cardiovascular Regular rate and rhythm, No murmurs, gallops, rubs Abdomen Soft, No tenderness Extremities No clubbing, No edema, Normal pulses Skin No Breakdown Neurological Normal tone, Cranial nerves intact, No lateralizing signs, - tremors are still present - pt is still having baseline anxiety Psych/Mental Status Mood normal Assessment and Plan Problem List 1. Alcohol withdrawal syndrome Status Acute Onset Date Unknown Plan Patient is still having anxiety and tremors Patient will require when necessary Ativan We'll continue to monitor for worsening withdrawal symptoms Patient continues in the current trajectory patient will possibly be discharged tomorrow
--- NOTE | 2016-11-15 16:53 | Progress Note ---
Subjective General Patient seen and examined. Patient is doing well and off the Precedex drip. Patient still is having anxiety and tremors. Constitutional Sweats, Weakness. Denies: Fever, Chills, Malaise, Other. ENT Denies: Ear Pain, Ear Discharge, Nose Pain, Nasal Discharge, Nasal Congestion, Mouth Pain, Mouth Swelling, Throat Pain, Throat Swelling, Other. Respiratory Denies: Cough, Dry, SOB w/exertion, Wheezing, Hemoptysis, Pleuritic Pain, Sputum , Other. Cardiovascular Denies: Chest Pain, Palpitations, Orthopnea, PND, Edema, Light-headedness, Other. Gastrointestinal Denies: Nausea, Vomiting, Abdominal Pain, Diarrhea, Constipation, Melena, Hematochezia, Other. Genitourinary Denies: Dysuria, Frequency, Incontinence, Hematuria, Retention, Other. Musculoskeletal Denies: Neck Pain, Shoulder Pain, Arm Pain, Back Pain, Hand Pain, Leg Pain, Foot Pain, Other. Neurological Confusion. Physical Exam Vital Signs / I&Os Vital Signs Date Time Temp Pulse Resp B/P Pulse O2 O2 Flow FiO2 Ox Delivery Rate 11/15 1058 97.9 90 19 91/54 93 Room Air 11/15 0641 97.7 83 20 130/71 93 Room Air 11/15 0209 98.6 86 16 119/72 94 Room Air 11/14 2223 98.4 90 18 107/62 94 Room Air 11/14 2053 98.1 100 16 109/75 95 06/08 1958 Room Air I&O 11/14 0800 06/08 1600 06/09 0000 Intake Total 7473 045 8400 Output Total 5781 763 3463 Balance 411 315 532 General Appearance Alert, No acute distress HEENT Atraumatic, EOMI, Moist mucous membranes Lungs Clear to auscultation Neck Supple, No JVD Cardiovascular Regular rate and rhythm, No murmurs, gallops, rubs Abdomen Soft, No tenderness Extremities No clubbing, No edema, Normal pulses Skin No Breakdown Neurological Normal tone, Cranial nerves intact, No lateralizing signs, - tremors are still present - pt is still having baseline anxiety Psych/Mental Status Mood normal Assessment and Plan Problem List 1. Alcohol withdrawal syndrome Status Acute Onset Date Unknown Plan Patient is still having anxiety and tremors Patient will require when necessary Ativan We'll continue to monitor for worsening withdrawal symptoms Patient continues in the current trajectory patient will possibly be discharged tomorrow
[2016-11-15 17:27] VITALS: BP 114/68
[2016-11-15 19:06] VITALS: BP 109/70
[2016-11-15 22:31] VITALS: BP 114/84
[2016-11-16 02:41] VITALS: BP 114/69
[2016-11-16] MEDS ORDERED: THIAMINE HCL100 MG PO (06:09)
[2016-11-16] MEDS ORDERED: CLONIDINE HCL0.1 MG PO (06:09)
[2016-11-16] MEDS ORDERED: FOLIC ACID1 MG PO (06:09)
[2016-11-16] MEDS ORDERED: MAG6464 MG PO (06:09)
[2016-11-16] MEDS ORDERED: ATIVAN1 MG PO (06:09)
--- NOTE | 2016-11-16 07:19 | DISCHARGE SUMMARY ---
ADMIT DATE: 11/08/2016 DISCHARGE DATE: 11/16/2016 DISCHARGE DIAGNOSES: 1. Alcohol withdrawal syndrome. 2. Alcohol induced gastritis. 3. Hypokalemia. BRIEF HISTORY: This is a 56-year-old white male who was admitted on 11/08/2016, and presented with a history of vomiting for last 5 days before the admission and there was blood in the vomitus. The patient also acknowledged that he drank excessive amount of alcohol with hard liquor 1 day before the admission, actually but he was drinking that heavily for the last month before the admission. The patient came to the hospital while intoxicated, was retching and vomited a few times, which there was no blood in the vomitus per ER lab check. HOSPITAL COURSE: The patient was admitted and was put on alcohol withdrawal protocol and hemoglobin was monitored. There was no drop and there was no blood in the vomitus in the ER check but the patient had a hard time going through alcohol withdrawal and it took a few days with a high-dose Ativan and also thiamine and folic acid. The patient also required clonidine to add, at one point the patient went on a Precedex drip to get the withdrawal symptom under control but we were able to wean him off the Precedex drip and get him on the Ativan. The patient finally started to improve. Right now, the patient is doing much better, alert and oriented and comfortable. Complains of a little bit of anxiety, but able to sleep and drink and ambulate fine and ready to be discharged. PHYSICAL EXAMINATION: VITAL SIGNS: Temperature is 98.2, pulse is 75, respirations 18, blood pressure 114/69, pulse oximetry 95% on room air. LUNGS: Clear to auscultation. No rhonchi or wheezing or crackles. HEART: Regular S1 and S2. No murmur. No S3. ABDOMEN: Soft, nontender. Bowel sounds are positive. EXTREMITIES: No edema. DISCHARGE INSTRUCTIONS/MEDICATIONS: Disposition: The patient will be discharged home to follow up with his primary care physician as an outpatient within 1 week. Discharge medications: 1. Ativan 1 mg 3 times a day. We will give 45. 2. Also will continue on thiamine 100 mg daily and folic acid 2 mg daily. 3. Clonidine 0.2 mg twice a day. 4. The patient also will be on magnesium 525 three times a day. 5. Hypokalemia resolved during the hospital course. No need for more potassium supplement. I had a discussion with the patient about alcohol abstinence. The patient states that he has a good support and he has also a group in [facility] in [place] that he is going to attend and has got a good friend and social support to help him not to go back to alcohol drinking again.
[2016-11-16 08:36] VITALS: BP 98/53
== END 2016-11-16 09:23 | disposition home or self-care (01) | DRG 241 ==
LOC: ED SRH 17:59 → TRANS SRH 20:44 → ACUTE2 SRH 22:32 → CC SRH 22:33 → ACUTE2 SRH 11-09 11:33 → CC SRH 11-09 17:25 → ACUTE3 SRH 11-11 18:14 → CC SRH 11-11 18:14
PROVIDERS: ADMIT Internal Medicine
DX: K29.20 Alcoholic gastritis without bleeding (principal); F10.230 Alcohol dependence with withdrawal, uncomplicated; E87.6 Hypokalemia; E87.2 Acidosis
CPT/HCPCS: 90001; 90004; 90047; 90074; 90098; 90100; 90155; 91004; 91162; 91163; 92010; 92031; 92235; 92720; 92750; 92760; 92761; 92762; 92763; 92764; 92765; 92766; 92767; 94001; 94060; 95059

== ENCOUNTER → 2016-11-23 | Emergency (ER) | payer OTHER ==
[~2016-11-23] MED LIST changes: +ATIVAN1 MG PO; +CLONIDINE HCL0.1 MG PO; +FOLIC ACID1 MG PO; +MAG6464 MG PO; +NEURONTIN300 MG PO; +PRILOSEC20 MG PO; +THIAMINE HCL100 MG PO
--- NOTE | 2016-11-23 19:37 | DIAGNOSTIC IMAGING REPORT ---
PROCEDURE: CT HEAD WITHOUT CONTRAST INDICATION: TRAUMA/INJURY TECHNIQUE: Axial CT images were acquired through the head. Coronal and sagittal reformations were created. The patient was scanned twice, approximately an hour 15 minutes apart. The first scan was due to motion. COMPARISON: None. FINDINGS: No intracranial hemorrhage or extraaxial fluid collections. Ventricles are normal in size, shape and position. There is no mass, mass effect or midline shift. The nixon-white matter differentiation is normal. There is no edema. Mild intracranial internal carotid atherosclerosis. The calvarium is intact. The paranasal sinuses and mastoid air cells are normally aerated. Mild left supraorbital skin thickening. The extracranial soft tissues and orbits are otherwise normal. IMPRESSION: 1. No CT evidence of acute intracranial process. 2. Findings discussed with Dr. Yarbrough at [address] scans at this facility use dose modulation, iterative reconstruction, and/or weight-based dosing when appropriate to reduce radiation dose to as low as reasonably achievable.
--- NOTE | 2016-11-23 19:37 | DIAGNOSTIC IMAGING REPORT ---
PROCEDURE: CT CERVICAL SPINE W/O CONTRAST INDICATION: TRAUMA/INJURY TECHNIQUE: Axial CT images were obtained through the cervical spine. Coronal and sagittal reformations were created. No comparison. COMPARISON: None. FINDINGS: The craniocervical junction is intact. 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 Mild anterior and posterior endplate spurring at C3-4 and C4-5. There is dystrophic calcification in the dorsal soft tissues at the C4-5 level. Mild degenerative spurring at the atlantodental interval. Facet arthropathy on the left at C4-5 causing moderate left bony foraminal narrowing. Mid cervical spine pedicles are congenitally short. Mild posterior disc osteophyte complex at C3-4 causing mild central canal narrowing. Disc osteophyte complex at C4-5 with probably a moderate central canal narrowing. No acute fractures. Normal alignment. Intact craniocervical junction. No suspicious prevertebral soft tissue swelling. Patent airway. Normal lung apices. Air filled esophagus. IMPRESSION: 1. Intact cervical spine without CT evidence of acute trauma. 2. Mild degenerative changes, congenitally short pedicles, and facet arthropathy cause mild to moderate central canal narrowing at C3-4 and C4-5, and moderate left foraminal narrowing at C4-5. 3. 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 4. Discussed with Dr. Yarbrough in the emergency room. All CT scans at this facility use dose modulation, iterative reconstruction, and/or weight-based dosing when appropriate to reduce radiation dose to as low as reasonably achievable.
--- NOTE | 2016-11-23 19:40 | DIAGNOSTIC IMAGING REPORT ---
PROCEDURE: ABDOMEN/PELVIS WITH CONTRAST CLINICAL INDICATION: ABDOMINAL PAIN TECHNIQUE: 125 ml of Isovue 300 were injected intravenously and axial images were obtained of the abdomen and pelvis with sagittal and coronal reformations. COMPARISON: 12/10/2011 FINDINGS: ABDOMEN: Mild to moderate bibasilar atelectasis, right worse than left. Severe distal esophageal mucosal hyperemia and mural edema. Mildly hypodense liver. Distended gallbladder. Normal sized heart. No hiatal hernia. The liver, gallbladder, adrenal glands, kidneys, pancreas and spleen are normal. The abdominal aorta is normal in its course and caliber. Mild atherosclerosis. There are no suspicious calcifications, retroperitoneal adenopathy or masses. The stomach, upper bowel loops, and mesentery are normal. Intact anterior abdominal wall. No free fluid or inflammation. PELVIS: Very distended urinary bladder. The appendix and pelvic small bowel loops are normal. Normal amount of stool in the colon and rectum. The prostate gland, seminal vesicles, and pelvic vessels are normal. No adenopathy, free fluid, or pelvic mass. Healing right 11th rib fracture. Status post left femoral maris placement. Sacralization of the L5 transverse processes. Well-circumscribed 19 mm cyst in the left ilium adjacent to the sacroiliac joint, stable. IMPRESSION: 1. No evidence of acute injury. 2. Mild hepatic steatosis, chronic. 3. Very distended urinary bladder. 4. Severe distal esophageal edema and mucosal hyperemia suggestive of esophagitis, chronic. 5. Findings called to the emergency room. All CT scans at this facility use dose modulation, iterative reconstruction, and/or weight-based dosing when appropriate to reduce radiation dose to as low as reasonably achievable.
--- NOTE | 2016-11-23 19:48 | DIAGNOSTIC IMAGING REPORT ---
PROCEDURE: XR CHEST 1 VIEW INDICATION: FALL TECHNIQUE: Single view chest. 1907 hours COMPARISON: 04/27/2012 FINDINGS: Normal cardiomediastinal contour and central vessels. Right lung base atelectatic changes. Left lung is clear. No effusion or pneumothorax. Intact osseous structures. IMPRESSION: 1. Right lung base atelectasis. 2. Otherwise normal chest.
--- NOTE | 2016-11-23 20:34 | ED NURSING NOTES ---
Clinical Report - Nurses [place] [address] [place] [address] 11/23/2016 16:32 Patient: MAREN COVARRUBIAS TRIAGE Acuity: LEVEL 3. Chief Complaint: FALL while standing, onto a hard surface; slipped. Alert. No acute distress. AGNES COMA SCORE: Agnes Coma Scale: 15- eyes open spontaneously (4); best verbal response- oriented x 4 (5); best motor response- obeys commands (6). --16:52 Marya Jones R.N. 16:36 11/23/16. BP: 120/80. HR: 120. RR: 23. O2 saturation: 98%. Temp: 97.8 F (oral). Pain level now: 03/18. --16:52 Marya Jones R.N. 16:36 11/23/16. BP: 120/80. HR: 120. RR: 23. O2 saturation: 98%. Temp: 97.8 F (oral). Pain level now: 03/18. --16:52 Marya Jones R.N. Weight: 70.3 kg stated. Height/Length: 65 inches Per Patient. BMI: 25.8. --16:48 Marya Jones R.N. Medications Gabapentin Oral 300 mg, 2x a day. PriLOSEC Oral. --16:44 Marya Jones R.N. Medication/allergy information source: the patient. --16:52 Marya Jones R.N. Allergies NKDA. --16:44 Marya Jones R.N. History Arrived by EMS. Historian: patient. No primary care physician. This occurred just prior to arrival. The patient had brief loss of consciousness but remembers the trip to the hospital. He has had neck pain and trouble walking. Trauma activation: Pre-hospital notification of patient arrival was not received. 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 See EMS report. Forrest c-collar applied. Upon arrival patient awake. PAST MEDICAL HX: Tetanus status: unknown. SOCIAL HX: Light tobacco smoker (cigarette)- less than 1/2 a pack per day. Alcohol use; consumes liquor daily. Patient is a longstanding alcoholic. FALL RISK ASSESSMENT: Fall risk assessment completed. No fall risk identified. NUTRITIONAL RISK ASSESSMENT: The nutritional risk assessment revealed no deficiencies. FUNCTIONAL ASSESSMENT: Functional assessment: no impairments noted. LEARNING NEEDS ASSESSMENT: The learning needs assessment revealed no barriers. SKIN INTEGRITY ASSESSMENT: Skin integrity risk assessment completed. No skin integrity risk identified. --16:52 Marya Jones R.N. PROBLEMS: Hypertension. Alcoholism. Abdominal Pain. Alcohol abuse. Suicidal Ideation. ETOH. COPD - Chronic Obstructive Pulmonary Disease. Seizure. Stomach Ulcers. Lifestyle / Substance Problems. Gastritis. Bipolar Disorder. Substance Abuse. Alcohol Intoxication. Sinus Tachycardia. Alcohol Withdrawal. Hypokalemia. --16:48 Marya Jones R.N. ADDITIONAL SURGERIES: Endoscopy. Eye surgery. Gastric surgery. Leg surgery. --16:48 Marya Jones R.N. Interventions ID band on patient. To room. --16:52 Marya Jones R.N. PHYSICAL ASSESSMENT To room via stretcher. Patient gowned. GENERAL / NEURO / PSYCH: Alert. Oriented X 4. Appears in no acute distress. HEENT: Pupils equal, round and reactive to light. Head: tenderness. RESPIRATORY: Respirations not labored. CVS: Capillary refill less than 2 seconds. GI / : Abdomen nontender. EXTREMITIES: Extremities exhibit normal ROM. Neuro-vascular status intact to the extremity. SKIN: Skin is warm and dry. --16:53 Marya Jones R.N. NURSING PROGRESS NOTES C-collar applied (Remains in place). Patient gowned. Two patient identifiers checked. Call light placed in reach. Side rails up x 2. Bed placed in lowest position. Brakes of bed on. Patient ready for evaluation. --16:54 Marya Jones R.N. 16:39 11/23/2016 Site #1 started via IV in the left forearm with an 20g angiocath, with aseptic technique and good blood return; one attempt. Blood drawn: rainbow set. Labeled in the presence of the patient and sent to the lab. Saline lock flushed with 10 mL saline. --16:54 Marya Jones R.N. Patient returned from radiology and CT by stretcher with tech. (not complete, pt unable to cooperate.). --17:18 Marya Jones R.N. EKG time: (1720). EKG was ordered, performed by a tech and shown to the ED physician. --17:25 Lisandra Martins 17:28 11/23/2016 Started bag #1 1000 mL IV Fluids IV NS (Saline); at 1000 mL/hr over 1 hour(s) via site #1 via IV pump. Allergies verified and confirmed 5 rights. IV patency established. IV site checked: no pain, redness, or swelling. IV flushed thoroughly pre- and post-medication administration. Completed per protocol. --17:33 Abraham Hopkins R.N. 17:45 11/23/2016 PROTONIX (Pantoprazole Sodium) IVP 40 mg given over 2 minute(s) via site #1. Allergies verified and confirmed 5 rights. IV patency established. IV site checked: no pain, redness, or swelling. IV flushed thoroughly pre- and post-medication administration. IVP given by RN. --17:45 Abraham Hopkins R.N. 17:49 11/23/2016 Zofran (Ondansetron HCl) IVP 4 mg given over 2 minute(s) via site #1. Allergies verified and confirmed 5 rights. IV patency established. IV site checked: no pain, redness, or swelling. IV flushed thoroughly pre- and post-medication administration. IVP given by RN. --17:49 Abraham Hopkins R.N. 17:59 11/23/2016 IV Fluids IV NS via IV site #1 Rate Changed: bag #1 decreased to 125 mL/hr via IV pump. IV patency established. IV site checked: no pain, redness, or swelling. IV flushed thoroughly. --17:59 Amber Abebe R.N. ( Patient found standing at the end of the bed. Had taken off his EKG leads, c-collar.. Patient returned to the bad and instructed to stay in the bed.). --18:54 Marya Jones R.N. 18:45. Patient ID band checked for patient name: family confirmed. Instructions provided to collect clean catch urine and patient verbalized understanding. Clean catch urine collected with return of yellow-colored clear urine; sample sent to lab for urinalysis and culture. Specimen labeled in the presence of the patient. --18:55 Marya Jones R.N. 20:30. ( Patient out of bed and pulled IV out, dripping blood all over the floor. Returned to bed and instructed to remain in the bed. repeatedly. Patient found outside walking down the sidewalk. Returned to the room, instructed to remain in the room and wait for his ride.). --21:22 Marya Jones R.N. <<STRICKEN ENTRY-- 21 late entry -. ( Patient refuses to follow directions and stay in the room.). --21:23 Marya Jones R.N. --END STRIKE>> Correction --21:23 Marya Jones R.N. 21:20 late entry -. ( Patient refuses to follow directions and stay in the room.). --21:23 Marya Jones R.N. 21:03 11/23/2016 IV Fluids IV NS Discontinued: bag #1 discontinued. Total amount infused: 750 mL. IV patency established. IV site checked: no pain, redness, or swelling. IV flushed thoroughly. (Patient pulled iv out.). --22:03 Marya Jones R.N. 21:04 11/23/2016 Site #1 removed. Catheter intact. Bandaid applied. --22:04 Marya Jones R.N. DISPOSITION / DISCHARGE 19:14 11/23/16. BP: 112/69. HR: 77. RR: 20. O2 saturation: 98% on room air. 17:34 11/23/16. BP: 110/76. HR: 77. RR: 20. O2 saturation: 98% on room air. --21:25 Marya Jones R.N. The patient left the Emergency Department; (Eloped). The patient appears to be alert, oriented x4, coherent, in no acute distress and uncooperative. He stated is leaving the ED due to personal reasons. Notified the ED physician and charge nurse of patient departure. He was informed of the risks of leaving and verbalized understanding of these risks. Patient left without signing form prior to leaving. He left the Emergency Department ambulatory. --22:01 Marya Jones R.N. Locked/Released at 11/23/2016 22:05 by Marya Jones R.N.
--- NOTE | 2016-11-23 20:34 | ED ORDER SUMMARY ---
..... Patient: MAREN COVARRUBIAS OrderSheet [facility] VisitID: [id number] [address] [place] [address] 56y, M Registration Date/Time: 11/23/2016 ORDER SHEET Weight: 70.3 kg (stated) Allergies: NKDA GENERAL ORDERS: Chest 1V Urgent (16:47 11/23/2016 Arron THOMPSON) (Ack 16:49 Sushant) (19:11 Mikey) Aircraft Body Repairer (Continuous) (16:47 11/23/2016 Arron THOMPSON) (16:55 SRoberts R.N.) CBC w Diff Urgent (16:48 11/23/2016 Arron THOMPSON) (Ack 16:49 TREMAINEoemercedes) (16:55 SRoberts R.N.) CMP Urgent (16:48 11/23/2016 Arron THOMPSON) (Ack 16:49 TREMAINEoemercedes) (16:55 SRoberts R.N.) UA-Culture if indicated Urgent (16:48 11/23/2016 Arron THOMPSON) (Ack 16:49 Sushant) (18:54 SRoberts R.N.) Amylase Urgent (16:48 11/23/2016 Arron THOMPSON) (Ack 16:49 TREMAINEoercarroll) (16:55 SRoberts R.N.) Lipase Urgent (16:48 11/23/2016 Arron THOMPSON) (Ack 16:49 TREMAINEoerner) (16:55 SRoberts R.N.) PT with INR Urgent (16:48 11/23/2016 Arron THOMPSON) (Ack 16:49 TREMAINEoercarroll) (16:55 SRoberts R.N.) PTT Urgent (16:48 11/23/2016 Arron THOMPSON) (Ack 16:49 TREMAINEoercarroll) (16:55 SRoberts R.N.) CPK Urgent (16:48 11/23/2016 Arron THOMPSON) (Ack 16:49 TREMAINEoercarroll) (16:55 SRoberts R.N.) Troponin-I Urgent (16:48 11/23/2016 Arron THOMPSON) (Ack 16:49 Sushant) (16:55 SRoberts R.N.) Ethyl Alcohol Urgent (16:48 11/23/2016 Arron THOMPSON) (Ack 16:49 Sushant) (16:55 Georgie R.N.) Oxygen (2 L/min) (NC) (16:48 11/23/2016 Arron THOMPSON) (16:55 Georgie R.N.) EKG - ER Stat (16:48 11/23/2016 Arron THOMPSON) (17:25 OHernandez) CT Head wo Cont Urgent (16:48 11/23/2016 Arron THOMPSON) (Ack 16:49 Sushant) (18:50 Mikey) CT Cervical Spine wo Cont Urgent (16:49 11/23/2016 Arron THOMPSON) (Ack 16:49 Sushant) (18:51 Mikey) CT Abd/Pel w Cont (No) (See report) Urgent (17:14 11/23/2016 Arron THOMPSON) (Ack 17:16 Sushant) (18:51 Mikey) MEDICATION ORDERS: IV FLUIDS: IV NS with Folic Acid 1 mg/L, Multivitamin Concentrate Intravenous 1 amp/L, Thiamine HCl 100 mg/L: initial bolus 500 mL (1000 mL/hr), then 125 mL/hr for 4h (NOW); Urgent (16:48 11/23/2016 Arron THOMPSON) (Ack 16:54 oberts R.N.) (17:33 Meetk R.N.) Protonix IVP 40mg 40 mg (Mix in NS 10ml over 2min) (17:28 11/23/2016 Arron THOMPSON) (17:45 MCook R.N.) Zofran IV 4 mg (NOW) (17:49 11/23/2016 MCtonyk R.N. verbal order read back to Arron THOMPSON) (17:49 Bhakti R.N.) ORDER SHEET NOTES: [Electronically signed by Godwin Yarbrough MD (21:52 11/23/2016)] [Electronically signed by Marya Jones R.N. (22:05 11/23/2016)] [Electronically locked/signed by Marya Jones R.N. (22:05 11/23/2016)]
--- NOTE | 2016-11-23 20:34 | ED CLINICAL REPORT ---
Clinical Report - Physicians/Mid Levels [facility] [address] [place] [address] 11/23/2016 16:32 Patient: MAREN COVARRUBIAS Time Seen: 16:46. Arrived- By ambulance. Historian- patient and EMS personnel. History limited by intoxication. Physical Exam limited by intoxication. HISTORY OF PRESENT ILLNESS Chief Complaint: FALL. Location of injuries- head and neck. The injury occurred just prior to arrival. Occurred at home. Fell; lost balance. The patient complains of moderate pain. The patient complains of neck pain and had uncertain duration loss of consciousness. REVIEW OF SYSTEMS No chills, fever, sweats, calf pain or chest pain. No cough, difficulty breathing, pedal edema, palpitations or constipation. No diarrhea, nausea, vomiting or urinary problems. He has had abdominal pain. The pain is described as located in the central area of the abdomen. All systems otherwise negative, except as recorded above. SOCIAL HISTORY Current every day light tobacco smoker (cigarette)- less than 1/2 a pack per day. Alcohol use; consumes liquor by the bottle daily. Patient is a longstanding alcoholic. FAMILY HISTORY Denies family medical history. ADDITIONAL NOTES The nursing notes have been reviewed. PHYSICAL EXAM Vital Signs: Have been reviewed. Appearance: C-collar in place. Alert. Head: Forehead: mild swelling of the left side of the forehead. Eyes: Pupils equal, round and reactive to light. EOM intact. ENT: No dental injury. Pharynx normal. Neck: Painless ROM. Non-tender. No vertebral tenderness. CVS: Heart sounds normal. Pulses normal. Respiratory: Breath sounds normal. Abdomen: No visible injury. Soft. Moderate tenderness in the epigastric area. Bowel sounds normal. No organomegaly. No mass. Back: No tenderness. ROM normal. No vertebral point tenderness. Skin: Skin intact. Skin warm and dry. Normal skin color. Normal skin turgor. Extremities: Normal inspection. Pelvis stable. Extremities atraumatic. No lower extremity edema. Neuro: No motor deficit. No sensory deficit. LABS, X-RAYS, AND EKG EKG: Rate: 118. EKG unchanged when compared with prior EKG. (08 November 2016). The study has been independently viewed by me. Laboratory Tests: UA-Culture if indicated: (RENAY: 11/23/2016 18:35) ( MsgRcvd 11/23/2016 19:09) Final results Test Result Flag Units (Reference) URINE COLOR YELLOW URINE APPEARANCE CLEAR URINE GLUCOSE NEGATIVE (NEGATIVE) URINE BILIRUBIN NEGATIVE (NEGATIVE) URINE KETONE TRACE (NEGATIVE) URINE SPECIFIC GRAVITY <= 1.005 L (1.010-1.030) URINE PH 5.5 (5.0-8.0) URINE PROTEIN NEGATIVE (NEGATIVE) URINE UROBILINOGEN 0.2 EU/dL (0.2-1.0) URINE NITRITE NEGATIVE (NEGATIVE) URINE BLOOD 1+ (NEGATIVE) URINE LEUK ESTERASE NEGATIVE (NEGATIVE) URINE RBC NONE SEEN rbc/hpf (0-1) URINE WBC NONE SEEN wbc/hpf (0-1) URINE EPITHELIAL CELLS NONE SEEN EPI/hpf (0-5) URINE BACTERIA NONE SEEN (NONE SEEN) URINE COMMENT CULT NOT INDICATED URINE CULTURES ARE SET-UP BASED ON THE FOLLOWING CRITERIA:POSITIVE NITRITEPOSITIVE LEUKOCYTE ESTERASEGREATER THAN 10 WHITE BLOOD CELLSMODERATE (2+) OR GREATER BACTERIA CBC w Diff: (RENAY: 11/23/2016 16:40) ( MsgRcvd 11/23/2016 17:02) Final results Test Result Flag Units (Reference) WHITE BLOOD COUNT 8.8 K/uL (4.5-11.5) RED BLOOD COUNT 5.31 M/uL (4.50-5.90) HEMOGLOBIN 17.4 gm/dL (13.5-17.5) HEMATOCRIT 52.1 % (41.0-53.0) MEAN CELL VOLUME 98 fL (80-100) MEAN CORPUSCULAR HGB 33 pg (26-34) MEAN CORPUSCULAR HGB CONC 33 g/dL (31-37) RED CELL DISTRIBUTION WIDTH 15.1 H % (11.6-14.8) PLATELET COUNT 642 H K/uL (150-400) LYMPH % 18.8 L % (25-40) MONO % 7.4 % (3-14) GRANULOCYTE % 73.8 PT with INR: (RENAY: 11/23/2016 16:40) ( MsgRcvd 11/23/2016 17:05) Final results Test Result Flag Units (Reference) INR 1.0 (0.8-1.2) Low Intensity Therapy: INR 1.5-2.0 PT range 18.5-23.1Mod.Intensity Therapy: INR 2.0-3.0 PT range 23.1-31.5High Intensity Therapy: INR 2.5-3.5 PT range 27.4-35.5High Intensity Therapy 2: INR 3.0-4.0 PT range 31.5-39.3 APTT 33 SECONDS (24-34) CMP: (RENAY: 11/23/2016 16:40) ( MsgRcvd 11/23/2016 17:15) Final results Test Result Flag Units (Reference) GLUCOSE 121 H mg/dL (70-110) BUN 5 L mg/dL (7-18) CREATININE 0.8 mg/dL (0.6-1.3) Estimated GFR >60 mL/min Estimated GFR- >60 mL/min Note: Persistent reduction over 3 months in eGFR<60 mL/min/1.73 m2 defines CKD. Patients with eGFR values>=60 mL/min/1.73 m2 may also have CKD if evidence ofpersistent proteinuria. Additional information may be foundat www.kidney.org. SODIUM 147 H mmol/L (136-145) POTASSIUM 3.5 mmol/L (3.5-5.1) CHLORIDE 109 H mmol/L (98-107) CARBON DIOXIDE 24 mmol/L (21-32) CALCIUM 8.5 mg/dL (8.5-10.1) TOTAL PROTEIN 7.5 g/dL (6.4-8.2) ALBUMIN 3.9 g/dL (3.3-5.0) BILIRUBIN, TOTAL 0.4 mg/dL (0.0-1.0) ALKALINE PHOSPHATASE 124 H U/L (46-116) AST (SGOT) 32 U/L (15-37) ALT (SGPT) 58 U/L (12-78) LIPASE 122 U/L (73-393) AMYLASE 38 U/L (25-115) CPK 226 U/L (24-260) TROPONIN I <0.05 ng/mL (0.00-1.5) TROPONIN REFERENCE RANGE:<0.1 NEGATIVE0.1-1.5 INDETERMINANT>1.5 POSITIVE ETHYL ALCOHOL 391 H mg/dL (3-10) . PROGRESS AND PROCEDURES Course of Care: Patient is stable. Patient/family counseled. Old medical records reviewed. Disposition: Discharged. Condition: stable. CLINICAL IMPRESSION Microscopic hematuria Closed head injury. Loss of consciousness of unknown duration. Alcohol intoxication with alcohol dependence. Chronic alcoholic gastritis Fall on same level by tripping. INSTRUCTIONS No alcohol. Seek medical help to quit drinking. Warnings: GENERAL WARNINGS: Return or contact your physician immediately if your condition worsens or changes unexpectedly, if not improving as expected, or if other problems arise. Your Current Medications: CONTINUE TAKING THE FOLLOWING MEDICATIONS: Gabapentin Oral : 300 mg 2x a day. PriLOSEC Oral. Understanding of the discharge instructions verbalized by patient and family. Follow-up with: [facility], , , [address], , [place], [id number] Follow up in six days. Call for the next available appointment. (Electronically signed by Godwin Yarbrough MD 11/23/2016 21:52)
--- NOTE | 2016-11-23 20:34 | ED ORDER SUMMARY ---
..... Patient: MAREN COVARRUBIAS OrderSheet [facility] VisitID: [id number] [address] [place] [address] 56y, M Registration Date/Time: 11/23/2016 ORDER SHEET Weight: 70.3 kg (stated) Allergies: NKDA GENERAL ORDERS: Chest 1V Urgent (16:47 11/23/2016 Arron THOMPSON) (Ack 16:49 Sushant) (19:11 Mikey) Straddle Buggy Operator (Continuous) (16:47 11/23/2016 Arron THOMPSON) (16:55 SRoberts R.N.) CBC w Diff Urgent (16:48 11/23/2016 Arron THOMPSON) (Ack 16:49 TREMAINEoemercedes) (16:55 SRoberts R.N.) CMP Urgent (16:48 11/23/2016 Arron THOMPSON) (Ack 16:49 TREMAINEoemercedes) (16:55 SRoberts R.N.) UA-Culture if indicated Urgent (16:48 11/23/2016 Arron THOMPSON) (Ack 16:49 Sushant) (18:54 SRoberts R.N.) Amylase Urgent (16:48 11/23/2016 Arron THOMPSON) (Ack 16:49 TREMAINEoercarroll) (16:55 SRoberts R.N.) Lipase Urgent (16:48 11/23/2016 Arron THOMPSON) (Ack 16:49 TREMAINEoerner) (16:55 SRoberts R.N.) PT with INR Urgent (16:48 11/23/2016 Arron THOMPSON) (Ack 16:49 TREMAINEoercarroll) (16:55 SRoberts R.N.) PTT Urgent (16:48 11/23/2016 Arron THOMPSON) (Ack 16:49 TREMAINEoercarroll) (16:55 SRoberts R.N.) CPK Urgent (16:48 11/23/2016 Arron THOMPSON) (Ack 16:49 TREMAINEoercarroll) (16:55 SRoberts R.N.) Troponin-I Urgent (16:48 11/23/2016 Arron THOMPSON) (Ack 16:49 Sushant) (16:55 SRoberts R.N.) Ethyl Alcohol Urgent (16:48 11/23/2016 Arron THOMPSON) (Ack 16:49 Sushant) (16:55 Georgie R.N.) Oxygen (2 L/min) (NC) (16:48 11/23/2016 Arron THOMPSON) (16:55 Georgie R.N.) EKG - ER Stat (16:48 11/23/2016 Arron THOMPSON) (17:25 OHernandez) CT Head wo Cont Urgent (16:48 11/23/2016 Arron THOMPSON) (Ack 16:49 Sushant) (18:50 Mikey) CT Cervical Spine wo Cont Urgent (16:49 11/23/2016 Arron THOMPSON) (Ack 16:49 Sushant) (18:51 Mikey) CT Abd/Pel w Cont (No) (See report) Urgent (17:14 11/23/2016 Arron THOMPSON) (Ack 17:16 Sushant) (18:51 Mikey) MEDICATION ORDERS: IV FLUIDS: IV NS with Folic Acid 1 mg/L, Multivitamin Concentrate Intravenous 1 amp/L, Thiamine HCl 100 mg/L: initial bolus 500 mL (1000 mL/hr), then 125 mL/hr for 4h (NOW); Urgent (16:48 11/23/2016 Arron THOMPSON) (Ack 16:54 oberts R.N.) (17:33 Meetk R.N.) Protonix IVP 40mg 40 mg (Mix in NS 10ml over 2min) (17:28 11/23/2016 Arron THOMPSON) (17:45 MCook R.N.) Zofran IV 4 mg (NOW) (17:49 11/23/2016 MCtonyk R.N. verbal order read back to Arron THOMPSON) (17:49 Bhakti R.N.) ORDER SHEET NOTES: [Electronically signed by Godwin Yarbrough MD (21:52 11/23/2016)] [Electronically signed by Marya Jones R.N. (22:05 11/23/2016)] [Electronically locked/signed by Marya Jones R.N. (22:05 11/23/2016)]
--- NOTE | 2016-11-23 22:05 | ED MAR SUMMARY ---
..... Medication Administration Record [facility] [address] [place] [address] Patient: MAREN COVARRUBIAS Visit ID: [id number] 56y, M Weight: 70.3 kg Height/Length: 65 in BMI: 25.8 ALLERGIES: NKDA Start 17:28 11/23/2016 Abraham Hopkins R.N., Stop 21:03 11/23/2016 Marya Jones R.N. Medication Administered: IV NS (SALINE), Dose: IV Fluids over 1 hour(s), Rate: 1000 mL/hr, Dispensed: 1000 mL bag, Site: #1 left forearm. Medication Ordered: IV NS with Folic Acid 1 mg/L, Multivitamin Concentrate Intravenous 1 amp/L, Thiamine HCl 100 mg/L: initial bolus 500 mL (1000 mL/hr), then 125 mL/hr for 4h (NOW); Urgent. Given 17:45 11/23/2016 Abraham Hopkins R.N. Medication Administered: PROTONIX [IVP] (PANTOPRAZOLE SODIUM), Dose: 40 mg IVP over 2 minute(s), Site: #1 left forearm. Medication Ordered: Protonix IVP 40mg 40 mg (Mix in NS 10ml over 2min). Given 17:49 11/23/2016 Abraham Hopkins R.N. Medication Administered: ZOFRAN [IVP] (ONDANSETRON HCL), Dose: 4 mg IVP over 2 minute(s), Site: #1 left forearm. Medication Ordered: Zofran IV 4 mg (NOW).
--- NOTE | 2016-11-23 22:05 | ED MAR SUMMARY ---
..... Medication Administration Record [facility] [address] [place] [address] Patient: MAREN COVARRUBIAS Visit ID: [id number] 56y, M Weight: 70.3 kg Height/Length: 65 in BMI: 25.8 ALLERGIES: NKDA Start 17:28 11/23/2016 Abraham Hopkins R.N., Stop 21:03 11/23/2016 Marya Jones R.N. Medication Administered: IV NS (SALINE), Dose: IV Fluids over 1 hour(s), Rate: 1000 mL/hr, Dispensed: 1000 mL bag, Site: #1 left forearm. Medication Ordered: IV NS with Folic Acid 1 mg/L, Multivitamin Concentrate Intravenous 1 amp/L, Thiamine HCl 100 mg/L: initial bolus 500 mL (1000 mL/hr), then 125 mL/hr for 4h (NOW); Urgent. Given 17:45 11/23/2016 Abraham Hopkins R.N. Medication Administered: PROTONIX [IVP] (PANTOPRAZOLE SODIUM), Dose: 40 mg IVP over 2 minute(s), Site: #1 left forearm. Medication Ordered: Protonix IVP 40mg 40 mg (Mix in NS 10ml over 2min). Given 17:49 11/23/2016 Abraham Hopkins R.N. Medication Administered: ZOFRAN [IVP] (ONDANSETRON HCL), Dose: 4 mg IVP over 2 minute(s), Site: #1 left forearm. Medication Ordered: Zofran IV 4 mg (NOW).
--- NOTE | 2016-11-23 22:05 | ED MED RECONCILIATION SUMMARY ---
Patient: MAREN COVARRUBIAS Medication Reconciliation Report [facility] VisitID: [id number] [address] [place] [address] 56y, M Registration Date/Time: 11/23/2016 Weight: 70.3 kg Height/Length: 65 in. BMI: 25.8 ALLERGIES: NKDA The patient's Home Medications are listed below: CONTINUE TAKING THE FOLLOWING MEDICATIONS: Gabapentin Oral 300 mg, 2x a day PriLOSEC Oral The source(s) of the original Home Medication information: patient The following Medications were given to the patient in the Emergency Department: IV NS IV Fluids bolus 0, then 1000 mL/hr, administered: 11/23/2016 5:28:00 PM PROTONIX [IVP] IVP 40 mg, administered: 11/23/2016 5:45:00 PM Zofran [IVP] IVP 4 mg, administered: 11/23/2016 5:49:00 PM The following Medications were prescribed to the patient: None.
--- NOTE | 2016-11-23 22:05 | ED DISCHARGE INSTRUCTIONS ---
Patient: MAREN COVARRUBIAS General Instructions [facility] VisitID: [id number] [address] [place] [address] 56y, M Registration Date/Time: 11/23/2016 Microscopic hematuria Closed head injury. Loss of consciousness of unknown duration. Alcohol intoxication with alcohol dependence. Chronic alcoholic gastritis Fall on same level by tripping. INSTRUCTIONS No alcohol. Seek medical help to quit drinking. Warnings: GENERAL WARNINGS: Return or contact your physician immediately if your condition worsens or changes unexpectedly, if not improving as expected, or if other problems arise. Your Current Medications: CONTINUE TAKING THE FOLLOWING MEDICATIONS: Gabapentin Oral : 300 mg 2x a day. PriLOSEC Oral. Understanding of the discharge instructions verbalized by patient and family. Follow-up with: [facility], , , [address], , [place], [id number] Follow up in six days. Call for the next available appointment. ADDITIONAL INFORMATION Mechanical Fall You have had a fall today. It appears that the cause is mechanical. That means that you slipped, tripped or lost your balance. If your fall had been due to fainting or a seizure, further tests would be required. Home Care: Rest today and resume your normal activities when you are feeling back to normal. If you were injured during the fall, follow the advice from your doctor regarding care of your injury. You may use acetaminophen (Tylenol) or ibuprofen (Motrin, Advil) to control pain, unless another pain medicine was prescribed. [NOTE: If you have chronic liver or kidney disease or ever had a stomach ulcer or GI bleeding, talk with your doctor before using these medicines.] Fall Prevention: Was there anything that caused your fall that can be fixed, removed, or replaced? Make your home safe by keeping walkways clear of objects you may trip over. Use non-slip pads under rugs. Do not walk in poorly lit areas. Do not stand on chairs or wobbly ladders. Use caution when reaching overhead or looking upward. This position can cause a loss of balance. Be sure your shoes fit properly, have non-slip bottoms and are in good condition. Be cautious when going up and down curbs, and walking on uneven sidewalks. If your balance is poor, consider using a cane or walker. Stay as active as you can. Balance, flexibility, strength, and endurance all come from exercise. They all play a role in preventing falls. Follow Up with your doctor or as advised by our staff. Get Prompt Medical Attention if any of the following occur: Repeated mechanical falls, or unexplained falls Dizziness, fainting or seizure Severe headache Chest pain or shortness of breath Palpitations (very rapid or very slow or irregular heartbeat) Blood in vomit, stools (black or red color) Weakness of an arm or leg or one side of the face Difficulty with speech or vision Head Injury With Wake-Up (Adult) You have had a head injury. It does not appear serious at this time. Symptoms of a more serious problem (concussion, bruising, or bleeding in the brain) may appear later. Therefore, watch for the WARNING SIGNS listed below. Home Care: During the next 24 hours someone must stay with you. This person should wake you every 2 hours to check for the signs below. If you have swelling of the face or scalp, apply an ice pack (ice cubes in a plastic bag, wrapped in a towel) for 20 minutes every 1-2 hours until the swelling starts to go down. Do not use aspirin or ibuprofen (Motrin, Advil) after a head injury. You may use acetaminophen (Tylenol) to control pain, unless another pain medicine was prescribed. [NOTE: If you have chronic liver or kidney disease or ever had a stomach ulcer or GI bleeding, talk with your doctor before using these medicines.] For the next 24 hours: Do not take alcohol, sedatives, or medicines that make you sleepy. Do not drive or operate machinery. Avoid strenuous activities. No lifting or straining. If you have had any symptoms of a concussion today (nausea, vomiting, dizziness, confusion, headache, memory loss, or you were knocked out), do not return to sports or any activity that could result in another head injury until all symptoms are gone and you have been cleared by your doctor. A second head injury before fully recovering from the first one can lead to serious brain injury. Follow Up with your doctor if symptoms are not improving after 24 hours, or as directed. [NOTE: A radiologist will review any X-rays or CT scans that were taken. We will notify you of any new findings that may affect your care.] Get Prompt Medical Attention if any of the following WARNING SIGNS occur: Repeated vomiting Severe or worsening headache or dizziness Unusual drowsiness, or unable to awaken as usual Confusion or change in behavior or speech, memory loss, blurred vision Convulsion (seizure) Increasing scalp or face swelling Redness, warmth or pus from the swollen area Fluid drainage or bleeding from the nose or ears Alcohol Intoxication Alcohol intoxication occurs when you drink alcohol faster than your liver can remove it from your system. Alcohol intoxication affects your judgment and coordination. Very high blood alcohol levels can cause coma, very slow breathing and even . If you drink alcohol every day, this may gradually cause permanent damage to your liver, brain, heart, pancreas and other organs. Alcohol use during may cause permanent damage to the growing baby. Home Care: Do not drink any more alcohol. DO NOT DRIVE until all effects of the alcohol have worn off. Get lots of rest over the next few days. Drink plenty of water and other non-alcoholic liquids. Try to eat regular meals. If you have been drinking heavily on a daily basis, you may go through alcohol withdrawl. This is also called the shakes or DTs. The usual symptoms last 3 to 4 days and may include nervousness, shakiness, nausea, sweating or sleeplessness. During this time, it is best that you stay with family or friends who can help and support you. You can also admit yourself to a residential detox program. If your symptoms are severe, contact your doctor for medicines to help. Follow Up: If alcohol is causing a problem in your life, these and other organizations can help you: Alcoholics Anonymous offers support through a self-help fellowship. There are no dues or fees. See the Yellow Pages and call for time and place of meetings. www.aa.org [employer] offers support to families of alcohol users. 760.549.7638 www.al-anon.org [employer] [place] On Alcoholism And Drug Dependence 415-141-9486 www.ncadd.org There are also inpatient or residential alcohol detox programs. Check the Internet or phonebook Yellow Pages under Drug Abuse & Treatment Centers. Get Prompt Medical Attention if any of the following occur: there) Gastritis Versus Ulcer (No Antibiotic Tx) The symptoms of gastritis and peptic ulcer are very similar. Both can cause a dull ache or burning pain in the upper abdomen. Other symptoms include nausea, vomiting, loss of appetite, and belching or bloating. Blood in the vomit or stools (red or black) is a sign of bleeding in the stomach. This requires immediate medical attention. A Peptic Ulcer is an open sore in the lining of the stomach or duodenum (upper intestine). The most common cause of peptic ulcer disease is a bacterial infection (H pylori) in the stomach. Another common cause is taking anti-inflammatory medications (such as ibuprofen, prednisone, and aspirin). Gastritis is an irritation of the stomach lining. It can be acute (recent) or chronic (lasting a long time). Gastritis can be caused by overuse of alcohol or anti-inflammatory medications (such as aspirin, ibuprofen, prednisone). H pyloriinfection can also cause chronic gastritis. Tests for H pyloriare used to screen for bacterial infection. If no infection is found, ulcer and gastritis can be treated by stopping the cause, such as anti-inflammatory medications, alcohol, caffeine, and tobacco, and treating with antacids plus an acid josé medication. If H pylori infection is found, antibiotics will be prescribed along with an acid josé. Persons 55 years and older may undergo other tests before treatment is started. Two common tests are used to evaluate your symptoms. An upper GI series is an x-ray taken after you drink a chalky liquid called barium. This coats the stomach and allows an ulcer to show up on the x-ray. Another test is called endoscopy during which a long thin tube called an endoscope is passed down your throat to the stomach. A camera at the end of the scope allows the doctor to view inside the stomach to check the cause of your symptoms. Home Care: Take the prescribed acid josé medication for the full course of treatment even if you begin to feel better sooner. This medication can take up to several days to fully control your symptoms. If you cant afford the prescribed medication, you can try ynju-hry-umatmtu acid blockers, such as Pepcid AC, Tagamet, Zantac, or Aciphex. If these do not relieve your symptoms, a stronger acid-josé can be tried, such as Prilosec OTC. If you have been prescribed an antibiotic to treat H pyloriinfection, finish the full course of medication. Do so even if you begin to feel better sooner. If you stop the medication too soon, the infection can return and be harder to treat. You can use antacids, such as Tums, Rolaids, Mylanta, or Maalox, for pain. This will be useful the first few days after starting acid blockers when the blockers havent started working yet. Follow the directions on the label. Liquid antacids may work better than tablets. Note that antacids can interfere with absorption of certain medications. Specifically, do not take Tagamet (cimetidine), Zantac (ranitidine), or Carafate (sucralfate) within 1 hour of taking an antacid. Talk with your pharmacist if you have any questions. Although foods do not cause an ulcer, symptoms can be worsened by certain foods. Limit or avoid fatty, fried, and spicy foods, as well as coffee, chocolate, mint, and foods with high acid content such as tomatoes and citrus fruit and juices (orange, grapefruit, lemon). Avoid alcohol, caffeine, and tobacco, which can delay healing. Avoid aspirin and anti-inflammatory medications such as ibuprofen (Advil, Motrin) and naproxen (Naprosyn, Aleve). Acetaminophen (Tylenol) is safe to use. Do not take more than the amount listed on the label. Follow Up with your doctor or as advised. Further testing may be needed. If you do not begin to improve over the next 4 days, contact your doctor. If you had tests, youll be notified of any new findings that affect your care. Get Prompt Medical Attention if any of the following occur: Stomach pain gets worse or moves to the lower right abdomen (appendix area) Chest pain appears or gets worse, or spreads to the back, neck, shoulder, or arm Frequent vomiting (cant keep down liquids) Blood in the stool or vomit (red or black in color) Feeling weak or dizzy, fainting, or trouble breathing Fever of 100.4F (38C) or higher, or as directed by your healthcare provider Blood In The Urine Blood in the urine ("hematuria") has many possible causes. If it occurs after an injury (such as a car accident or fall), it is most often a sign of bruising to the kidney or bladder. Common medical causes of blood in the urine include urinary tract infection, kidney stone, inflammation, tumors, or certain other diseases of the kidney or bladder. Menstruation can cause blood to appear in the urine sample, although it is not coming from the urinary tract. If only a trace amount of blood is present, it will show up on the urine test, even though the urine may be yellow and not pink or red. This may occur with any of the above conditions, as well as heavy exercise or high fever. In this case, your doctor may want to repeat the urine test on another day. This will show if the blood is still present. If so, then other tests can be done to find out the cause. Home Care: If your urine does not appear bloody (pink, brown or red) then you do not need to restrict your activity in any way. If you can see blood in your urine, rest and avoid heavy exertion until your next exam. Do not use aspirin or anti-inflammatory medicine like ibuprofen (Motrin, Advil) or naproxen (Naprosyn, Aleve). These thin the blood and may increase bleeding. Follow Up with your doctor or as advised by our staff. If you were injured and had blood in your urine, you should have a repeat urine test in 1-2 days. Contact your doctor or return to this facility for this test. [NOTE: A radiologist will review any X-rays that were taken. We will notify you of any new findings that may affect your care.] Get Prompt Medical Attention if any of the following occur: Bright red blood or blood clots in the urine (if a new symptom) Weakness, dizziness or fainting New groin, abdominal or back pain Fever of 100.4F (38C) or higher, or as directed by your healthcare provider Repeated vomiting Bleeding from nose, gums or easy bruising You have been given the following additional information: Fall, Mechanical HEAD INJURY with Wake-Up (Adult) Alcohol Intoxication Gastritis Vs. Ulcer Hematuria (Electronically signed by Godwin Yarbrough MD 11/23/2016 21:52)
--- NOTE | 2016-11-23 22:05 | ED MED RECONCILIATION SUMMARY ---
Patient: MAREN COVARRUBIAS Medication Reconciliation Report [facility] VisitID: [id number] [address] [place] [address] 56y, M Registration Date/Time: 11/23/2016 Weight: 70.3 kg Height/Length: 65 in. BMI: 25.8 ALLERGIES: NKDA The patient's Home Medications are listed below: CONTINUE TAKING THE FOLLOWING MEDICATIONS: Gabapentin Oral 300 mg, 2x a day PriLOSEC Oral The source(s) of the original Home Medication information: patient The following Medications were given to the patient in the Emergency Department: IV NS IV Fluids bolus 0, then 1000 mL/hr, administered: 11/23/2016 5:28:00 PM PROTONIX [IVP] IVP 40 mg, administered: 11/23/2016 5:45:00 PM Zofran [IVP] IVP 4 mg, administered: 11/23/2016 5:49:00 PM The following Medications were prescribed to the patient: None.
== END ==
LOC: ED SRH 16:30
DX: S06.9X9A Unspecified intracranial injury with loss of consciousness of unspecified duration, initial encounter (principal); W01.0XXA Fall on same level from slipping, tripping and stumbling without subsequent striking against object, initial encounter; Y92.019 Unspecified place in single-family (private) house as the place of occurrence of the external cause; K29.20 Alcoholic gastritis without bleeding; F10.229 Alcohol dependence with intoxication, unspecified; Y90.8 Blood alcohol level of 240 mg/100 ml or more; R31.29 Other microscopic hematuria; I10 Essential (primary) hypertension
CPT/HCPCS: 90004; 90100; 90616; 92010; 92235; 92530; 92610; 94001; 94060; 95059

== ENCOUNTER 2016-11-26 08:33 | Emergency (ER) | payer OTHER ==
--- NOTE | 2016-11-26 10:57 | ED NURSING NOTES ---
Clinical Report - Nurses [facility] [address] [place] [address] 11/26/2016 8:39 Patient: MAREN COVARRUBIAS TRIAGE Triage time 08:40. Acuity: LEVEL 3. Chief Complaint: (intoxcated). Alert. SEPSIS SCREEN: Sepsis Screen. Negative (no infection suspected/documented). NEETU COMA SCORE: [place] Coma Scale: 14- eyes open spontaneously (4); best verbal response- disoriented (4); best motor response- obeys commands (6). --08:52 Ni Becerra R.N. 08:42 11/26/16. BP: 124/85. HR: 103. RR: 20. O2 saturation: 95%. Temp: 98.0 F. Pain level now 03/18. --08:52 Ni Becerra R.N. Weight: 49.8 kg stated. Height/Length: 65 inches Per Patient. BMI: 18.3. --08:48 Ni Becerra R.N.. Weight: 58.9 kg estimated. BMI: 21.6. --08:48 Ni Becerra R.N. Medications Gabapentin Oral 300 mg, 2x a day. PriLOSEC Oral. --08:50 Ni Becerra R.N. Allergies NKDA. --08:50 Ni Becerra R.N. Medication/allergy information source: the patient. --08:52 Ni Becerra R.N. History Arrived by EMS. Historian: EMS. Primary physician (no pcp). ( mother of pt called 911 for patient's intoxication. Per EMS he was discharged from [facility] yesterday). This started today. Treatment BALLISTIC TECHNICIAN: None. SOCIAL HX: Heavy tobacco smoker (cigarette)- 1 pack per day. Alcohol use. (2 fiths of etoh per day). FALL RISK ASSESSMENT: Fall risk assessment completed. Risk factors identified include patient impairment of cognition. Fall interventions initiated. Patient placed on stretcher. Side rails up x2. Brakes on Bed in low position. Patient visible from nurses' station and identified as a fall risk by ID band. Call light in reach of patient. Instructed not to get up without assistance; due to etoh intox. NUTRITIONAL RISK ASSESSMENT: Notification has been made to the Emergency Department physician. Nutritional risk assessment notes: FTT according to EMS/mother of pt. --08:52 Ni Becerra R.N. Treatment BALLISTIC TECHNICIAN: Finger stick glucose performed (143). BP: 142/96. HR: 100. O2 saturation: 94 % room air. Upon arrival patient awake and confused. --08:57 Ni Becerra R.N. PROBLEMS: Hematuria. Fall. Head Injury. Hypertension. Alcoholism. Abdominal Pain. Alcohol abuse. Suicidal Ideation. ETOH. COPD - Chronic Obstructive Pulmonary Disease. Seizure. Stomach Ulcers. Lifestyle / Substance Problems. Gastritis. Bipolar Disorder. Substance Abuse. Alcohol Intoxication. Sinus Tachycardia. Alcohol Withdrawal. Hypokalemia. Immunizations. --08:50 Ni Becerra R.N. ADDITIONAL SURGERIES: Endoscopy. Eye surgery. Gastric surgery. Leg surgery. --08:50 Ni Becerra R.N. Interventions ID band on patient. To treatment room. --08:52 Ni Becerra R.N. PHYSICAL ASSESSMENT To room via stretcher. GENERAL / NEURO / PSYCH: Appears in no acute distress. Decreased awareness (eyes open, but do not track and lethargic). The patient is disoriented to time and situation. RESPIRATORY: Respirations not labored. CVS: Cardiac rhythm: sinus tachycardia. GI / : Abdomen soft. Abdominal tenderness in the upper abdomen and epigastric area. SKIN: Skin is warm and dry. --08:53 Ni Becerra R.N. NURSING PROGRESS NOTES The plan of care for this patient has been created. Patient gowned. Head of bed elevated. Patient hygiene performed: received partial bath. Patient is incontinent of urine. Changed patient linens. incontinent of urine. patient hygiene x 2 RNs. attends placed on pt. Call light placed in reach. Side rails up x 2. Bed placed in lowest position. Brakes of bed on. Patient ready for evaluation- chart flagged and ED physician notified. --08:54 Hernan, K Yancy, R.N. bus driver/monitor, pulse oximeter and NIBP monitor placed on patient. --08:54 Ni Becerra R.N. 08:56 11/26/16. ( breathalyzer 0.321). --08:57 Ni Becerra R.N. The patient is calm and sleeping. --09:06 Ni Becerra R.N. 09:13 11/26/2016 Site #1 started via IV in the left wrist with an 18g angiocath, with aseptic technique and good blood return; one attempt. Saline lock flushed with 10 mL saline. --09:23 Ni Becerra R.N. 09:42 11/26/2016 Started bag #1 1000 mL IV Fluids IV NS (Saline); bolus of 500 mL over 30 minute(s) then at 250 mL/hr with Folic Acid [IVPB] 1mg, Multivitamin [IVPB] 10unit dose and Thiamine [IVP] 100mg over 2 hour(s) via site #1 via IV pump. Allergies verified and confirmed 5 rights. IV patency established. IV site checked: no pain, redness, or swelling. IV flushed thoroughly pre- and post-medication administration. Completed per protocol. --09:42 Ni Becerra R.N. 10:28 11/26/16. Cardiac rhythm: sinus tachycardia. --10:28 Elroy Merritt R.N. 10:27 11/26/16. BP: 118/82. HR: 102. RR: 12. O2 saturation: 95% on room air. Temp: 97.7 F (oral). Pain level now: 03/18. Additional comments: 03/18 abd pain. --10:28 Elroy Merritt R.N. 11:04 11/26/2016 Site #1 removed. Catheter intact. Bandage applied (IV pulled out by pt). --11:14 Ni Becerra R.N. 11:08 11/26/2016 IV Fluids IV NS Discontinued: bag #1 STOPPED. Total amount infused: 800 mL. IV patency established. IV site checked: no pain, redness, or swelling. IV flushed thoroughly. (pt pulled IV out). --11:13 Ni Becerra R.N. 11:13 11/26/2016 Pantoprazole Sodium PO Tablets 40 mg given. Allergies verified and confirmed 5 rights. --11:13 Ni Becerra R.N. DISPOSITION / DISCHARGE 11:45 11/26/16. Departure time: 11:37. Condition at departure: improved and stable. Discharge instructions provided and reviewed with the patient and parent. Patient and parent verbalized understanding. Written instructions provided in Lao. The patient was discharged by the physician. He was discharged home and accompanied by parent. He left the Emergency Department ambulatory and via private vehicle. Parent driving. --11:45 Ni Becerra R.N. 11:44 11/26/16. BP: 122/77. HR: 90. RR: 16. O2 saturation: 98% on room air. Pain level now: 03/18. --11:45 Ni Becerra R.N. Locked/Released at 11/26/2016 13:49 by Ni Becerra R.N.
--- NOTE | 2016-11-26 10:57 | ED NURSING NOTES ---
Clinical Report - Nurses [facility] [address] [place] [address] 11/26/2016 8:39 Patient: MAREN COVARRUBIAS TRIAGE Triage time 08:40. Acuity: LEVEL 3. Chief Complaint: (intoxcated). Alert. SEPSIS SCREEN: Sepsis Screen. Negative (no infection suspected/documented). NEETU COMA SCORE: [place] Coma Scale: 14- eyes open spontaneously (4); best verbal response- disoriented (4); best motor response- obeys commands (6). --08:52 Ni Becerra R.N. 08:42 11/26/16. BP: 124/85. HR: 103. RR: 20. O2 saturation: 95%. Temp: 98.0 F. Pain level now 03/18. --08:52 Ni Becerra R.N. Weight: 49.8 kg stated. Height/Length: 65 inches Per Patient. BMI: 18.3. --08:48 Ni Becerra R.N.. Weight: 58.9 kg estimated. BMI: 21.6. --08:48 Ni Becerra R.N. Medications Gabapentin Oral 300 mg, 2x a day. PriLOSEC Oral. --08:50 Ni Becerra R.N. Allergies NKDA. --08:50 Ni Becerra R.N. Medication/allergy information source: the patient. --08:52 Ni Becerra R.N. History Arrived by EMS. Historian: EMS. Primary physician (no pcp). ( mother of pt called 911 for patient's intoxication. Per EMS he was discharged from [facility] yesterday). This started today. Treatment ALL ROUND LOGGER: None. SOCIAL HX: Heavy tobacco smoker (cigarette)- 1 pack per day. Alcohol use. (2 fiths of etoh per day). FALL RISK ASSESSMENT: Fall risk assessment completed. Risk factors identified include patient impairment of cognition. Fall interventions initiated. Patient placed on stretcher. Side rails up x2. Brakes on Bed in low position. Patient visible from nurses' station and identified as a fall risk by ID band. Call light in reach of patient. Instructed not to get up without assistance; due to etoh intox. NUTRITIONAL RISK ASSESSMENT: Notification has been made to the Emergency Department physician. Nutritional risk assessment notes: FTT according to EMS/mother of pt. --08:52 Ni Becerra R.N. Treatment ALL ROUND LOGGER: Finger stick glucose performed (143). BP: 142/96. HR: 100. O2 saturation: 94 % room air. Upon arrival patient awake and confused. --08:57 Ni Becerra R.N. PROBLEMS: Hematuria. Fall. Head Injury. Hypertension. Alcoholism. Abdominal Pain. Alcohol abuse. Suicidal Ideation. ETOH. COPD - Chronic Obstructive Pulmonary Disease. Seizure. Stomach Ulcers. Lifestyle / Substance Problems. Gastritis. Bipolar Disorder. Substance Abuse. Alcohol Intoxication. Sinus Tachycardia. Alcohol Withdrawal. Hypokalemia. Immunizations. --08:50 Ni Becerra R.N. ADDITIONAL SURGERIES: Endoscopy. Eye surgery. Gastric surgery. Leg surgery. --08:50 Ni Becerra R.N. Interventions ID band on patient. To treatment room. --08:52 Ni Becerra R.N. PHYSICAL ASSESSMENT To room via stretcher. GENERAL / NEURO / PSYCH: Appears in no acute distress. Decreased awareness (eyes open, but do not track and lethargic). The patient is disoriented to time and situation. RESPIRATORY: Respirations not labored. CVS: Cardiac rhythm: sinus tachycardia. GI / : Abdomen soft. Abdominal tenderness in the upper abdomen and epigastric area. SKIN: Skin is warm and dry. --08:53 Ni Becerra R.N. NURSING PROGRESS NOTES The plan of care for this patient has been created. Patient gowned. Head of bed elevated. Patient hygiene performed: received partial bath. Patient is incontinent of urine. Changed patient linens. incontinent of urine. patient hygiene x 2 RNs. attends placed on pt. Call light placed in reach. Side rails up x 2. Bed placed in lowest position. Brakes of bed on. Patient ready for evaluation- chart flagged and ED physician notified. --08:54 Hernan, K Yancy, R.N. ekg monitor tech, pulse oximeter and NIBP monitor placed on patient. --08:54 Ni Becerra R.N. 08:56 11/26/16. ( breathalyzer 0.321). --08:57 Ni Becerra R.N. The patient is calm and sleeping. --09:06 Ni Becerra R.N. 09:13 11/26/2016 Site #1 started via IV in the left wrist with an 18g angiocath, with aseptic technique and good blood return; one attempt. Saline lock flushed with 10 mL saline. --09:23 Ni Becerra R.N. 09:42 11/26/2016 Started bag #1 1000 mL IV Fluids IV NS (Saline); bolus of 500 mL over 30 minute(s) then at 250 mL/hr with Folic Acid [IVPB] 1mg, Multivitamin [IVPB] 10unit dose and Thiamine [IVP] 100mg over 2 hour(s) via site #1 via IV pump. Allergies verified and confirmed 5 rights. IV patency established. IV site checked: no pain, redness, or swelling. IV flushed thoroughly pre- and post-medication administration. Completed per protocol. --09:42 Ni Becerra R.N. 10:28 11/26/16. Cardiac rhythm: sinus tachycardia. --10:28 Elroy Merritt R.N. 10:27 11/26/16. BP: 118/82. HR: 102. RR: 12. O2 saturation: 95% on room air. Temp: 97.7 F (oral). Pain level now: 03/18. Additional comments: 03/18 abd pain. --10:28 Elroy Merritt R.N. 11:04 11/26/2016 Site #1 removed. Catheter intact. Bandage applied (IV pulled out by pt). --11:14 Ni Becerra R.N. 11:08 11/26/2016 IV Fluids IV NS Discontinued: bag #1 STOPPED. Total amount infused: 800 mL. IV patency established. IV site checked: no pain, redness, or swelling. IV flushed thoroughly. (pt pulled IV out). --11:13 Ni Becerra R.N. 11:13 11/26/2016 Pantoprazole Sodium PO Tablets 40 mg given. Allergies verified and confirmed 5 rights. --11:13 Ni Becerra R.N. DISPOSITION / DISCHARGE 11:45 11/26/16. Departure time: 11:37. Condition at departure: improved and stable. Discharge instructions provided and reviewed with the patient and parent. Patient and parent verbalized understanding. Written instructions provided in Yi. The patient was discharged by the physician. He was discharged home and accompanied by parent. He left the Emergency Department ambulatory and via private vehicle. Parent driving. --11:45 Ni Becerra R.N. 11:44 11/26/16. BP: 122/77. HR: 90. RR: 16. O2 saturation: 98% on room air. Pain level now: 03/18. --11:45 Ni Becerra R.N. Locked/Released at 11/26/2016 13:49 by Ni Becerra R.N.
--- NOTE | 2016-11-26 10:57 | ED CLINICAL REPORT ---
Clinical Report - Physicians/Mid Levels [facility] [address] [place] [address] 11/26/2016 8:39 Patient: MAREN COVARRUBIAS Time Seen: 09:03. Arrived- By ambulance. Historian- patient and EMS personnel. History limited by intoxication. Physical Exam limited by intoxication. HISTORY OF PRESENT ILLNESS Chief Complaint: INTOXICATED. Symptoms started today. Duration of substance abuse- many years. Substances abused: Alcohol. Last drink consisted of liquor just prior to arrival. He is under influence in ED. No fever, chills or suicidal thoughts. He has had nausea. He has had burning abdominal pain (chronically). The pain is described as located in the epigastrium. The symptoms are described as severe. Recent medical care: The patient was seen recently by a health care provider. REVIEW OF SYSTEMS No chills, fever, sweats, calf pain or chest pain. No cough, difficulty breathing, pedal edema, palpitations or abdominal pain. No constipation, diarrhea, nausea, vomiting or urinary problems. All systems otherwise negative, except as recorded above. SOCIAL HISTORY Current every day heavy tobacco smoker (cigarette)- 1 pack per day. Heavy alcohol use; consumes a large amount of liquor daily. Patient is a longstanding alcoholic. Under the influence in E.D. Has place to stay. FAMILY HISTORY Denies family medical history. ADDITIONAL NOTES The nursing notes have been reviewed. PHYSICAL EXAM Vital Signs: 11/26/2016 08:42 BP: 124/85. HR: 103. RR: 20. O2 saturation: 95%. Temp: 98.0 F. Have been reviewed. Appearance: Alert. The patient's speech is slurred and odor of alcohol is present. Head: Head atraumatic. Eyes: Pupils equal, round and reactive to light. ENT: Airway intact. Moist mucous membranes. Pharynx normal. Neck: Normal inspection. Neck supple. No meningeal signs or carotid bruit. CVS: Normal heart rate and rhythm. Heart sounds normal. Respiratory: No respiratory distress. Decreased air movement. No rales, wheezes or rhonchi. Abdomen: Soft. Mild tenderness in the epigastric area. No organomegaly. Back: Normal inspection. Skin: Skin warm and dry. Normal skin color. No rash. Normal skin turgor. Extremities: Extremities exhibit normal ROM. No calf tenderness. No lower extremity edema. Neuro: Alert. LABS, X-RAYS, AND EKG Laboratory Tests: CBC w Diff: (RENAY: 11/26/2016 09:20) ( [facility] 11/26/2016 09:28) Final results Test Result Flag Units (Reference) WHITE BLOOD COUNT 8.0 K/uL (4.5-11.5) RED BLOOD COUNT 5.55 M/uL (4.50-5.90) HEMOGLOBIN 18.0 H gm/dL (13.5-17.5) HEMATOCRIT 54.3 H % (41.0-53.0) MEAN CELL VOLUME 98 fL (80-100) MEAN CORPUSCULAR HGB 32 pg (26-34) MEAN CORPUSCULAR HGB CONC 33 g/dL (31-37) RED CELL DISTRIBUTION WIDTH 15.4 H % (11.6-14.8) PLATELET COUNT 492 H K/uL (150-400) LYMPH % 15.9 L % (25-40) MONO % 6.9 % (3-14) GRANULOCYTE % 77.2 PT with INR: (RENAY: 11/26/2016 09:20) ( [facility] 11/26/2016 09:36) Final results Test Result Flag Units (Reference) INR 1.0 (0.8-1.2) Low Intensity Therapy: INR 1.5-2.0 PT range 18.5-23.1Mod.Intensity Therapy: INR 2.0-3.0 PT range 23.1-31.5High Intensity Therapy: INR 2.5-3.5 PT range 27.4-35.5High Intensity Therapy 2: INR 3.0-4.0 PT range 31.5-39.3 Ammonia Level: (RENAY: 11/26/2016 09:20) ( [facility] 11/26/2016 09:56) Final results Test Result Flag Units (Reference) AMMONIA 19 umol/L (11-32) CHEM 13 PANEL: (RENAY: 11/26/2016 09:20) ( MsgRcvd 11/26/2016 10:39) Final results Test Result Flag Units (Reference) GLUCOSE 120 H mg/dL (70-110) BUN 7 mg/dL (7-18) CREATININE 0.7 mg/dL (0.6-1.3) Estimated GFR >60 mL/min Estimated GFR- >60 mL/min Note: Persistent reduction over 3 months in eGFR<60 mL/min/1.73 m2 defines CKD. Patients with eGFR values>=60 mL/min/1.73 m2 may also have CKD if evidence ofpersistent proteinuria. Additional information may be foundat www.kidney.org. SODIUM 146 H mmol/L (136-145) POTASSIUM 3.9 mmol/L (3.5-5.1) CHLORIDE 107 mmol/L (98-107) CARBON DIOXIDE 24 mmol/L (21-32) CALCIUM 8.3 L mg/dL (8.5-10.1) TOTAL PROTEIN 7.4 g/dL (6.4-8.2) ALBUMIN 3.6 g/dL (3.3-5.0) BILIRUBIN, TOTAL 0.4 mg/dL (0.0-1.0) ALKALINE PHOSPHATASE 123 H U/L (46-116) AST (SGOT) 49 H U/L (15-37) ALT (SGPT) 57 U/L (12-78) CPK 656 H U/L (24-260) MAGNESIUM 2.4 mg/dL (1.8-2.4) CK-MB 2.2 ng/mL (0.5-3.2) %CKMB 0.3 % (0.0-4.0) TROPONIN I <0.05 ng/mL (0.00-1.5) TROPONIN REFERENCE RANGE:<0.1 NEGATIVE0.1-1.5 INDETERMINANT>1.5 POSITIVE LIPASE 326 U/L (73-393) AMYLASE 71 U/L (25-115) . PROGRESS AND PROCEDURES Course of Care: Patient is stable. Patient/family counseled. Old medical records reviewed. Disposition: Discharged. Condition: stable. CLINICAL IMPRESSION Alcohol intoxication with alcohol dependence. Substance abuse problems: abuse of alcohol. Substance dependence problems: dependence on alcohol. Chronic alcoholic gastritis INSTRUCTIONS Stay with responsible adult family member (or other responsible adult). No alcohol. Seek medical help to quit drinking. Warnings: Further evaluation is necessary. GENERAL WARNINGS: Return or contact your physician immediately if your condition worsens or changes unexpectedly, if not improving as expected, or if other problems arise. Understanding of the discharge instructions verbalized by patient. Follow-up with: [facility], , , [address], , [place], [address] Follow up tomorrow. Call for an appointment. (Electronically signed by Godwin Yarbrough MD 11/26/2016 11:44)
--- NOTE | 2016-11-26 10:57 | ED CLINICAL REPORT ---
Clinical Report - Physicians/Mid Levels [facility] [address] [place] [address] 11/26/2016 8:39 Patient: MAREN COVARRUBIAS Time Seen: 09:03. Arrived- By ambulance. Historian- patient and EMS personnel. History limited by intoxication. Physical Exam limited by intoxication. HISTORY OF PRESENT ILLNESS Chief Complaint: INTOXICATED. Symptoms started today. Duration of substance abuse- many years. Substances abused: Alcohol. Last drink consisted of liquor just prior to arrival. He is under influence in ED. No fever, chills or suicidal thoughts. He has had nausea. He has had burning abdominal pain (chronically). The pain is described as located in the epigastrium. The symptoms are described as severe. Recent medical care: The patient was seen recently by a health care provider. REVIEW OF SYSTEMS No chills, fever, sweats, calf pain or chest pain. No cough, difficulty breathing, pedal edema, palpitations or abdominal pain. No constipation, diarrhea, nausea, vomiting or urinary problems. All systems otherwise negative, except as recorded above. SOCIAL HISTORY Current every day heavy tobacco smoker (cigarette)- 1 pack per day. Heavy alcohol use; consumes a large amount of liquor daily. Patient is a longstanding alcoholic. Under the influence in E.D. Has place to stay. FAMILY HISTORY Denies family medical history. ADDITIONAL NOTES The nursing notes have been reviewed. PHYSICAL EXAM Vital Signs: 11/26/2016 08:42 BP: 124/85. HR: 103. RR: 20. O2 saturation: 95%. Temp: 98.0 F. Have been reviewed. Appearance: Alert. The patient's speech is slurred and odor of alcohol is present. Head: Head atraumatic. Eyes: Pupils equal, round and reactive to light. ENT: Airway intact. Moist mucous membranes. Pharynx normal. Neck: Normal inspection. Neck supple. No meningeal signs or carotid bruit. CVS: Normal heart rate and rhythm. Heart sounds normal. Respiratory: No respiratory distress. Decreased air movement. No rales, wheezes or rhonchi. Abdomen: Soft. Mild tenderness in the epigastric area. No organomegaly. Back: Normal inspection. Skin: Skin warm and dry. Normal skin color. No rash. Normal skin turgor. Extremities: Extremities exhibit normal ROM. No calf tenderness. No lower extremity edema. Neuro: Alert. LABS, X-RAYS, AND EKG Laboratory Tests: CBC w Diff: (RENAY: 11/26/2016 09:20) ( [facility] 11/26/2016 09:28) Final results Test Result Flag Units (Reference) WHITE BLOOD COUNT 8.0 K/uL (4.5-11.5) RED BLOOD COUNT 5.55 M/uL (4.50-5.90) HEMOGLOBIN 18.0 H gm/dL (13.5-17.5) HEMATOCRIT 54.3 H % (41.0-53.0) MEAN CELL VOLUME 98 fL (80-100) MEAN CORPUSCULAR HGB 32 pg (26-34) MEAN CORPUSCULAR HGB CONC 33 g/dL (31-37) RED CELL DISTRIBUTION WIDTH 15.4 H % (11.6-14.8) PLATELET COUNT 492 H K/uL (150-400) LYMPH % 15.9 L % (25-40) MONO % 6.9 % (3-14) GRANULOCYTE % 77.2 PT with INR: (RENAY: 11/26/2016 09:20) ( [facility] 11/26/2016 09:36) Final results Test Result Flag Units (Reference) INR 1.0 (0.8-1.2) Low Intensity Therapy: INR 1.5-2.0 PT range 18.5-23.1Mod.Intensity Therapy: INR 2.0-3.0 PT range 23.1-31.5High Intensity Therapy: INR 2.5-3.5 PT range 27.4-35.5High Intensity Therapy 2: INR 3.0-4.0 PT range 31.5-39.3 Ammonia Level: (RENAY: 11/26/2016 09:20) ( [facility] 11/26/2016 09:56) Final results Test Result Flag Units (Reference) AMMONIA 19 umol/L (11-32) CHEM 13 PANEL: (RENAY: 11/26/2016 09:20) ( MsgRcvd 11/26/2016 10:39) Final results Test Result Flag Units (Reference) GLUCOSE 120 H mg/dL (70-110) BUN 7 mg/dL (7-18) CREATININE 0.7 mg/dL (0.6-1.3) Estimated GFR >60 mL/min Estimated GFR- >60 mL/min Note: Persistent reduction over 3 months in eGFR<60 mL/min/1.73 m2 defines CKD. Patients with eGFR values>=60 mL/min/1.73 m2 may also have CKD if evidence ofpersistent proteinuria. Additional information may be foundat www.kidney.org. SODIUM 146 H mmol/L (136-145) POTASSIUM 3.9 mmol/L (3.5-5.1) CHLORIDE 107 mmol/L (98-107) CARBON DIOXIDE 24 mmol/L (21-32) CALCIUM 8.3 L mg/dL (8.5-10.1) TOTAL PROTEIN 7.4 g/dL (6.4-8.2) ALBUMIN 3.6 g/dL (3.3-5.0) BILIRUBIN, TOTAL 0.4 mg/dL (0.0-1.0) ALKALINE PHOSPHATASE 123 H U/L (46-116) AST (SGOT) 49 H U/L (15-37) ALT (SGPT) 57 U/L (12-78) CPK 656 H U/L (24-260) MAGNESIUM 2.4 mg/dL (1.8-2.4) CK-MB 2.2 ng/mL (0.5-3.2) %CKMB 0.3 % (0.0-4.0) TROPONIN I <0.05 ng/mL (0.00-1.5) TROPONIN REFERENCE RANGE:<0.1 NEGATIVE0.1-1.5 INDETERMINANT>1.5 POSITIVE LIPASE 326 U/L (73-393) AMYLASE 71 U/L (25-115) . PROGRESS AND PROCEDURES Course of Care: Patient is stable. Patient/family counseled. Old medical records reviewed. Disposition: Discharged. Condition: stable. CLINICAL IMPRESSION Alcohol intoxication with alcohol dependence. Substance abuse problems: abuse of alcohol. Substance dependence problems: dependence on alcohol. Chronic alcoholic gastritis INSTRUCTIONS Stay with responsible adult family member (or other responsible adult). No alcohol. Seek medical help to quit drinking. Warnings: Further evaluation is necessary. GENERAL WARNINGS: Return or contact your physician immediately if your condition worsens or changes unexpectedly, if not improving as expected, or if other problems arise. Understanding of the discharge instructions verbalized by patient. Follow-up with: [facility], , , [address], , [place], [address] Follow up tomorrow. Call for an appointment. (Electronically signed by Godwin Yarbrough MD 11/26/2016 11:44)
--- NOTE | 2016-11-26 10:57 | ED ORDER SUMMARY ---
..... Patient: MAREN COVARRUBIAS OrderSheet [facility] VisitID: [id number] [place] [address] 56y, M Registration Date/Time: 11/26/2016 ORDER SHEET Weight: 58.9 kg (estimated) Allergies: NKDA GENERAL ORDERS: Cardiac Panel Stat (09:11/26/2016 Paul THOMPSON) (Ack 9:06 PWeiler ER Tech1) (9:18 KWilliams R.N.) Ammonia Level Urgent (09:11/26/2016 Paul THOMPSON) (Ack 9:06 PWeiler ER Tech1) (9:18 KWilliams R.N.) PT with INR Urgent (09:11/26/2016 Paul THOMPSON) (Ack 9:06 PWeiler ER Tech1) (9:18 KWilliams R.N.) Amylase Urgent (10:20 11/26/2016 Arron THOMPSON) (Ack 10:26 PWeiler ER Tech1) (11:00 PWeiler ER Tech1) Lipase Urgent (10:20 11/26/2016 Arron THOMPSON) (Ack 10:26 PWeiler ER Tech1) (11:00 PWeiler ER Tech1) MEDICATION ORDERS: Pantoprazole Sodium PO 40 mg (NOW) (11:08 11/26/2016 Arron THOMPSON) (11:13 KWilliams R.N.) IV FLUIDS: IV NS with Normal Saline 1 Liter, Multivitamin Concentrate Intravenous 1 amp/L, Thiamine HCl 100 mg/L: initial bolus 500 mL (1000 mL/hr), then 250 mL/hr for 2h (NOW); Routine (09:03 11/26/2016 Paul THOMPSON) (Ack 9:21 KWilliams R.N.) (9:42 KWilliams R.N.) Protonix IVP 40mg 40 mg (Mix in NS 10ml over 2min) (11:03 11/26/2016 Arron THOMPSON) (Cancelled: Other11:07 Arron THOMPSON) ORDER SHEET NOTES: [Electronically signed by Godwin Yarbrough MD (11:44 11/26/2016)] [Electronically signed by Ni Becerra R.N. (13:49 11/26/2016)] [Electronically locked/signed by Ni Becerra R.N. (13:49 11/26/2016)]
--- NOTE | 2016-11-26 10:57 | ED ORDER SUMMARY ---
..... Patient: MAREN COVARRUBIAS OrderSheet [facility] VisitID: [id number] [place] [address] 56y, M Registration Date/Time: 11/26/2016 ORDER SHEET Weight: 58.9 kg (estimated) Allergies: NKDA GENERAL ORDERS: Cardiac Panel Stat (09:11/26/2016 Paul THOMPSON) (Ack 9:06 PWeiler ER Tech1) (9:18 KWilliams R.N.) Ammonia Level Urgent (09:11/26/2016 Paul THOMPSON) (Ack 9:06 PWeiler ER Tech1) (9:18 KWilliams R.N.) PT with INR Urgent (09:11/26/2016 Paul THOMPSON) (Ack 9:06 PWeiler ER Tech1) (9:18 KWilliams R.N.) Amylase Urgent (10:20 11/26/2016 Arron THOMPSON) (Ack 10:26 PWeiler ER Tech1) (11:00 PWeiler ER Tech1) Lipase Urgent (10:20 11/26/2016 Arron THOMPSON) (Ack 10:26 PWeiler ER Tech1) (11:00 PWeiler ER Tech1) MEDICATION ORDERS: Pantoprazole Sodium PO 40 mg (NOW) (11:08 11/26/2016 Arron THOMPSON) (11:13 KWilliams R.N.) IV FLUIDS: IV NS with Normal Saline 1 Liter, Multivitamin Concentrate Intravenous 1 amp/L, Thiamine HCl 100 mg/L: initial bolus 500 mL (1000 mL/hr), then 250 mL/hr for 2h (NOW); Routine (09:03 11/26/2016 Paul THOMPSON) (Ack 9:21 KWilliams R.N.) (9:42 KWilliams R.N.) Protonix IVP 40mg 40 mg (Mix in NS 10ml over 2min) (11:03 11/26/2016 Arron THOMPSON) (Cancelled: Other11:07 Arron THOMPSON) ORDER SHEET NOTES: [Electronically signed by Godwin Yarbrough MD (11:44 11/26/2016)] [Electronically signed by Ni Becerra R.N. (13:49 11/26/2016)] [Electronically locked/signed by Ni Becerra R.N. (13:49 11/26/2016)]
--- NOTE | 2016-11-26 13:49 | ED MED RECONCILIATION SUMMARY ---
Patient: MAREN COVARRUBIAS Medication Reconciliation Report [facility] VisitID: [id number] [address] [place] [address] 56y, M Registration Date/Time: 11/26/2016 Weight: 58.9 kg Height/Length: 65 in. BMI: 21.6 ALLERGIES: NKDA The patient's Home Medications are listed below: THE FOLLOWING MEDICATIONS NEED TO BE RECONCILED: Gabapentin Oral 300 mg, 2x a day PriLOSEC Oral The source(s) of the original Home Medication information: patient The following Medications were given to the patient in the Emergency Department: IV NS IV Fluids bolus 500 mL over 30 minute(s), then 250 mL/hr with Folic Acid [IVPB] 1 mg, Multivitamin [IVPB] 10 unit dose and Thiamine [IVP] 100 mg, administered: 11/26/2016 9:42:00 AM Pantoprazole Sodium [PO] PO 40 mg, administered: 11/26/2016 11:13:00 AM The following Medications were prescribed to the patient: None.
--- NOTE | 2016-11-26 13:49 | ED MAR SUMMARY ---
..... Medication Administration Record [facility] [address] [place] [address] Patient: MAREN COVARRUBIAS Visit ID: [id number] 56y, M Weight: 58.9 kg Height/Length: 65 in BMI: 21.6 ALLERGIES: NKDA Start 09:42 11/26/2016 Ni Becerra R.N., Stop 11:08 11/26/2016 Ni Becerra R.N. Medication Administered: IV NS (SALINE), Dose: IV Fluids over 2 hour(s), With: FOLIC ACID [IVPB] 1 mg; MULTIVITAMIN [IVPB] 10 unit dose; THIAMINE [IVP] 100 mg, Rate: 250 mL/hr, Bolus: 500 mL over 30 minute(s), Dispensed: 1000 mL bag, Site: #1 left wrist. Medication Ordered: IV NS with Normal Saline 1 Liter, Multivitamin Concentrate Intravenous 1 amp/L, Thiamine HCl 100 mg/L: initial bolus 500 mL (1000 mL/hr), then 250 mL/hr for 2h (NOW); Routine. Given 11:13 11/26/2016 Ni Becerra R.N. Medication Administered: PANTOPRAZOLE SODIUM [PO], Dose: 40 mg Tablets PO. Medication Ordered: Pantoprazole Sodium PO 40 mg (NOW).
--- NOTE | 2016-11-26 13:49 | ED DISCHARGE INSTRUCTIONS ---
Patient: MAREN COVARRUBIAS General Instructions [facility] VisitID: [id number] [address] [place] [address] 56y, M Registration Date/Time: 11/26/2016 Alcohol intoxication with alcohol dependence. Substance abuse problems: abuse of alcohol. Substance dependence problems: dependence on alcohol. Chronic alcoholic gastritis INSTRUCTIONS Stay with responsible adult family member (or other responsible adult). No alcohol. Seek medical help to quit drinking. Warnings: Further evaluation is necessary. GENERAL WARNINGS: Return or contact your physician immediately if your condition worsens or changes unexpectedly, if not improving as expected, or if other problems arise. Understanding of the discharge instructions verbalized by patient. Follow-up with: [facility], , , [address], [place], [address] Follow up tomorrow. Call for an appointment. ADDITIONAL INFORMATION Alcohol Intoxication Alcohol intoxication occurs when you drink alcohol faster than your liver can remove it from your system. Alcohol intoxication affects your judgment and coordination. Very high blood alcohol levels can cause coma, very slow breathing and even . If you drink alcohol every day, this may gradually cause permanent damage to your liver, brain, heart, pancreas and other organs. Alcohol use during may cause permanent damage to the growing baby. Home Care: Do not drink any more alcohol. DO NOT DRIVE until all effects of the alcohol have worn off. Get lots of rest over the next few days. Drink plenty of water and other non-alcoholic liquids. Try to eat regular meals. If you have been drinking heavily on a daily basis, you may go through alcohol withdrawl. This is also called the shakes or DTs. The usual symptoms last 3 to 4 days and may include nervousness, shakiness, nausea, sweating or sleeplessness. During this time, it is best that you stay with family or friends who can help and support you. You can also admit yourself to a residential detox program. If your symptoms are severe, contact your doctor for medicines to help. Follow Up: If alcohol is causing a problem in your life, these and other organizations can help you: Alcoholics Anonymous offers support through a self-help fellowship. There are no dues or fees. See the Yellow Pages and call for time and place of meetings. www.aa.org [employer] offers support to families of alcohol users. 403.397.4390 www.al-anon.org National [place] On Alcoholism And Drug Dependence 942-908-9684 www.ncadd.org There are also inpatient or residential alcohol detox programs. Check the Internet or phonebook Yellow Pages under Drug Abuse & Treatment Centers. Get Prompt Medical Attention if any of the following occur: there) Gastritis (Adult) Gastritis is an irritation of the stomach lining. It can be acute (recent) or chronic (lasting a long time). Gastritis can be caused by overuse of alcohol or anti-inflammatory medications (such as aspirin, ibuprofen, or prednisone). H pyloriinfection can also cause chronic gastritis. Gastritis can cause a dull ache or burning pain in the upper abdomen. Other symptoms include nausea, vomiting, loss of appetite, and belching or bloating. Blood in the vomit or stools (red or black) is a sign of bleeding in the stomach. This requires immediate medical attention. Tests for H pyloriare used to screen for bacterial infection. If no infection is found, gastritis can be treated by stopping the cause and treating with antacids plus an acid josé medication. If H pylori infection is found, antibiotics will also be prescribed. Persons 55 years and older may undergo other tests before treatment is started. Two common tests are used to evaluate your symptoms. An upper GI series is an x-ray taken after you drink a chalky liquid called barium. This coats the stomach and allows the doctor to view any problems in the stomach on the x-ray. Another test is called endoscopy, during which a long thin tube called an endoscope is passed down your throat to the stomach. A camera at the end of the scope allows the doctor to view inside the stomach to check the cause of your symptoms. Home Care: Take the prescribed acid josé medication for the full course of treatment even if you begin to feel better sooner. This medication can take up to several days to fully control your symptoms. If you cant afford the prescribed medication, you can try dkrx-vbf-slrmvnt acid blockers, such as Pepcid AC, Tagamet, Zantac, or Aciphex. If these do not relieve your symptoms, a stronger acid-josé can be tried, such as Prilosec OTC. If you have been prescribed an antibiotic to treat H pyloriinfection, finish the full course of medication. Do so even if you begin to feel better sooner. If you stop the medication too soon, the infection can return and be harder to treat. You can use antacids, such as Tums, Rolaids, Mylanta, or Maalox, for pain. This will be useful the first few days after starting acid blockers when the blockers havent started working yet. Follow the directions on the label. Liquid antacids may work better than tablets. Note that antacids can interfere with absorption of certain medications. Specifically, do not take Tagamet (cimetidine), Zantac (ranitidine), or Carafate (sucralfate) within 1 hour of taking an antacid. Talk with your pharmacist if you have any questions. Symptoms of gastritis can be worsened by certain foods. Limit or avoid fatty, fried, and spicy foods, as well as coffee, chocolate, mint, and foods with high acid content such as tomatoes and citrus fruit and juices (orange, grapefruit, lemon). Avoid alcohol, caffeine, and tobacco, which can delay healing. Avoid aspirin and anti-inflammatory medications such as ibuprofen (Advil, Motrin) and naproxen (Naprosyn, Aleve). Acetaminophen (Tylenol) is safe to use. Do not take more than the amount listed on the label. Follow Up with your doctor, or as advised by our staff. Further testing may be needed. If you do not improve over the next 4 days, contact your doctor. If you had an x-ray, CT scan, or ECG (electrocardiogram), it will be reviewed by a specialist. Youll be notified of any new findings that affect your care. Get Prompt Medical Attention if any of the following occur: Stomach pain gets worse or moves to the lower right abdomen (appendix area) Chest pain appears or gets worse, or spreads to the back, neck, shoulder, or arm Frequent vomiting (cant keep down liquids) Blood in the stool or vomit (red or black in color) Feeling weak or dizzy, fainting, or trouble breathing Fever of 100.4F (38C) or higher, or as directed by your healthcare provider You have been given the following additional information: Alcohol Intoxication Gastritis (Adult) Stay with responsible adult family member (or other responsible adult). (Electronically signed by Godwin Yarbrough MD 11/26/2016 11:44)
--- NOTE | 2016-11-26 13:49 | ED MAR SUMMARY ---
..... Medication Administration Record [facility] [address] [place] [address] Patient: MAREN COVARRUBIAS Visit ID: [id number] 56y, M Weight: 58.9 kg Height/Length: 65 in BMI: 21.6 ALLERGIES: NKDA Start 09:42 11/26/2016 Ni Becerra R.N., Stop 11:08 11/26/2016 Ni Becerra R.N. Medication Administered: IV NS (SALINE), Dose: IV Fluids over 2 hour(s), With: FOLIC ACID [IVPB] 1 mg; MULTIVITAMIN [IVPB] 10 unit dose; THIAMINE [IVP] 100 mg, Rate: 250 mL/hr, Bolus: 500 mL over 30 minute(s), Dispensed: 1000 mL bag, Site: #1 left wrist. Medication Ordered: IV NS with Normal Saline 1 Liter, Multivitamin Concentrate Intravenous 1 amp/L, Thiamine HCl 100 mg/L: initial bolus 500 mL (1000 mL/hr), then 250 mL/hr for 2h (NOW); Routine. Given 11:13 11/26/2016 Ni Becerra R.N. Medication Administered: PANTOPRAZOLE SODIUM [PO], Dose: 40 mg Tablets PO. Medication Ordered: Pantoprazole Sodium PO 40 mg (NOW).
--- NOTE | 2016-11-26 13:49 | ED DISCHARGE INSTRUCTIONS ---
Patient: MAREN COVARRUBIAS General Instructions [facility] VisitID: [id number] [address] [place] [address] 56y, M Registration Date/Time: 11/26/2016 Alcohol intoxication with alcohol dependence. Substance abuse problems: abuse of alcohol. Substance dependence problems: dependence on alcohol. Chronic alcoholic gastritis INSTRUCTIONS Stay with responsible adult family member (or other responsible adult). No alcohol. Seek medical help to quit drinking. Warnings: Further evaluation is necessary. GENERAL WARNINGS: Return or contact your physician immediately if your condition worsens or changes unexpectedly, if not improving as expected, or if other problems arise. Understanding of the discharge instructions verbalized by patient. Follow-up with: [facility], , , [address], [place], [address] Follow up tomorrow. Call for an appointment. ADDITIONAL INFORMATION Alcohol Intoxication Alcohol intoxication occurs when you drink alcohol faster than your liver can remove it from your system. Alcohol intoxication affects your judgment and coordination. Very high blood alcohol levels can cause coma, very slow breathing and even . If you drink alcohol every day, this may gradually cause permanent damage to your liver, brain, heart, pancreas and other organs. Alcohol use during may cause permanent damage to the growing baby. Home Care: Do not drink any more alcohol. DO NOT DRIVE until all effects of the alcohol have worn off. Get lots of rest over the next few days. Drink plenty of water and other non-alcoholic liquids. Try to eat regular meals. If you have been drinking heavily on a daily basis, you may go through alcohol withdrawl. This is also called the shakes or DTs. The usual symptoms last 3 to 4 days and may include nervousness, shakiness, nausea, sweating or sleeplessness. During this time, it is best that you stay with family or friends who can help and support you. You can also admit yourself to a residential detox program. If your symptoms are severe, contact your doctor for medicines to help. Follow Up: If alcohol is causing a problem in your life, these and other organizations can help you: Alcoholics Anonymous offers support through a self-help fellowship. There are no dues or fees. See the Yellow Pages and call for time and place of meetings. www.aa.org [employer] offers support to families of alcohol users. 806.575.9083 www.al-anon.org National [place] On Alcoholism And Drug Dependence 405-654-7311 www.ncadd.org There are also inpatient or residential alcohol detox programs. Check the Internet or phonebook Yellow Pages under Drug Abuse & Treatment Centers. Get Prompt Medical Attention if any of the following occur: there) Gastritis (Adult) Gastritis is an irritation of the stomach lining. It can be acute (recent) or chronic (lasting a long time). Gastritis can be caused by overuse of alcohol or anti-inflammatory medications (such as aspirin, ibuprofen, or prednisone). H pyloriinfection can also cause chronic gastritis. Gastritis can cause a dull ache or burning pain in the upper abdomen. Other symptoms include nausea, vomiting, loss of appetite, and belching or bloating. Blood in the vomit or stools (red or black) is a sign of bleeding in the stomach. This requires immediate medical attention. Tests for H pyloriare used to screen for bacterial infection. If no infection is found, gastritis can be treated by stopping the cause and treating with antacids plus an acid josé medication. If H pylori infection is found, antibiotics will also be prescribed. Persons 55 years and older may undergo other tests before treatment is started. Two common tests are used to evaluate your symptoms. An upper GI series is an x-ray taken after you drink a chalky liquid called barium. This coats the stomach and allows the doctor to view any problems in the stomach on the x-ray. Another test is called endoscopy, during which a long thin tube called an endoscope is passed down your throat to the stomach. A camera at the end of the scope allows the doctor to view inside the stomach to check the cause of your symptoms. Home Care: Take the prescribed acid josé medication for the full course of treatment even if you begin to feel better sooner. This medication can take up to several days to fully control your symptoms. If you cant afford the prescribed medication, you can try inhk-nfm-bhpzdgk acid blockers, such as Pepcid AC, Tagamet, Zantac, or Aciphex. If these do not relieve your symptoms, a stronger acid-josé can be tried, such as Prilosec OTC. If you have been prescribed an antibiotic to treat H pyloriinfection, finish the full course of medication. Do so even if you begin to feel better sooner. If you stop the medication too soon, the infection can return and be harder to treat. You can use antacids, such as Tums, Rolaids, Mylanta, or Maalox, for pain. This will be useful the first few days after starting acid blockers when the blockers havent started working yet. Follow the directions on the label. Liquid antacids may work better than tablets. Note that antacids can interfere with absorption of certain medications. Specifically, do not take Tagamet (cimetidine), Zantac (ranitidine), or Carafate (sucralfate) within 1 hour of taking an antacid. Talk with your pharmacist if you have any questions. Symptoms of gastritis can be worsened by certain foods. Limit or avoid fatty, fried, and spicy foods, as well as coffee, chocolate, mint, and foods with high acid content such as tomatoes and citrus fruit and juices (orange, grapefruit, lemon). Avoid alcohol, caffeine, and tobacco, which can delay healing. Avoid aspirin and anti-inflammatory medications such as ibuprofen (Advil, Motrin) and naproxen (Naprosyn, Aleve). Acetaminophen (Tylenol) is safe to use. Do not take more than the amount listed on the label. Follow Up with your doctor, or as advised by our staff. Further testing may be needed. If you do not improve over the next 4 days, contact your doctor. If you had an x-ray, CT scan, or ECG (electrocardiogram), it will be reviewed by a specialist. Youll be notified of any new findings that affect your care. Get Prompt Medical Attention if any of the following occur: Stomach pain gets worse or moves to the lower right abdomen (appendix area) Chest pain appears or gets worse, or spreads to the back, neck, shoulder, or arm Frequent vomiting (cant keep down liquids) Blood in the stool or vomit (red or black in color) Feeling weak or dizzy, fainting, or trouble breathing Fever of 100.4F (38C) or higher, or as directed by your healthcare provider You have been given the following additional information: Alcohol Intoxication Gastritis (Adult) Stay with responsible adult family member (or other responsible adult). (Electronically signed by Godwin Yarbrough MD 11/26/2016 11:44)
--- NOTE | 2016-11-26 13:49 | ED MED RECONCILIATION SUMMARY ---
Patient: MAREN COVARRUBIAS Medication Reconciliation Report [facility] VisitID: [id number] [address] [place] [address] 56y, M Registration Date/Time: 11/26/2016 Weight: 58.9 kg Height/Length: 65 in. BMI: 21.6 ALLERGIES: NKDA The patient's Home Medications are listed below: THE FOLLOWING MEDICATIONS NEED TO BE RECONCILED: Gabapentin Oral 300 mg, 2x a day PriLOSEC Oral The source(s) of the original Home Medication information: patient The following Medications were given to the patient in the Emergency Department: IV NS IV Fluids bolus 500 mL over 30 minute(s), then 250 mL/hr with Folic Acid [IVPB] 1 mg, Multivitamin [IVPB] 10 unit dose and Thiamine [IVP] 100 mg, administered: 11/26/2016 9:42:00 AM Pantoprazole Sodium [PO] PO 40 mg, administered: 11/26/2016 11:13:00 AM The following Medications were prescribed to the patient: None.
== END 2016-11-26 11:37 | disposition home or self-care (01) ==
LOC: ED SRH 08:33
DX: F10.220 Alcohol dependence with intoxication, uncomplicated (principal); K29.20 Alcoholic gastritis without bleeding; F17.210 Nicotine dependence, cigarettes, uncomplicated; I10 Essential (primary) hypertension; J44.9 Chronic obstructive pulmonary disease, unspecified
CPT/HCPCS: 90074; 90100; 90616; 90617; 91588; 92235; 92530; 92610; 92720; 94060; 95059

== ENCOUNTER 2016-12-23 03:32 | Emergency (ER) | payer OTHER ==
--- NOTE | 2016-12-23 07:02 | ED NURSING NOTES ---
Clinical Report - Nurses [facility] [place] [address] 12/23/2016 3:31 Patient: MAREN COVARRUBIAS TRIAGE Triage time 03:37 Dec 23 2016. Acuity: LEVEL 3. Chief Complaint: SUBSTANCE ABUSE. 03:42 12/23/16. SEPSIS SCREEN: Sepsis Screen: negative. Negative (no infection suspected/documented). Heart rate greater than 90. NEETU COMA SCORE: [place] Coma Scale: 15- eyes open spontaneously (4); best verbal response- oriented x 4 (5); best motor response- obeys commands (6). --03:42 Hermelinda Bhardwaj 03:37 12/23/16. BP: 138/100. HR: 110. RR: 20. O2 saturation: 96% on room air. Temp: 98.9 F (oral). Pain level now: 01/16. --03:42 Hermelinda Bhardwaj. Weight: 68 kg stated. Height/Length: 65 inches Per Patient. BMI: 25. --03:39 Hermelinda Bhardwaj. Medications Gabapentin Oral 300 mg, 2x a day. PriLOSEC Oral. --03:41 Hermelinda Bhardwaj. Allergies NKDA. --03:41 Hermelinda Bhardwaj. Medication/allergy information source: the patient. --03:42 Hermelinda Bhardwaj. History Arrived by private vehicle. Historian: patient. Accompanied by family. This is a recurrent problem. ( Patient reports that he has been drinking a fifth of alcohol a day for years now. He reports "I need something to calm down". He states that he needs ativan. He reports he is scheduled to go to [place] tomorrow morning for treatment but they will not take him if he is intoxicated.). PAST MEDICAL HX: Immunizations: up-to-date. SOCIAL HX: Heavy tobacco smoker (cigar)- 1 pack per day. Heavy alcohol use; consumes a large amount of liquor daily. Patient is a longstanding alcoholic. Patient smells of ETOH in the emergency department. No infectious disease exposure. ABUSE ASSESSMENT: No report of abuse. NUTRITIONAL RISK ASSESSMENT: The nutritional risk assessment revealed no deficiencies. FUNCTIONAL ASSESSMENT: Functional assessment: no impairments noted. LEARNING NEEDS ASSESSMENT: The learning needs assessment revealed no barriers. FALL RISK ASSESSMENT: Fall risk assessment completed. Risk factors identified include patient impairment of mobility and cognition. Fall interventions initiated. Patient placed on stretcher. Side rails up x2. Brakes on Bed in low position. Patient visible from nurses' station. Family at bedside. Call light in reach of patient. Instructed not to get up without assistance. SKIN INTEGRITY ASSESSMENT: Skin integrity risk assessment completed. No skin integrity risk identified. --03:42 Hermelinda Bhardwaj. PROBLEMS: Hematuria. Fall. Head Injury. Hypertension. Alcoholism. Abdominal Pain. Alcohol abuse. Suicidal Ideation. ETOH. COPD - Chronic Obstructive Pulmonary Disease. Seizure. Stomach Ulcers. Lifestyle / Substance Problems. Gastritis. Bipolar Disorder. Substance Abuse. Alcohol Intoxication. Sinus Tachycardia. Alcohol Withdrawal. Hypokalemia. Immunizations. --03:42 Hermelinda Bhardwaj. ADDITIONAL SURGERIES: Endoscopy. Eye surgery. Gastric surgery. Leg surgery. --03:42 Hermelinda Bhardwaj. Interventions ID band on patient. To treatment room. --03:42 Hermelinda Bhardwaj. PHYSICAL ASSESSMENT ( Patient reports blood in his stool). GENERAL / NEURO / PSYCH: Oriented X 4. He smells of alcohol and appears unkempt. Staggering gait. HEENT: Mucous membranes are pink. RESPIRATORY: Respirations not labored. CVS: Cardiac rhythm: sinus tachycardia. GI / : Abdominal tenderness diffusely. SKIN: Skin is warm and dry. --03:44 Hermelinda Bhardwaj. NURSING PROGRESS NOTES chief engineer's helper, pulse oximeter and NIBP monitor placed on patient; monitor alarms on. Patient gowned. Reassurance given to the patient and patient's family. Two patient identifiers checked. Call light placed in reach. Side rails up x 1. Bed placed in lowest position. Brakes of bed on. Patient ready for evaluation- chart flagged and ED physician notified. ( Patient and patients mother arguing at bedside. Patient reports coffee ground emesis and blood in his stool. Provider notified). --03:45 Hermelinda Bhardwaj 03:55 12/23/2016 Site #1 started via IV in the left antecubital space with an 20g angiocath, with aseptic technique and good blood return; one attempt. Blood drawn: rainbow set. Labeled in the presence of the patient and sent to the lab. Saline lock flushed with 10 mL saline. --03:55 Hermelinda Bhardwaj 04:03 12/23/16. BP: 118/88. HR: 102. RR: 20. O2 saturation: 96% on nasal cannula at 2 liters/minute. --04:04 Hermelinda Bhardwaj Critical value relayed to ED by Marian 04:Dec 23 2016. Critical value received by SHREE Cifuentes 04:Dec 23 2016. K: 2.9. Critical value read back. Verified patient ID. ED physician and charge nurse notifed of critical value. --04:17 Vane Roberto R.N. 04:29 12/23/2016 Started 20 meq of KCL (Potassium Chloride) IVPB in bag #1 100 mL; at 50 mL/hr over 2 hour(s) via site #1 via IV pump. Allergies verified and confirmed 5 rights. IV patency established. IV site checked: no pain, redness, or swelling. IV flushed thoroughly pre- and post-medication administration. --04:29 Hermelinda Bhardwaj 04:29 12/23/2016 Started bag #1 1000 mL IV Fluids IV NS (Saline); at 1000 mL/hr over 1 hour(s) via site #1 via IV pump. Allergies verified and confirmed 5 rights. IV patency established. IV site checked: no pain, redness, or swelling. IV flushed thoroughly pre- and post-medication administration. --04:29 Hermelinda Bhardwaj 04:30 12/23/2016 KCL (Potassium Chloride ER) PO Capsules 20 meq given. Allergies verified and confirmed 5 rights. --04:30 Hermelinda Bhardwaj The patient is resting quietly. --04:35 Hermelinda Bhardwaj 04:34 12/23/16. BP: 113/80. HR: 105. RR: 18. O2 saturation: 96% on nasal cannula at 2 liters/minute. --04:35 Hermelinda Bhardwaj The patient is sleeping. --05:24 Hermelinda Bhardwaj 05:24 12/23/16. BP: 130/80. HR: 100. RR: 16. O2 saturation: 96% on nasal cannula at 2 liters/minute. --05:24 Hermelinda Bhardwaj 05:51 12/23/16. BP: 126/90. HR: 86. RR: 18. O2 saturation: 96% on room air. --05:53 Hermelinda Bhardwaj 05:40 12/23/2016 IV Fluids IV NS Discontinued: bag #1 completed. Total amount infused: 1000 mL. IV patency established. IV site checked: no pain, redness, or swelling. IV flushed thoroughly. --07:01 Hermelinda Bhardwaj 06:45 12/23/2016 KCL IVPB Discontinued: bag #1 completed. Total amount infused: 100 mL. IV patency established. IV site checked: no pain, redness, or swelling. IV flushed thoroughly. --07:01 Hermelinda Bhardwaj. DISPOSITION / DISCHARGE 06:55 12/23/16. BP: 114/77. HR: 100. RR: 20. O2 saturation: 96% on room air. Temp: 98.9 F (oral). Pain level now: 0/10. --06:57 Hermelinda Bhardwaj 06:51 12/23/2016 Site #1 removed upon discharge. Catheter intact. Bandaid applied. --07:01 Hermelinda Bhardwaj 06:57 12/23/16. Condition at departure: stable. The goals identified in the patient's plan of care were met. Learning barriers present. Ability to learn limited by poor cooperation. Discharge instructions provided and reviewed with the patient and family. Reviewed need for increased fluid intake. Family verbalized understanding. Written instructions provided in Estonian. ( Do not drink. Follow up with your PCP in four days. Seek treatment for substance abuse, patient family reports that she will be staying with the patient to ensure his safety and reports she is making arrangements for his treatment.). The patient was discharged by the physician. He was discharged home and accompanied by family. He left the Emergency Department ambulatory and via private vehicle. Family member driving. FALL RISK ASSESSMENT: Fall risk assessment completed. No fall risk identified. --06:57 Hermelinda Bhardwaj. Locked/Released at 12/27/2016 6:10 by Hermelinda Bhardwaj,
--- NOTE | 2016-12-23 07:02 | ED ORDER SUMMARY ---
..... Patient: MAREN COVARRUBIAS OrderSheet [facility] VisitID: [id number] [address] [place] [address] 56y, M Registration Date/Time: 12/23/2016 ORDER SHEET Weight: 68.0 kg (stated) Allergies: NKDA GENERAL ORDERS: Slate Roofer (Continuous) (Tachycardia ) (03:53 12/23/2016 HSoule verbal order read back to Arron THOMPSON) (3:55 HSoule) CBC w Diff Urgent (03:54 12/23/2016 HSoule verbal order read back to Arron THOMPSON) (Ack 3:57 AMcQuoid ER Tech1) (3:57 AMcQuoid ER Tech1) CMP Urgent (03:54 12/23/2016 HSoule verbal order read back to Arron THOMPSON) (Ack 3:57 AMcQuoid ER Tech1) (3:57 AMcQuoid ER Tech1) PT with INR Urgent (03:54 12/23/2016 HSoule verbal order read back to Arron THOMPSON) (Ack 3:57 AMcQuoid ER Tech1) (3:57 AMcQuoid ER Tech1) Amylase Urgent (03:54 12/23/2016 HSoule verbal order read back to Arron THOMPSON) (Ack 3:57 AMcQuoid ER Tech1) (3:57 AMcQuoid ER Tech1) Lipase Urgent (03:54 12/23/2016 HSoule verbal order read back to Arron THOMPSON) (Ack 3:57 AMcQuoid ER Tech1) (3:57 AMcQuoid ER Tech1) Type & Screen Urgent (03:54 12/23/2016 HSoule verbal order read back to Arron THOMPSON) (Ack 3:57 AMcQuoid ER Tech1) (3:57 AMcQuoid ER Tech1) PTT Urgent (03:54 12/23/2016 HSoule verbal order read back to Arron THOMPSON) (Ack 3:57 AMcQuoid ER Tech1) (3:57 AMcQuoid ER Tech1) Oxygen (2 L/min) (NC) (03:54 12/23/2016 HSoule verbal order read back to Arron THOMPSON) (3:55 HSoule) Pulse oximeter (03:54 12/23/2016 HSoule verbal order read back to Arron THOMPSON) (3:55 HSoule) Ethyl Alcohol Urgent (03:59 12/23/2016 HSoule verbal order read back to Arron THOMPSON) (3:59 AMcQuoid ER Tech1) MEDICATION ORDERS: KCl PO 20 meq (NOW) (04:17 12/23/2016 Arron THOMPSON) (Ack 4:19 HSoule) (4:30 HSoule) IV FLUIDS: IV Saline Lock (03:54 12/23/2016 HSoule verbal order read back to Arron THOMPSON) (3:55 HSoule) KCl IV 20 meq/100mL (HIGH ALERT MEDICATION, NOW, Run no faster than 10 mEq/hr) (04:17 12/23/2016 Arron THOMPSON) (Ack 4:19 HSoule) (4:29 HSoule) IV NS with Normal Saline 1 Liter: initial bolus none -, then 1000 mL/hr for X1 (NOW) (04:29 12/23/2016 HSoule verbal order read back to Arron THOMPSON) (4:29 HSoule) ORDER SHEET NOTES: [Electronically signed by Godwin Yarbrough MD (09:42 12/24/2016)] [Electronically signed by Hermelinda Bhardwaj (06:10 12/27/2016)] [Electronically locked/signed by Hermelinda Bhardwaj (06:10 12/27/2016)]
--- NOTE | 2016-12-23 07:02 | ED CLINICAL REPORT ---
Clinical Report - Physicians/Mid Levels [facility] [address] [place] [address] 12/23/2016 3:31 Patient: MAREN COVARRUBIAS Time Seen: 03:41. Arrived- By private vehicle. Historian- patient. History limited by intoxication. Physical Exam limited by intoxication. HISTORY OF PRESENT ILLNESS Chief Complaint: INTOXICATED. Wants to enter detox program. Duration of substance abuse- many years. Substances abused: he has been drinking a fifth of alcohol a day for years now. He reports "I need something to calm down". He states that he needs ativan. He reports he is scheduled to go to [place] tomorrow morning for treatment but they will not take him if he is intoxicated. The patient has had nausea and tremors. He has had vomiting (he reports that he has had coffee-ground vomiting in the past but denies any recently). The symptoms are described as severe. No injuries noted. Similar symptoms previously: Many times. REVIEW OF SYSTEMS No chills, fever, sweats, calf pain or chest pain. No cough, difficulty breathing, pedal edema, palpitations or abdominal pain. No constipation, diarrhea or urinary problems. He has had black stools (in the past - he denies any recently). All systems otherwise negative, except as recorded above. PAST HISTORY Problems: Hematuria. Head Injury. Hypertension. Alcoholism. Abdominal Pain. Alcohol abuse. Suicidal Ideation. COPD - Chronic Obstructive Pulmonary Disease. Seizure. Stomach Ulcers. Lifestyle / Substance Problems. Gastritis. Bipolar Disorder. Substance Abuse. Alcohol Intoxication. Sinus Tachycardia. Alcohol Withdrawal. Hypokalemia. Additional Surgeries: Endoscopy. Eye surgery. Gastric surgery. Leg surgery. Medications: Gabapentin Oral 300 mg, 2x a day. PriLOSEC Oral. Allergies: NKDA. SOCIAL HISTORY Current every day heavy tobacco smoker (cigar)- 1 pack per day. Heavy alcohol use. Patient is a longstanding alcoholic. Under the influence in E.D. FAMILY HISTORY Denies family medical history. ADDITIONAL NOTES The nursing notes have been reviewed. PHYSICAL EXAM Vital Signs: 12/23/2016 03:37 BP: 138/100. HR: 110. RR: 20. O2 saturation: 96%. Temp: 98.9 F. Pain level now: 01/16. Have been reviewed. Appearance: The patient's speech is slurred and odor of alcohol is present. Head: Head atraumatic. Eyes: Pupils equal, round and reactive to light. ENT: Normal ENT inspection. Airway intact. Moist mucous membranes. Pharynx normal. Neck: Normal inspection. Neck supple. CVS: Normal heart rate and rhythm. Heart sounds normal. Abdomen: Soft and nontender. No organomegaly. Back: Normal inspection. Rectal: Rectal exam normal and nontender. Stool heme negative. (POC test reference range: negative). Skin: Skin warm and dry. Normal skin color. No rash. Normal skin turgor. Extremities: Extremities exhibit normal ROM. No lower extremity edema. Neuro: Cranial nerves normal (as tested). LABS, X-RAYS, AND EKG Laboratory Tests: CBC w Diff: (RENAY: 12/23/2016 03:48) ( [facility] 12/23/2016 04:05) Final results Test Result Flag Units (Reference) WHITE BLOOD COUNT 6.4 K/uL (4.5-11.5) RED BLOOD COUNT 5.52 M/uL (4.50-5.90) HEMOGLOBIN 18.5 H gm/dL (13.5-17.5) HEMATOCRIT 54.6 H % (41.0-53.0) MEAN CELL VOLUME 99 fL (80-100) MEAN CORPUSCULAR HGB 34 pg (26-34) MEAN CORPUSCULAR HGB CONC 34 g/dL (31-37) RED CELL DISTRIBUTION WIDTH 16.1 H % (11.6-14.8) PLATELET COUNT 299 K/uL (150-400) LYMPH % 37.3 % (25-40) MONO % 6.3 % (3-14) GRANULOCYTE % 56.4 % (53-90) PT with INR: (RENAY: 12/23/2016 03:48) ( [facility] 12/23/2016 04:10) Final results Test Result Flag Units (Reference) INR 1.0 (0.8-1.2) Low Intensity Therapy: INR 1.5-2.0 PT range 18.5-23.1Mod.Intensity Therapy: INR 2.0-3.0 PT range 23.1-31.5High Intensity Therapy: INR 2.5-3.5 PT range 27.4-35.5High Intensity Therapy 2: INR 3.0-4.0 PT range 31.5-39.3 APTT 33 SECONDS (24-34) Ethyl Alcohol: (RENAY: 12/23/2016 03:48) ( OkgRcvd 12/23/2016 04:22) Final results Test Result Flag Units (Reference) ETHYL ALCOHOL 406 H mg/dL (3-10) CMP: (RENAY: 12/23/2016 03:48) ( OkgRcvd 12/23/2016 04:17) Final results Test Result Flag Units (Reference) GLUCOSE 145 H mg/dL (70-110) BUN 6 L mg/dL (7-18) CREATININE 0.6 mg/dL (0.6-1.3) Estimated GFR >60 mL/min Estimated GFR- >60 mL/min Note: Persistent reduction over 3 months in eGFR<60 mL/min/1.73 m2 defines CKD. Patients with eGFR values>=60 mL/min/1.73 m2 may also have CKD if evidence ofpersistent proteinuria. Additional information may be foundat www.kidney.org. SODIUM 142 mmol/L (136-145) POTASSIUM 2.9 *L mmol/L (3.5-5.1) CRITICAL RESULTS CALLEDCalled to 12/23/16 0416Were 2 patient identifiers used? YWas the result read back? Y CHLORIDE 106 mmol/L (98-107) CARBON DIOXIDE 24 mmol/L (21-32) CALCIUM 7.7 L mg/dL (8.5-10.1) TOTAL PROTEIN 7.0 g/dL (6.4-8.2) ALBUMIN 3.6 g/dL (3.3-5.0) BILIRUBIN, TOTAL 0.4 mg/dL (0.0-1.0) ALKALINE PHOSPHATASE 114 U/L (46-116) AST (SGOT) 26 U/L (15-37) ALT (SGPT) 27 U/L (12-78) MAGNESIUM 2.2 mg/dL (1.8-2.4) LIPASE 192 U/L (73-393) AMYLASE 37 U/L (25-115) Type & Screen: (RENAY: 12/23/2016 03:48) ( MsgRcvd 12/23/2016 04:50) Final results Test Result Flag Units (Reference) PATIENT BLOOD TYPE O Positive Above is a corrected result. [facility] reported [facility] ( [facility] 12[facility]23[facility]2016 04:26) as: PATIENT BLOOD TYPE O Positive ANTIBODY SCREEN NEGATIVE . PROGRESS AND PROCEDURES Course of Care: Patient is stable. Patient/family counseled. Old medical records reviewed. Disposition: Discharged. Condition: stable. CLINICAL IMPRESSION Chronic substance abuse- alcohol. Alcohol intoxication. Hypokalemia INSTRUCTIONS No driving or operating machinery. Stay with responsible adult family member (or other responsible adult). Do not smoke- benefits of smoking cessation discussed (>3 -10 minutes). Seek medical help to quit smoking. No alcohol. Seek medical help to quit drinking. Warnings: Further evaluation is necessary. GENERAL WARNINGS: Return or contact your physician immediately if your condition worsens or changes unexpectedly, if not improving as expected, or if other problems arise. Follow-up: Follow up with your doctor Dr. King Barbosa in four days. Call for the next available appointment. Understanding of the discharge instructions verbalized by patient. (Electronically signed by Godwin Yarbrough MD 12/24/2016 9:43)
--- NOTE | 2016-12-23 07:02 | ED ORDER SUMMARY ---
..... Patient: MAREN COVARRUBIAS OrderSheet [facility] VisitID: [id number] [address] [place] [address] 56y, M Registration Date/Time: 12/23/2016 ORDER SHEET Weight: 68.0 kg (stated) Allergies: NKDA GENERAL ORDERS: Dry Pan Feeder (Continuous) (Tachycardia ) (03:53 12/23/2016 HSoule verbal order read back to Arron THOMPSON) (3:55 HSoule) CBC w Diff Urgent (03:54 12/23/2016 HSoule verbal order read back to Arron THOMPSON) (Ack 3:57 AMcQuoid ER Tech1) (3:57 AMcQuoid ER Tech1) CMP Urgent (03:54 12/23/2016 HSoule verbal order read back to Arron THOMPSON) (Ack 3:57 AMcQuoid ER Tech1) (3:57 AMcQuoid ER Tech1) PT with INR Urgent (03:54 12/23/2016 HSoule verbal order read back to Arron THOMPSON) (Ack 3:57 AMcQuoid ER Tech1) (3:57 AMcQuoid ER Tech1) Amylase Urgent (03:54 12/23/2016 HSoule verbal order read back to Arron THOMPSON) (Ack 3:57 AMcQuoid ER Tech1) (3:57 AMcQuoid ER Tech1) Lipase Urgent (03:54 12/23/2016 HSoule verbal order read back to Arron THOMPSON) (Ack 3:57 AMcQuoid ER Tech1) (3:57 AMcQuoid ER Tech1) Type & Screen Urgent (03:54 12/23/2016 HSoule verbal order read back to Arron THOMPSON) (Ack 3:57 AMcQuoid ER Tech1) (3:57 AMcQuoid ER Tech1) PTT Urgent (03:54 12/23/2016 HSoule verbal order read back to Arron THOMPSON) (Ack 3:57 AMcQuoid ER Tech1) (3:57 AMcQuoid ER Tech1) Oxygen (2 L/min) (NC) (03:54 12/23/2016 HSoule verbal order read back to Arron THOMPSON) (3:55 HSoule) Pulse oximeter (03:54 12/23/2016 HSoule verbal order read back to Arron THOMPSON) (3:55 HSoule) Ethyl Alcohol Urgent (03:59 12/23/2016 HSoule verbal order read back to Arron THOMPSON) (3:59 AMcQuoid ER Tech1) MEDICATION ORDERS: KCl PO 20 meq (NOW) (04:17 12/23/2016 Arron THOMPSON) (Ack 4:19 HSoule) (4:30 HSoule) IV FLUIDS: IV Saline Lock (03:54 12/23/2016 HSoule verbal order read back to Arron THOMPSON) (3:55 HSoule) KCl IV 20 meq/100mL (HIGH ALERT MEDICATION, NOW, Run no faster than 10 mEq/hr) (04:17 12/23/2016 Arron THOMPSON) (Ack 4:19 HSoule) (4:29 HSoule) IV NS with Normal Saline 1 Liter: initial bolus none -, then 1000 mL/hr for X1 (NOW) (04:29 12/23/2016 HSoule verbal order read back to Arron THOMPSON) (4:29 HSoule) ORDER SHEET NOTES: [Electronically signed by Godwin Yarbrough MD (09:42 12/24/2016)] [Electronically signed by Hermelinda Bhardwaj (06:10 12/27/2016)] [Electronically locked/signed by Hermelinda Bhardwaj (06:10 12/27/2016)]
--- NOTE | 2016-12-23 07:02 | ED CLINICAL REPORT ---
Clinical Report - Physicians/Mid Levels [facility] [address] [place] [address] 12/23/2016 3:31 Patient: MAREN COVARRUBIAS Time Seen: 03:41. Arrived- By private vehicle. Historian- patient. History limited by intoxication. Physical Exam limited by intoxication. HISTORY OF PRESENT ILLNESS Chief Complaint: INTOXICATED. Wants to enter detox program. Duration of substance abuse- many years. Substances abused: he has been drinking a fifth of alcohol a day for years now. He reports "I need something to calm down". He states that he needs ativan. He reports he is scheduled to go to [place] tomorrow morning for treatment but they will not take him if he is intoxicated. The patient has had nausea and tremors. He has had vomiting (he reports that he has had coffee-ground vomiting in the past but denies any recently). The symptoms are described as severe. No injuries noted. Similar symptoms previously: Many times. REVIEW OF SYSTEMS No chills, fever, sweats, calf pain or chest pain. No cough, difficulty breathing, pedal edema, palpitations or abdominal pain. No constipation, diarrhea or urinary problems. He has had black stools (in the past - he denies any recently). All systems otherwise negative, except as recorded above. PAST HISTORY Problems: Hematuria. Head Injury. Hypertension. Alcoholism. Abdominal Pain. Alcohol abuse. Suicidal Ideation. COPD - Chronic Obstructive Pulmonary Disease. Seizure. Stomach Ulcers. Lifestyle / Substance Problems. Gastritis. Bipolar Disorder. Substance Abuse. Alcohol Intoxication. Sinus Tachycardia. Alcohol Withdrawal. Hypokalemia. Additional Surgeries: Endoscopy. Eye surgery. Gastric surgery. Leg surgery. Medications: Gabapentin Oral 300 mg, 2x a day. PriLOSEC Oral. Allergies: NKDA. SOCIAL HISTORY Current every day heavy tobacco smoker (cigar)- 1 pack per day. Heavy alcohol use. Patient is a longstanding alcoholic. Under the influence in E.D. FAMILY HISTORY Denies family medical history. ADDITIONAL NOTES The nursing notes have been reviewed. PHYSICAL EXAM Vital Signs: 12/23/2016 03:37 BP: 138/100. HR: 110. RR: 20. O2 saturation: 96%. Temp: 98.9 F. Pain level now: 01/16. Have been reviewed. Appearance: The patient's speech is slurred and odor of alcohol is present. Head: Head atraumatic. Eyes: Pupils equal, round and reactive to light. ENT: Normal ENT inspection. Airway intact. Moist mucous membranes. Pharynx normal. Neck: Normal inspection. Neck supple. CVS: Normal heart rate and rhythm. Heart sounds normal. Abdomen: Soft and nontender. No organomegaly. Back: Normal inspection. Rectal: Rectal exam normal and nontender. Stool heme negative. (POC test reference range: negative). Skin: Skin warm and dry. Normal skin color. No rash. Normal skin turgor. Extremities: Extremities exhibit normal ROM. No lower extremity edema. Neuro: Cranial nerves normal (as tested). LABS, X-RAYS, AND EKG Laboratory Tests: CBC w Diff: (RENAY: 12/23/2016 03:48) ( [facility] 12/23/2016 04:05) Final results Test Result Flag Units (Reference) WHITE BLOOD COUNT 6.4 K/uL (4.5-11.5) RED BLOOD COUNT 5.52 M/uL (4.50-5.90) HEMOGLOBIN 18.5 H gm/dL (13.5-17.5) HEMATOCRIT 54.6 H % (41.0-53.0) MEAN CELL VOLUME 99 fL (80-100) MEAN CORPUSCULAR HGB 34 pg (26-34) MEAN CORPUSCULAR HGB CONC 34 g/dL (31-37) RED CELL DISTRIBUTION WIDTH 16.1 H % (11.6-14.8) PLATELET COUNT 299 K/uL (150-400) LYMPH % 37.3 % (25-40) MONO % 6.3 % (3-14) GRANULOCYTE % 56.4 % (53-90) PT with INR: (RENAY: 12/23/2016 03:48) ( [facility] 12/23/2016 04:10) Final results Test Result Flag Units (Reference) INR 1.0 (0.8-1.2) Low Intensity Therapy: INR 1.5-2.0 PT range 18.5-23.1Mod.Intensity Therapy: INR 2.0-3.0 PT range 23.1-31.5High Intensity Therapy: INR 2.5-3.5 PT range 27.4-35.5High Intensity Therapy 2: INR 3.0-4.0 PT range 31.5-39.3 APTT 33 SECONDS (24-34) Ethyl Alcohol: (RENAY: 12/23/2016 03:48) ( IdgRcvd 12/23/2016 04:22) Final results Test Result Flag Units (Reference) ETHYL ALCOHOL 406 H mg/dL (3-10) CMP: (RENAY: 12/23/2016 03:48) ( IdgRcvd 12/23/2016 04:17) Final results Test Result Flag Units (Reference) GLUCOSE 145 H mg/dL (70-110) BUN 6 L mg/dL (7-18) CREATININE 0.6 mg/dL (0.6-1.3) Estimated GFR >60 mL/min Estimated GFR- >60 mL/min Note: Persistent reduction over 3 months in eGFR<60 mL/min/1.73 m2 defines CKD. Patients with eGFR values>=60 mL/min/1.73 m2 may also have CKD if evidence ofpersistent proteinuria. Additional information may be foundat www.[email or web address]. SODIUM 142 mmol/L (136-145) POTASSIUM 2.9 *L mmol/L (3.5-5.1) CRITICAL RESULTS CALLEDCalled to 12/23/16 0416Were 2 patient identifiers used? YWas the result read back? Y CHLORIDE 106 mmol/L (98-107) CARBON DIOXIDE 24 mmol/L (21-32) CALCIUM 7.7 L mg/dL (8.5-10.1) TOTAL PROTEIN 7.0 g/dL (6.4-8.2) ALBUMIN 3.6 g/dL (3.3-5.0) BILIRUBIN, TOTAL 0.4 mg/dL (0.0-1.0) ALKALINE PHOSPHATASE 114 U/L (46-116) AST (SGOT) 26 U/L (15-37) ALT (SGPT) 27 U/L (12-78) MAGNESIUM 2.2 mg/dL (1.8-2.4) LIPASE 192 U/L (73-393) AMYLASE 37 U/L (25-115) Type & Screen: (RENAY: 12/23/2016 03:48) ( MsgRcvd 12/23/2016 04:50) Final results Test Result Flag Units (Reference) PATIENT BLOOD TYPE O Positive Above is a corrected result. Previously reported on ( [facility] 12/23/2016 04:26) as: PATIENT BLOOD TYPE O Positive ANTIBODY SCREEN NEGATIVE . PROGRESS AND PROCEDURES Course of Care: Patient is stable. Patient/family counseled. Old medical records reviewed. Disposition: Discharged. Condition: stable. CLINICAL IMPRESSION Chronic substance abuse- alcohol. Alcohol intoxication. Hypokalemia INSTRUCTIONS No driving or operating machinery. Stay with responsible adult family member (or other responsible adult). Do not smoke- benefits of smoking cessation discussed (>3 -10 minutes). Seek medical help to quit smoking. No alcohol. Seek medical help to quit drinking. Warnings: Further evaluation is necessary. GENERAL WARNINGS: Return or contact your physician immediately if your condition worsens or changes unexpectedly, if not improving as expected, or if other problems arise. Follow-up: Follow up with your doctor Dr. King Barbosa in four days. Call for the next available appointment. Understanding of the discharge instructions verbalized by patient. (Electronically signed by Godwin Yarbrough MD 12/24/2016 9:43)
--- NOTE | 2016-12-27 06:10 | ED MED RECONCILIATION SUMMARY ---
Patient: MAREN COVARRUBIAS Medication Reconciliation Report [facility] VisitID: [id number] [address] [place] [address] 56y, M Registration Date/Time: 12/23/2016 Weight: 68.0 kg Height/Length: 65 in. BMI: 25.0 ALLERGIES: NKDA The patient's Home Medications are listed below: THE FOLLOWING MEDICATIONS NEED TO BE RECONCILED: Gabapentin Oral 300 mg, 2x a day PriLOSEC Oral The source(s) of the original Home Medication information: patient The following Medications were given to the patient in the Emergency Department: KCL [IVPB] IVPB bolus 0, then 20 meq 50 mL/hr, administered: 12/23/2016 4:29:00 AM IV NS IV Fluids bolus 0, then 1000 mL/hr, administered: 12/23/2016 4:29:00 AM KCL [PO] PO 20 meq, administered: 12/23/2016 4:30:00 AM The following Medications were prescribed to the patient: None.
--- NOTE | 2016-12-27 06:10 | ED MAR SUMMARY ---
..... Medication Administration Record [facility] [address] [place] [address] Patient: MAREN COVARRUBIAS Visit ID: [id number] 56y, M Weight: 68.0 kg Height/Length: 65 in BMI: 25 ALLERGIES: NKDA Start 04:29 12/23/2016 Hermelinda Bhardwaj,, Stop 06:45 12/23/2016 Hermelinda Bhardwaj, Medication Administered: KCL [IVPB] (POTASSIUM CHLORIDE), Dose: 20 meq IVPB over 2 hour(s), Rate: 50 mL/hr, Dispensed: 100 mL bag, Site: #1 left AC. Medication Ordered: KCl IV 20 meq/100mL (HIGH ALERT MEDICATION, NOW, Run no faster than 10 mEq/hr). Start 04:29 12/23/2016 Hermelinda Bhardwaj,, Stop 05:40 12/23/2016 Hermelinda Bhardwaj, Medication Administered: IV NS (SALINE), Dose: IV Fluids over 1 hour(s), Rate: 1000 mL/hr, Dispensed: 1000 mL bag, Site: #1 left AC. Medication Ordered: IV NS with Normal Saline 1 Liter: initial bolus none -, then 1000 mL/hr for X1 (NOW). Given 04:30 12/23/2016 Hermelinda Bhardwaj, Medication Administered: KCL [PO] (POTASSIUM CHLORIDE ER), Dose: 20 meq Capsules PO. Medication Ordered: KCl PO 20 meq (NOW).
--- NOTE | 2016-12-27 06:10 | ED DISCHARGE INSTRUCTIONS ---
Patient: MAREN COVARRUBIAS General Instructions [facility] VisitID: [id number] [address] [place] [address] 56y, M Registration Date/Time: 12/23/2016 Chronic substance abuse- alcohol. Alcohol intoxication. Hypokalemia INSTRUCTIONS No driving or operating machinery. Stay with responsible adult family member (or other responsible adult). Do not smoke- benefits of smoking cessation discussed (>3 -10 minutes). Seek medical help to quit smoking. No alcohol. Seek medical help to quit drinking. Warnings: Further evaluation is necessary. GENERAL WARNINGS: Return or contact your physician immediately if your condition worsens or changes unexpectedly, if not improving as expected, or if other problems arise. Follow-up: Follow up with your doctor Dr. King Barbosa in four days. Call for the next available appointment. Understanding of the discharge instructions verbalized by patient. ADDITIONAL INFORMATION Alcohol Intoxication Alcohol intoxication occurs when you drink alcohol faster than your liver can remove it from your system. Alcohol intoxication affects your judgment and coordination. Very high blood alcohol levels can cause coma, very slow breathing and even . If you drink alcohol every day, this may gradually cause permanent damage to your liver, brain, heart, pancreas and other organs. Alcohol use during may cause permanent damage to the growing baby. Home Care: Do not drink any more alcohol. DO NOT DRIVE until all effects of the alcohol have worn off. Get lots of rest over the next few days. Drink plenty of water and other non-alcoholic liquids. Try to eat regular meals. If you have been drinking heavily on a daily basis, you may go through alcohol withdrawl. This is also called the shakes or DTs. The usual symptoms last 3 to 4 days and may include nervousness, shakiness, nausea, sweating or sleeplessness. During this time, it is best that you stay with family or friends who can help and support you. You can also admit yourself to a residential detox program. If your symptoms are severe, contact your doctor for medicines to help. Follow Up: If alcohol is causing a problem in your life, these and other organizations can help you: Alcoholics Anonymous offers support through a self-help fellowship. There are no dues or fees. See the Yellow Pages and call for time and place of meetings. www.aa.org [employer] offers support to families of alcohol users. 419.146.3122 www.al-haylie.org National [place] On Alcoholism And Drug Dependence 719-107-7512 www.ncadd.org There are also inpatient or residential alcohol detox programs. Check the Internet or phonebook Yellow Pages under Drug Abuse & Treatment Centers. Get Prompt Medical Attention if any of the following occur: there) Hypokalemia Hypokalemia means a low level of potassium in the blood. This most often occurs in patients who take diuretics (water pills). It can also occur due to severe vomiting or diarrhea. A mild case usually causes no symptoms. It is only found with blood testing. More severe potassium loss causes generalized weakness, muscle or abdominal cramping, heart palpitations (rapid or irregular heartbeats) and low blood pressure. Home Care: 1) Take any potassium supplements prescribed. 2) Eat foods rich in potassium. The highest amount is found in artichoke, baked potatoes, spinach, cantaloupe, honeydew melon, cod, halibut, salmon, and scallops. White, red, or weaver beans are also very good sources. A modest amount is found in orange juice, bananas, carrots, and tomato juice. 3) Certain types of diuretics (water pills), such as Lasix (furosemide), require that you take potassium supplements for as long as you take the diuretic pills. If you are taking a diuretic, discuss the need for potassium supplements with your doctor. Follow Up with your doctor for a repeat blood test within the next week or as advised by our staff. Get Prompt Medical Attention if any of the following occur: -- Increased weakness -- Feeling dizzy -- Irregular heartbeat, extra beats or very fast heart rate -- Fainting spell How To Quit Smoking Smoking is one of the hardest habits to break. About half of all those who have ever smoked have been able to quit, and most of those (about 70%) who still smoke want to quit. Here are some of the best ways to stop smoking. Keep Trying: It takes most smokers about 8 tries before they are finally able to fully quit. So, the more often you try and fail, the better your chance of quitting the next time! So, don't give up! Go Cold [place]: Most ex-smokers quit cold turkey. Trying to cut back gradually doesn't seem to work as well, perhaps because it continues the smoking habit. Also, it is possible to fool yourself by inhaling more while smoking fewer cigarettes. This results in the same amount of nicotine in your body! Get Support: Support programs can make an important difference, especially for the heavy smoker. These groups offer lectures, methods to change your behavior and peer support. Call the free national Quitline for more information. 655-QYOD-DXZ (317-696-1965). Low-cost or free programs are offered by many hospitals, local chapters of the [place] [employer] (705-750-8710) and the [place] [employer] (832-466-9045). Support at home is important too. Non-smokers can help by offering praise and encouragement. If the smoker fails to quit, encourage them to try again! Rtkt-Efq-Xbqgxwo Medicines: For those who can't quit on their own, Nicotine Replacement Therapy (NRT) may make quitting much easier. Certain aids such as the nicotine patch, gum and lozenge are available without a prescription. However, it is best to use these under the guidance of your doctor. The skin patch provides a steady supply of nicotine to the body. Nicotine gum and lozenge gives temporary bursts of low levels of nicotine. Both methods take the edge off the craving for cigarettes. WARNING: If you feel symptoms of nicotine overdose, such as nausea, vomiting, dizziness, weakness, or fast heartbeat, stop using these and see your doctor. Prescription Medicines: After evaluating your smoking patterns and prior attempts at quitting, your doctor may offer a prescription medicine such as bupropion (Zyban, Wellbutrin), varenicline (Chantix, Champix), a niocotine inhaler or nasal spray. Each has its unique advantage and side effects which your doctor can review with you. Health Benefits Of Quitting: The benefits of quitting start right away and keep improving the longer you go without smokin minutes: blood pressure and pulse return to normal 8 hours: oxygen levels return to normal 2 days: ability to smell and taste begins to improve as damaged nerves start to regrow 2-3 weeks: circulation and lung function improves 1-9 months: decreased cough, congestion and shortness of breath; less tired 1 year: risk of heart attack decreases by half 5 years: risk of lung cancer decreases by half; risk of stroke becomes the same as a non-smoker For information about how to quit smoking, visit the following links: National Cancer [place] , Clearing the Air, Quit Smoking Today - an online booklet. http://www.smokefree.gov/pubs/clearing_the_air.pdf Smokefree.gov http://smokefree.gov/ QuitNet http://www.quitnet.com/ You have been given the following additional information: Alcohol Intoxication Hypokalemia Smoking Cessation No driving or operating machinery. Stay with responsible adult family member (or other responsible adult). (Electronically signed by Godwin Yarbrough MD 12/24/2016 9:43)
--- NOTE | 2016-12-27 06:10 | ED DISCHARGE INSTRUCTIONS ---
Patient: MAREN COVARRUBIAS General Instructions [facility] VisitID: [id number] [address] [place] [address] 56y, M Registration Date/Time: 12/23/2016 Chronic substance abuse- alcohol. Alcohol intoxication. Hypokalemia INSTRUCTIONS No driving or operating machinery. Stay with responsible adult family member (or other responsible adult). Do not smoke- benefits of smoking cessation discussed (>3 -10 minutes). Seek medical help to quit smoking. No alcohol. Seek medical help to quit drinking. Warnings: Further evaluation is necessary. GENERAL WARNINGS: Return or contact your physician immediately if your condition worsens or changes unexpectedly, if not improving as expected, or if other problems arise. Follow-up: Follow up with your doctor Dr. King Barbosa in four days. Call for the next available appointment. Understanding of the discharge instructions verbalized by patient. ADDITIONAL INFORMATION Alcohol Intoxication Alcohol intoxication occurs when you drink alcohol faster than your liver can remove it from your system. Alcohol intoxication affects your judgment and coordination. Very high blood alcohol levels can cause coma, very slow breathing and even . If you drink alcohol every day, this may gradually cause permanent damage to your liver, brain, heart, pancreas and other organs. Alcohol use during may cause permanent damage to the growing baby. Home Care: Do not drink any more alcohol. DO NOT DRIVE until all effects of the alcohol have worn off. Get lots of rest over the next few days. Drink plenty of water and other non-alcoholic liquids. Try to eat regular meals. If you have been drinking heavily on a daily basis, you may go through alcohol withdrawl. This is also called the shakes or DTs. The usual symptoms last 3 to 4 days and may include nervousness, shakiness, nausea, sweating or sleeplessness. During this time, it is best that you stay with family or friends who can help and support you. You can also admit yourself to a residential detox program. If your symptoms are severe, contact your doctor for medicines to help. Follow Up: If alcohol is causing a problem in your life, these and other organizations can help you: Alcoholics Anonymous offers support through a self-help fellowship. There are no dues or fees. See the Yellow Pages and call for time and place of meetings. www.aa.org [employer] offers support to families of alcohol users. 446.309.4534 www.al-haylie.org National [place] On Alcoholism And Drug Dependence 777-159-9933 www.ncadd.org There are also inpatient or residential alcohol detox programs. Check the Internet or phonebook Yellow Pages under Drug Abuse & Treatment Centers. Get Prompt Medical Attention if any of the following occur: there) Hypokalemia Hypokalemia means a low level of potassium in the blood. This most often occurs in patients who take diuretics (water pills). It can also occur due to severe vomiting or diarrhea. A mild case usually causes no symptoms. It is only found with blood testing. More severe potassium loss causes generalized weakness, muscle or abdominal cramping, heart palpitations (rapid or irregular heartbeats) and low blood pressure. Home Care: 1) Take any potassium supplements prescribed. 2) Eat foods rich in potassium. The highest amount is found in artichoke, baked potatoes, spinach, cantaloupe, honeydew melon, cod, halibut, salmon, and scallops. White, red, or weaver beans are also very good sources. A modest amount is found in orange juice, bananas, carrots, and tomato juice. 3) Certain types of diuretics (water pills), such as Lasix (furosemide), require that you take potassium supplements for as long as you take the diuretic pills. If you are taking a diuretic, discuss the need for potassium supplements with your doctor. Follow Up with your doctor for a repeat blood test within the next week or as advised by our staff. Get Prompt Medical Attention if any of the following occur: -- Increased weakness -- Feeling dizzy -- Irregular heartbeat, extra beats or very fast heart rate -- Fainting spell How To Quit Smoking Smoking is one of the hardest habits to break. About half of all those who have ever smoked have been able to quit, and most of those (about 70%) who still smoke want to quit. Here are some of the best ways to stop smoking. Keep Trying: It takes most smokers about 8 tries before they are finally able to fully quit. So, the more often you try and fail, the better your chance of quitting the next time! So, don't give up! Go Cold [place]: Most ex-smokers quit cold turkey. Trying to cut back gradually doesn't seem to work as well, perhaps because it continues the smoking habit. Also, it is possible to fool yourself by inhaling more while smoking fewer cigarettes. This results in the same amount of nicotine in your body! Get Support: Support programs can make an important difference, especially for the heavy smoker. These groups offer lectures, methods to change your behavior and peer support. Call the free national Quitline for more information. 335-MGKT-IZY (119-381-2839). Low-cost or free programs are offered by many hospitals, local chapters of the [place] [employer] (703-856-6293) and the [place] [employer] (345-875-7889). Support at home is important too. Non-smokers can help by offering praise and encouragement. If the smoker fails to quit, encourage them to try again! Igba-Hnj-Ifgyeot Medicines: For those who can't quit on their own, Nicotine Replacement Therapy (NRT) may make quitting much easier. Certain aids such as the nicotine patch, gum and lozenge are available without a prescription. However, it is best to use these under the guidance of your doctor. The skin patch provides a steady supply of nicotine to the body. Nicotine gum and lozenge gives temporary bursts of low levels of nicotine. Both methods take the edge off the craving for cigarettes. WARNING: If you feel symptoms of nicotine overdose, such as nausea, vomiting, dizziness, weakness, or fast heartbeat, stop using these and see your doctor. Prescription Medicines: After evaluating your smoking patterns and prior attempts at quitting, your doctor may offer a prescription medicine such as bupropion (Zyban, Wellbutrin), varenicline (Chantix, Champix), a niocotine inhaler or nasal spray. Each has its unique advantage and side effects which your doctor can review with you. Health Benefits Of Quitting: The benefits of quitting start right away and keep improving the longer you go without smokin minutes: blood pressure and pulse return to normal 8 hours: oxygen levels return to normal 2 days: ability to smell and taste begins to improve as damaged nerves start to regrow 2-3 weeks: circulation and lung function improves 1-9 months: decreased cough, congestion and shortness of breath; less tired 1 year: risk of heart attack decreases by half 5 years: risk of lung cancer decreases by half; risk of stroke becomes the same as a non-smoker For information about how to quit smoking, visit the following links: National Cancer [place] , Clearing the Air, Quit Smoking Today - an online booklet. http://www.smokefree.gov/pubs/clearing_the_air.pdf Smokefree.gov http://smokefree.gov/ QuitNet http://www.quitnet.com/ You have been given the following additional information: Alcohol Intoxication Hypokalemia Smoking Cessation No driving or operating machinery. Stay with responsible adult family member (or other responsible adult). (Electronically signed by Godwin Yarbrough MD 12/24/2016 9:43)
--- NOTE | 2016-12-27 06:10 | ED MAR SUMMARY ---
..... Medication Administration Record [facility] [address] [place] [address] Patient: MAREN COVARRUBIAS Visit ID: [id number] 56y, M Weight: 68.0 kg Height/Length: 65 in BMI: 25 ALLERGIES: NKDA Start 04:29 12/23/2016 Hermelinda Bhardwaj,, Stop 06:45 12/23/2016 Hermelinda Bhardwaj, Medication Administered: KCL [IVPB] (POTASSIUM CHLORIDE), Dose: 20 meq IVPB over 2 hour(s), Rate: 50 mL/hr, Dispensed: 100 mL bag, Site: #1 left AC. Medication Ordered: KCl IV 20 meq/100mL (HIGH ALERT MEDICATION, NOW, Run no faster than 10 mEq/hr). Start 04:29 12/23/2016 Hermelinda Bhardwaj,, Stop 05:40 12/23/2016 Hermelinda Bhardwaj, Medication Administered: IV NS (SALINE), Dose: IV Fluids over 1 hour(s), Rate: 1000 mL/hr, Dispensed: 1000 mL bag, Site: #1 left AC. Medication Ordered: IV NS with Normal Saline 1 Liter: initial bolus none -, then 1000 mL/hr for X1 (NOW). Given 04:30 12/23/2016 Hermelinda Bhardwaj, Medication Administered: KCL [PO] (POTASSIUM CHLORIDE ER), Dose: 20 meq Capsules PO. Medication Ordered: KCl PO 20 meq (NOW).
--- NOTE | 2016-12-27 06:10 | ED MED RECONCILIATION SUMMARY ---
Patient: MAREN COVARRUBIAS Medication Reconciliation Report [facility] VisitID: [id number] [address] [place] [address] 56y, M Registration Date/Time: 12/23/2016 Weight: 68.0 kg Height/Length: 65 in. BMI: 25.0 ALLERGIES: NKDA The patient's Home Medications are listed below: THE FOLLOWING MEDICATIONS NEED TO BE RECONCILED: Gabapentin Oral 300 mg, 2x a day PriLOSEC Oral The source(s) of the original Home Medication information: patient The following Medications were given to the patient in the Emergency Department: KCL [IVPB] IVPB bolus 0, then 20 meq 50 mL/hr, administered: 12/23/2016 4:29:00 AM IV NS IV Fluids bolus 0, then 1000 mL/hr, administered: 12/23/2016 4:29:00 AM KCL [PO] PO 20 meq, administered: 12/23/2016 4:30:00 AM The following Medications were prescribed to the patient: None.
[2016-12-29] MEDS ORDERED: CLONIDINE HCL0.1 MG PO (13:41)
[2016-12-29] MEDS ORDERED: LORAZEPAM1 MG PO (13:41)
[2016-12-29] MEDS ORDERED: THIAMINE HCL100 MG PO (13:41)
[2016-12-29] MEDS ORDERED: FOLIC ACID1 MG PO (13:41)
== END 2016-12-23 06:50 | disposition home or self-care (01) ==
LOC: ED SRH 03:32
DX: F10.129 Alcohol abuse with intoxication, unspecified (principal); E87.6 Hypokalemia; F17.210 Nicotine dependence, cigarettes, uncomplicated; J44.9 Chronic obstructive pulmonary disease, unspecified; I10 Essential (primary) hypertension; Z79.899 Other long term (current) drug therapy
CPT/HCPCS: 90001; 90100; 90155; 91004; 92010; 92235; 92530; 92720; 94001; 94060; 95059